=== PATIENT | male | born 1930 | race Caucasian/White ===

== ENCOUNTER → 2016-04-29 | Outpatient (CLI) | payer OTHER ==
[~2016-04-29] MED LIST: ACET1TAB84 PO; ASPI81TA28 PO; CALC500C70 PO; CHOL100010 PO; CLOP1TAB15 PO; CPR500 PO; CRD200 PO; DUTA0.5C PO; FLM4 PO; FRRS300 PO; LDDP5 TD; LISI40TA PO; LPR25 PO; MCLIN; MISC1CAP60 PO; MTR500 PO; OXYC-57 PO; PRAV20TA PO; RXC5 PO; SACC250C3 PO; TRAM-10 PO; VLTG EXT
[2016-04-29 18:05] LABS: URINE APPEARANCE CLEAR (CLEAR); URINE BILIRUBIN NEG (NEG); URINE COLOR YELLOW; URINE NITRITE NEG (NEG); URINE SPECIFIC GRAVITY 1.013 (1.000-1.030); UROBILINOGEN NEG (NEG)
[2016-04-29 18:21] LABS: MANUAL MICROSCOPIC REQUIRED? NO; REVIEW REQ? NO
== END | disposition home or self-care (01) ==
LOC: C.LABMFLN 14:43
PROVIDERS: ATTEND Family Medicine
DX: R35.0 Frequency of micturition (principal)

== ENCOUNTER 2016-05-15 05:57 | Inpatient (IN) | payer OTHER ==
--- NOTE | 2016-05-08 09:41 | PAT Medication Instructions ---
Service Date May 08, 2016. Current Home Medication List Acetaminophen (Tylenol Arthritis Ext Rel), 1-2 TAB PO Q8H PRN for Pain Aspirin (Aspirin Ec), 81 MG PO AFTERNOON Calcium/Vitamin D (Os-Ramez 500 Plus D), 1 TAB PO QD Cholecalciferol (Vitamin D), 1 TAB PO BID Clopidogrel (Plavix), 75 MG PO QPM Dutasteride (Avodart), 0.5 MG PO QD Lisinopril (Zestril), 40 MG PO QD Misc Natural Products (Saw Craig), Unknown Dose PO BID Pravastatin (Pravachol ), 20 MG PO QPM Tamsulosin HCl (Tamsulosin HCl), 0.4 MG PO DAILY Tramadol (Ultram), 50 MG PO Q8H PRN for Pain Medication Instructions For Your Scheduled Surgery - Hold the following medications as of 05/11/16 (per surgeons instructions): Clopidogrel (Plavix), 75 MG PO QPM - Hold the following medications as of 05/09/16: [employer] Natural Products (Saw Craig), Unknown Dose PO BID - Hold the following medications the morning of surgery: Lisinopril (Zestril), 40 MG PO QD Calcium/Vitamin D (Os-Ramez 500 Plus D), 1 TAB PO QD Cholecalciferol (Vitamin D), 1 TAB PO BID - Take the following medications the morning of surgery with a sip of water OTHERWISE NOTHING TO EAT OR DRINK AFTER MIDNIGHT: Acetaminophen (Tylenol Arthritis Ext Rel), 1-2 TAB PO Q8H PRN for Pain (okay to take if needed up to 4 hours prior to surgery) Tramadol (Ultram), 50 MG PO Q8H PRN for Pain (okay to take if needed up to 4 hours prior to surgery) Tamsulosin HCl (Tamsulosin HCl), 0.4 MG PO DAILY Dutasteride (Avodart), 0.5 MG PO QD - Take the following medications as scheduled the evening before surgery: Acetaminophen (Tylenol Arthritis Ext Rel), 1-2 TAB PO Q8H PRN for Pain Pravastatin (Pravachol ), 20 MG PO QPM Cholecalciferol (Vitamin D), 1 TAB PO BID Aspirin (Aspirin Ec), 81 MG PO AFTERNOON If you have any questions please call us at [phone] or [phone] or [phone]
[2016-05-08 10:04] LABS: MEAN CORPUSCULAR HGB CONC 33.1 g/dl (32-36); PLATELET COUNT 118 K/uL (130-400)
[2016-05-08 10:10] LABS: INR 1.1 (0.9-1.1); PARTIAL THROMBOPLASTIN RATIO 0.9; PROTHROMBIN TIME (PATIENT) 11.4 SECONDS (9.0-12.0)
--- NOTE | 2016-05-08 10:18 | DIAGNOSTIC IMAGING REPORT ---
CHEST PREADMISSION(PA/LAT) CLINICAL HISTORY: Preoperative evaluation. COMPARISON STUDY: Chest radiograph November 16, 2015. FINDINGS: Lung volumes are normal. Linear bibasilar opacities favor atelectasis. There is no evidence of pulmonary edema. Mild cardiomegaly is noted. No pneumothorax or pleural effusion is present. The appearance of the chest is unchanged. Lateral view demonstrates compression deformities of two thoracic vertebra which are new since exam of November 16, 2015. IMPRESSION: 1. No acute cardiopulmonary findings. 2. Mild cardiomegaly. 3. Linear bibasilar opacities suggestive of atelectasis. 4. Two thoracic spine compression fractures which are new since exam of November 16, 2015. Electronically signed by: Pavan Balderas M.D. 05/08/2016 10:15 AM Dictated Date/Time: 05/08/2016 10:14 AM
[2016-05-08 10:29] LABS: HEMATOCRIT 37.5 % (42-52); MEAN CELL VOLUME 101.1 fL (80-100); MEAN CORPUSCULAR HEMOGLOBIN 33.4 pg (25-34); RED BLOOD COUNT 3.71 M/uL (4.7-6.1); WHITE BLOOD COUNT 21.82 K/uL (4.8-10.8)
[2016-05-08 10:58] LABS: BUN/CREATININE RATIO 32.7 (10-20); CALCIUM 9.4 mg/dl (8.5-10.1); CREATININE 1.2 mg/dl (0.60-1.40); POTASSIUM 5.2 mmol/L (3.5-5.1)
[2016-05-08 11:11] LABS: COMPLETE YES; EOSINOPHIL % 0.9 %; LYMPH ABS # 18.35 K/uL (1.2-3.4); LYMPHOCYTE % 84.1 %; SMUDGE CELLS PRESENT
[~2016-05-15] VITALS: Ht 165.1 cm; Wt 60.7 kg
[2016-05-15] VITALS (20 sets, daily range): BP systolic 82–179; BP diastolic 41–95; PULSE 51–84; TEMP 36–36.8; O2SAT 95–99; Ht 165.1 cm; Wt 60.7 kg
[~2016-05-15 05:57] MED LIST changes: -CPR500 PO; -CRD200 PO; -FRRS300 PO; -LDDP5 TD; -LPR25 PO; -MCLIN; -MTR500 PO; -OXYC-57 PO; -RXC5 PO; -SACC250C3 PO; -VLTG EXT; +[UNRECOGNIZED DRUG - REMARK] SCH
[2016-05-15] MEDS ORDERED: HYDROCORTISONE IV 100 MG in SYRINGE 0 ML IV ONE (06:00)
[2016-05-15] MEDS ORDERED: SODIUM CHLORIDE 0.9% 1000ML 1,000 ML IV SCH (06:00)
[2016-05-15] MEDS ORDERED: CEFAZOLIN 1000MG/55 ML D5W IV SCH (06:00)
--- NOTE | 2016-05-15 06:25 | History and Physical ---
History & Physical CC: Abdominal aortic aneurysm HPI: Mr. 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 This appeared to be a pseudoaneurysm on the CTA. He does not have any history of significant back pain. He did have back surgery earlier this year. He said that it was for a fractured vertebral body which was compressed. This appears to be the same level of pseudoaneurysm. At this point, he denies any claudication or cerebrovascular insufficiency. He claims he had a stress test done prior to his back surgery which was normal. ALLERGIES: IVP DYE. MEDICATIONS: Aspirin, dutasteride, lisinopril, Plavix, pravastatin, saw palmetto, tamsulosin, tramadol and Tylenol. PAST MEDICAL HISTORY: Positive for hypertension, stroke, and lumbar vertebral fracture. PAST SURGICAL HISTORY: Includes tonsillectomy, hernia repair and back surgery. FAMILY HISTORY: Positive for hypertension, cancer and kidney disease. SOCIAL HISTORY: Does not smoke. He does not drink. REVIEW OF SYSTEMS: Ten systems were reviewed. Positive findings include a cold intolerance, joint swelling, hiatal hernia, constipation and occasional incontinence with prostate dysfunction. The rest of the review of systems is as per the HPI. PHYSICAL EXAMINATION: The patient is awake, oriented x3, has normal body habitus. He is in no apparent distress. His blood pressure is 140/84 on the left, 148/90 on the right. Head and neck within normal limits, no carotid bruits. Lungs are clear. Heart: Regular rate and rhythm. Abdominal exam is benign. I could not appreciate a pulsatile mass. Femoral pulses are +2 bilaterally and I could not appreciate pedal pulses yet, but he has good capillary refill in both feet. 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 PLAN AND RECOMMENDATIONS: Patient is admitted for a PEVAR repair of his abdominal aortic aneurysm. I have discussed the risks options and benefits of the procedure with the patient. The patient understands the risks options and benefits and agrees to the procedure.
[2016-05-15] MEDS ORDERED: MIDAZOLAM HCL 1 MG/ML 2ML VIAL ONE (07:08)
[2016-05-15] MEDS ORDERED: FENTANYL CITRATE INJ 50 MCG/1 ML 2 ML VIAL ONE ×3 (07:08→13:05)
[2016-05-15] MEDS ORDERED: EpHEDrine SULFATE INJ 50 MG/ML AMP IV PRN ×2 (07:15→13:15)
[2016-05-15] MEDS ORDERED: FENTANYL CITRATE INJ 50 MCG/1 ML 2 ML VIAL IV PRN ×2 (07:15→13:15)
[2016-05-15] MEDS ORDERED: ATROPINE SULFATE 0.1 MG/ML 5ML SYR IV PRN ×2 (07:15→13:15)
[2016-05-15 07:16] LABS: BUN/CREATININE RATIO 32.4 (10-20); CALCIUM 9.2 mg/dl (8.5-10.1); CREATININE 1.3 mg/dl (0.60-1.40); POTASSIUM 3.8 mmol/L (3.5-5.1)
[2016-05-15] MEDS ORDERED: HYDROCORTISONE SOD SUCCINATE 100 MG/2 ML VIAL ONE (07:17)
[2016-05-15] MEDS ORDERED: KETAMINE HCL INJ 50 MG/ML 10 ML VIAL ONE (08:28)
[2016-05-15] MEDS ORDERED: PROPOFOL IV EMULSION 10 MG/ML 20 ML VIAL IV ONE ×2 (09:34→12:07)
[2016-05-15] MEDS ORDERED: ESMOLOL HCL 10 MG/ML 10 ML VIAL ONE (09:34)
[2016-05-15] MEDS ORDERED: HEPARIN SOD (PORCINE) 1000 UNIT/ML 10 ML VIAL ONE (09:35)
[2016-05-15] MEDS ORDERED: SODIUM CHLORIDE 0.9% INJ 10 ML VIAL ONE (10:15)
[2016-05-15] MEDS ORDERED: IODIXANOL (VISIPAQUE) 270 MG/ML 150ML FLUSH ONE (11:13)
[2016-05-15] MEDS ORDERED: BUPIVACAINE/EPINEPHRINE 0.5% MPF 1:200,000 30 ML VIAL INFIL ONE (11:13)
[2016-05-15] MEDS ORDERED: EpHEDrine SULFATE 50MG/5ML SYR ONE (11:22)
[2016-05-15] MEDS ORDERED: GLYCOPYRROLATE INJ 0.2 MG/ML VIAL ONE (11:22)
[2016-05-15] MEDS ORDERED: NEOSTIGMINE METHYLSULFATE 5 MG/5 ML SYR ONE (11:22)
[2016-05-15] MEDS ORDERED: GELFOAM SIZE 100 TOP ONE (12:05)
[2016-05-15] MEDS ORDERED: BACITRACIN 50,000 UNITS IR ONE (12:07)
[2016-05-15] MEDS ORDERED: THROMBIN 20,000 UNITS (RECOMBINANT) TOP ONE (12:07)
--- NOTE | 2016-05-15 12:08 | [facility] Post Operative Brief Note ---
Immediate Operative Summary Operative Date May 15, 2016. Pre-Operative Diagnosis Abdominal Aortic Aneurysm Post-Operative Diagnosis Same Procedure(s) Performed Percutaneous Endovascular Anerysm Repair, Placement of Second Mainbody, Insertion of Iliac Plug left iliac Cross femoral bypass. Surgeon Dr. Morales Bruise Trimmer Surgeon(s) Sweetie Billingsley PAC Estimated Blood Loss 250 Findings no endoleaks seen Specimens None Anesthesia MAC and Gen Complication(s) None Disposition Recovery Room / PACU
[2016-05-15] MEDS ORDERED: MoRPHine SULFATE 4 MG/ML 1 ML CARP\\VIAL IV PRN (12:15)
[2016-05-15] MEDS ORDERED: ONDANSETRON INJ 2 MG/ML 2 ML VIAL IV PRN (12:15)
[2016-05-15] MEDS ORDERED: ROCURONIUM BROMIDE 10 MG/ML 5 ML VIAL ONE (12:37)
--- NOTE | 2016-05-15 12:56 | Anesthesiology Progress Note ---
Anesthesia Post Op Note Date & Time May 15, 2016 at 12:56 Vital Signs Pain Intensity: 0 Vital Signs Past 12 Hours Date Time Temp Pulse Resp B/P Pulse Ox O2 Delivery O2 Flow Rate FiO2 05/15/16 12:31 37.1 94 16 140/66 100 Mask 10 05/15/16 06:59 36.6 70 18 172/78 98 Room Air 179/95 Notes Mental Status: alert / awake / arousable, participated in evaluation Pt Amnestic to Procedure: Yes Nausea / Vomiting: adequately controlled Pain: adequately controlled Airway Patency, RR, SpO2: stable & adequate BP & HR: stable & adequate Hydration State: stable & adequate Anesthetic Complications: no major complications apparent
[2016-05-15 13:04] LABS: HEMATOCRIT 29.2 % (42-52)
--- NOTE | 2016-05-15 14:00 | Progress Note ---
Progress Note I assisted Dr Morales with Mode Holcomb's Percutaneous Endovascular Anerysm Repair , Placement of Second Mainbody, Insertion of Iliac Plug left iliac, Cross femoral bypass on 05/15/16, d/t lack of resident availability.
[2016-05-15] MEDS: CEFAZOLIN IV 1,000 MG in DEXTROSE 5% 50ML 50 ML IV SCH ×2 (15:07→23:45)
[2016-05-15] MEDS: D5W AND 1/2NSS 1,000 ML IV SCH (15:07)
[2016-05-15] MEDS ORDERED: INFLUENZA ADMINISTRATION CHARGE ONE ×2 (15:15→16:30)
[2016-05-15] MEDS ORDERED: INFLUENZA VIRUS QUAD VACCINE 0.5 ML SYR IM. ONE ×2 (15:15→20:00)
[2016-05-15] MEDS ORDERED: NURSING VERBAL MED ORDER ONE ×2 (15:30→20:45)
[2016-05-15] MEDS ORDERED: SODIUM CHLORIDE 0.9% 500ML 500 ML IV ONE (15:30)
[2016-05-15] MEDS: MoRPHine SULFATE 2 MG/ML CARP IV PRN ×2 (16:09→23:46)
[2016-05-15] MEDS ORDERED: HydrALAZINE HCL 20 MG/ML VIAL IV. ONE (20:45)
[2016-05-15] MEDS: CLOPIDOGREL BISULFATE 75 MG TAB PO SCH (20:53)
[2016-05-15] MEDS: CHOLECALCIFEROL 1000 INTER.UNIT TAB PO SCH (20:53)
[2016-05-15] MEDS: PRAVASTATIN SOD 20 MG TAB PO SCH (20:53)
[2016-05-15] MEDS: OXYCODONE/ACETAMINOPHEN 5-325 TAB PO PRN (20:55)
--- NOTE | 2016-05-15 21:31 | Critical Care Consultation ---
Critical Care Consultation Date of Consultation: May 15, 2016. Attending Physician: Timmy Morales M.D. 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 doing well, adequate pain control. denies any N/T, chest pain. SOB Past Medical/Surgical History PMH: hypertension, stroke, and lumbar vertebral fracture. PSH: tonsillectomy, hernia repair and back surgery. Family History hypertension, cancer and kidney disease. Social History Smoking Status: Never Smoker Marital Status: Occupation Status: retired Allergies Coded Allergies: Chlorpheniramine (Verified Allergy, Mild, PT UNSURE OF RXN, 05/15/16) Phenylpropanolamine (Verified Allergy, Mild, PT UNSURE OF RXN, 05/15/16) Antihistamines, Diphenhydramine-typ (Verified Allergy, Unknown, PT UNSURE OF RXN, 05/15/16) Iodinated Diagnostic Agents (Verified Allergy, Unknown, PT UNSURE OF RXN, 05/15/16) PATIENT REPORTS HAD BEEN PRE MEDICATED BEFORE THE USE OF THIS FOR A TEST WITHIN THE LAST 6 MON AND NO REACTION OCCURRED Pseudoephedrine (Verified Allergy, Unknown, PT UNSURE OF RXN, 05/08/16) Terfenadine (Verified Allergy, Unknown, PT UNSURE OF RXN, 05/08/16) Ticlopidine (Verified Allergy, Unknown, PT UNSURE OF RXN, ONLY WITH GENERIC FORM, 05/08/16) Home Medications Scheduled Aspirin (Aspirin Ec), 81 MG PO AFTERNOON Calcium/Vitamin D (Os-Ramez 500 Plus D), 1 TAB PO QD Cholecalciferol (Vitamin D), 1 TAB PO BID Clopidogrel (Plavix), 75 MG PO QPM Dutasteride (Avodart), 0.5 MG PO QD Lisinopril (Zestril), 40 MG PO QD Misc Natural Products (Saw [place]), Unknown Dose PO BID Pravastatin (Pravachol ), 20 MG PO QPM Tamsulosin HCl (Tamsulosin HCl), 0.4 MG PO DAILY Scheduled PRN Acetaminophen (Tylenol Arthritis Ext Rel), 1-2 TAB PO Q8H PRN for Pain Tramadol (Ultram), 50 MG PO Q8H PRN for Pain Current Inpatient Medications Current Inpatient Medications Medications (Trade) Dose Ordered Sig/Art Route Start Time Stop Time Status Last Admin Dose Admin Morphine Sulfate (MoRPHine SULFATE INJ) If PO analgesic is orde... Q2H PRN IV 05/15/16 12:15 05/29/16 12:14 Oxycodone/ Acetaminophen (Percocet 5-325mg Tab) `1-2 TABS FOR MODER... Q4H PRN PO 05/15/16 12:15 05/29/16 12:14 05/15/16 20:55 2 TAB Ondansetron HCl 4 mg 4 mg Q6H PRN IV 05/15/16 12:15 06/14/16 12:14 Pantoprazole Sodium 40 mg/ Syringe 10 ml @ 5 mls/min DAILY@11 IV 05/16/16 11:00 06/15/16 10:59 Cefazolin Sodium/ Dextrose (Ancef Iv/D5 50ml) 55 ml @ 100 mls/hr Q8H IV 05/15/16 16:00 05/16/16 00:32 05/15/16 15:07 100 MLS/HR Enoxaparin Sodium 30 mg 30 mg Q12H SQ 05/16/16 08:00 06/15/16 07:59 Dextrose/Sodium Chloride (D5W And 1/2nss) 1,000 ml @ 125 mls/hr Q8H IV 05/15/16 14:15 06/14/16 12:07 05/15/16 15:07 125 MLS/HR Aspirin (Ecotrin Tab) 81 mg DAILY PO 05/16/16 09:00 06/15/16 08:59 Calcium/Vitamin D (Caltrate Plus Tab) 1 tab DAILY@1200 PO 05/16/16 12:00 06/15/16 11:59 Cholecalciferol (Vitamin D Tab) 1,000 inter.unit BID PO 05/15/16 21:00 06/14/16 20:59 05/15/16 20:53 1,000 INTER.UNIT Clopidogrel Bisulfate (plAVix TAB) 75 mg QPM PO 05/15/16 21:00 06/14/16 20:59 05/15/16 20:53 75 MG Lisinopril (Zestril Tab) 40 mg DAILY PO 05/16/16 09:00 06/15/16 08:59 Pravastatin Sodium (Pravachol Tab) 20 mg QPM PO 05/15/16 21:00 06/14/16 20:59 05/15/16 20:53 20 MG Tamsulosin HCl (Flomax Cap) 0.4 mg DAILY PO 05/16/16 09:00 06/15/16 08:59 Miscellaneous Information (Order Awaiting Action) 1 ea QS N/A 05/15/16 16:00 06/14/16 15:59 Morphine Sulfate (MoRPHine SULFATE INJ) If PO analgesic is orde... Q2H PRN IV 05/15/16 13:30 05/29/16 13:29 05/15/16 16:09 2 MG Review of Systems Constitutional: No chills, No fever Eyes: No worsening of vision ENT: No hearing loss Respiratory: No cough, No sputum Cardiovascular: No chest pain Abdomen: + constipation, No nausea, No pain Musculoskeletal: No joint pain Genitourinary - Male: + urinary hesitancy, + urinary incontinence Physical Exam Date Time Temp Pulse Resp B/P Pulse Ox O2 Delivery O2 Flow Rate FiO2 05/15/16 17:58 61 20 139/60 97 Room Air 05/15/16 17:13 59 18 131/51 97 Room Air 05/15/16 16:59 60 19 102/45 98 Room Air 05/15/16 16:43 58 19 120/51 98 Room Air 05/15/16 16:30 36.3 63 18 114/50 98 05/15/16 16:13 59 17 124/56 99 Room Air 05/15/16 16:00 Room Air 05/15/16 15:58 61 18 127/54 97 Room Air 05/15/16 15:45 36.3 60 19 122/54 97 05/15/16 15:30 36.0 56 18 114/45 95 05/15/16 15:09 55 17 82/41 96 Room Air 05/15/16 15:05 51 18 83/43 98 Room Air 05/15/16 15:03 53 16 85/42 97 Room Air 05/15/16 14:58 53 17 87/46 96 Room Air 05/15/16 14:40 57 18 98/51 96 Room Air 05/15/16 14:28 58 13 96/50 95 Room Air 05/15/16 14:00 36.8 61 18 113/58 96 Room Air 05/15/16 13:20 36.8 61 16 121/63 100 Nasal Cannula 3 05/15/16 13:10 69 16 121/60 99 Nasal Cannula 3 05/15/16 13:00 63 16 130/60 99 Mask 10 05/15/16 12:50 72 16 128/69 99 Mask 10 05/15/16 12:40 80 16 127/73 98 Mask 10 05/15/16 12:31 37.1 94 16 140/66 100 Mask 10 05/15/16 06:59 36.6 70 18 172/78 98 Room Air 179/95 General Appearance: WD/WN, no apparent distress Head: normocephalic Eyes: normal inspection ENT: hearing grossly normal Neck: supple Respiratory/Chest: chest non-tender, lungs clear, normal breath sounds Cardiovascular: regular rate, rhythm Abdomen/GI: normal bowel sounds, non tender Extremities/Musculoskelatal: no pedal edema Neurologic/Psych: alert, normal mood/affect, oriented x 3 Laboratory Results Last 24 Hours Test 05/15/16 06:35 05/15/16 12:55 Sodium Level 141 mmol/L Potassium Level 3.8 mmol/L Chloride Level 105 mmol/L Carbon Dioxide Level 25 mmol/L Anion Gap 11.0 mmol/L Blood Urea Nitrogen 42 mg/dl Creatinine 1.30 mg/dl Est Creatinine Clear Calc Drug Dose 31.6 ml/min Estimated GFR () 56.9 Estimated GFR (Non- 49.1 BUN/Creatinine Ratio 32.4 Random Glucose 100 mg/dl Calcium Level 9.2 mg/dl Hemoglobin 9.7 g/dL Hematocrit 29.2 % Assessment & Plan 85 y/o M s/p abdominal aortic aneurysm repair on 05/15 Neuro: AAOX3 h/o stroke - aspirin and Plavix currently held AAA s/p PEVAR repair; - NPO except meds - Continue IVF - pain control with morphine and Percocet - Abx prophylaxis with cefazolin CVS: HTN: - lisinopril on hold - hydralzine PRN Hyperlipidemia: Continue pravastatin BPH; -continue tamsulosin GI/FEN: NPO protonix DVT : scds Lovenox sq tomorrow Resident Physician Supervision Note: Dr. Garcia Forrester was resident physician during care of patient. I separately evaluated patient and did history and exam. I discussed the case with the resident and generally agree with the findings and plan. Patient tolerating by mouth, mildly decreased urine output, will give Lasix 20 mg 1, decreased IV fluids to 100 MLS per hour. Routine postop care Documented By: Wilman Paulino DO
[2016-05-16] VITALS (20 sets, daily range): BP systolic 117–164; BP diastolic 55–95; PULSE 74–119; TEMP 36.4–36.8; O2SAT 94–100
[2016-05-16] MEDS: D5W AND 1/2NSS 1,000 ML IV SCH ×2 (01:30→07:31)
[2016-05-16] MEDS ORDERED: FUROSEMIDE INJ 20 MG in SYRINGE 0 ML IV ONE (02:00)
[2016-05-16] MEDS: MoRPHine SULFATE 2 MG/ML CARP IV PRN (02:59)
[2016-05-16 05:27] LABS: HEMATOCRIT 30.4 % (42-52)
[2016-05-16 05:57] LABS: BUN/CREATININE RATIO 23.9 (10-20); CREATININE 1.4 mg/dl (0.60-1.40); POTASSIUM 4.2 mmol/L (3.5-5.1)
[2016-05-16] MEDS ORDERED: NURSING VERBAL MED ORDER ONE ×2 (07:15→10:00)
[2016-05-16] MEDS ORDERED: METOPROLOL TARTRATE 1 MG/ML VIAL IV ONE (07:30)
[2016-05-16] MEDS ORDERED: MAGNESIUM SULFATE 1GM / D5W 1 GM in PREMIXED IN D5W 100 ML IV STA (07:32)
[2016-05-16] MEDS: TAMSULOSIN HCL 0.4 MG CAP PO SCH (07:33)
[2016-05-16] MEDS: ASPIRIN 81 MG ECTAB PO SCH (07:33)
[2016-05-16] MEDS: LISINOPRIL 40 MG TAB PO SCH (07:33)
[2016-05-16] MEDS: CHOLECALCIFEROL 1000 INTER.UNIT TAB PO SCH ×2 (07:33→20:30)
[2016-05-16] MEDS: OXYCODONE/ACETAMINOPHEN 5-325 TAB PO PRN ×2 (07:34→20:31)
[2016-05-16] MEDS ORDERED: POTASSIUM CHLORIDE 10 MEQ TABCR PO ONE (07:45)
[2016-05-16] MEDS: CALCIUM 600MG + VIT D 400 IU TAB PO SCH (07:50)
[2016-05-16] MEDS ORDERED: AMIODARONE IV BOLUS / DRIP IV STA (07:50)
[2016-05-16 07:52] LABS: MEAN CORPUSCULAR HEMOGLOBIN 32.7 pg (25-34); MEAN PLATELET VOLUME 11.9 fL (7.4-10.4); PLATELET COUNT 127 K/uL (130-400); RED BLOOD COUNT 3.09 M/uL (4.7-6.1); WHITE BLOOD COUNT 20.26 K/uL (4.8-10.8)
[2016-05-16] MEDS ORDERED: ENOXAPARIN 30 MG/0.3 ML SYR SQ SCH (08:00)
[2016-05-16 08:05] LABS: MEAN CELL VOLUME 98.7 fL (80-100); MEAN CORPUSCULAR HGB CONC 33.6 g/dl (32-36)
[2016-05-16 08:13] LABS: MAGNESIUM 1.9 mg/dl (1.8-2.4); PHOSPHORUS 3.5 mg/dl (2.5-4.9); THYROID STIMULATING HORMONE 0.428 uIu/ml (0.300-4.500)
[2016-05-16] MEDS ORDERED: AMIODARONE / D5W 100 ML IV ONE (08:15)
[2016-05-16] MEDS ORDERED: AMIODARONE / D5W 200 ML IV SCH (08:30)
[2016-05-16 08:52] LABS: ESTIMATED AVERAGE GLUCOSE 120 mg/dl; HA1C FLAG Normal (Normal)
[2016-05-16] MEDS ORDERED: PANTOprazole SOD 40 MG TAB PO SCH (09:00)
--- NOTE | 2016-05-16 09:27 | Anesthesiology Progress Note ---
Anesthesia Post Op Note Date & Time May 16, 2016 at 09:26 Vital Signs Pain Intensity: 6.0 Vital Signs Past 12 Hours Date Time Temp Pulse Resp B/P Pulse Ox O2 Delivery O2 Flow Rate FiO2 05/16/16 07:32 119 144/95 05/16/16 06:00 102 23 127/58 100 Room Air 05/16/16 04:00 36.4 112 18 128/83 100 Room Air 05/16/16 04:00 99 Room Air 05/16/16 02:00 98 24 164/74 96 Room Air 05/16/16 00:01 36.6 101 23 153/62 97 Room Air 05/15/16 23:59 96 Room Air 05/15/16 22:00 84 22 146/63 97 Room Air Notes Mental Status: alert / awake / arousable, participated in evaluation Pt Amnestic to Procedure: Yes Nausea / Vomiting: adequately controlled Pain: adequately controlled Airway Patency, RR, SpO2: stable & adequate BP & HR: stable & adequate Hydration State: stable & adequate Anesthetic Complications: no major complications apparent
[2016-05-16] MEDS ORDERED: PANTOprazole INJ 40 MG in SYRINGE 0 ML IV SCH (11:00)
--- NOTE | 2016-05-16 11:03 | Critical Care Progress Note ---
Critical Care Progress Note Date of Service May 16, 2016. Attending Dr. 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 doing well, adequate pain control. had a run of A fib on the monitor yesterday but he was asymptomatic. denies any N/T, chest pain, SOB , palpitations, lightheadedness, dizziness Objective GENERAL: Patient is in no acute distress. HEENT: No acute trauma, normocephalic atraumatic, mucous membranes moist, no nasal congestion, no scleral icterus. NECK: No stridor, no adenopathy, no meningismus, trachea is midline. LUNGS: Clear to auscultation bilaterally, no wheeze, no rhonchi, breath sounds equal. HEART: Without murmurs gallops or rubs, regular rate and rhythm. ABDOMEN: Soft, some tenderness at surgical site EXTREMITIES: No cyanosis or edema, full range of motion of all the joints without pain or difficulty, no signs for acute trauma. NEUROLOGIC: Oriented x 3, no acute motor or sensory deficits, no focal weakness. SKIN: No rash, no jaundice, no diaphoresis. EKG: Sinus tachycardia with Premature supraventricular complexes and with occasional Premature ventricular complexes Right bundle branch block Abnormal ECG When compared with ECG of 16-NOV-2015 14:22, Premature ventricular complexes are now Present Vent. rate has increased BY [address] now depressed in Anterior leads T wave inversion now evident in Anterior leads Assessment & Plan 85 y/o M s/p abdominal aortic aneurysm repair on 05/15, post op day 1. Was hypertensive last night , BP >171/81 and received 10 mg hydralazine. He also was found to be in atrial fibrillation overnight but was asymptomatic . Neuro: AAOX3 h/o stroke - aspirin and Plavix AAA s/p PEVAR repair; - Continue IVF, rate decreased to - pain control with morphine and Percocet CVS: Atrial fibrillation with RVR : EKG :Sinus tachycardia with Premature supraventricular complexes and with occasional Premature ventricular complexes. Right bundle branch block - Started on amiodarone drip - Metoprolol 25 mg BId - Electrolytes WNL - TSH and free T4 WNL - Amiodarone PO 200 mg TID - Troponins trended HTN: - lisinopril 40 mg - hydralzine PRN Hyperlipidemia: Continue pravastatin : BPH; -continue tamsulosin Renal: mildly decreased UO, received 20 mg of Lasix GI/FEN: restart diet Protonix dc DVT : scds Lovenox sq on hold for now Resident Physician Supervision Note: Dr. Garcia Forrester was resident physician during care of patient. I separately evaluated patient and did history and exam. I discussed the case with the resident and generally agree with the findings and plan. Patient went into paroxysmal atrial fibrillation with rapid ventricular response , responded to the addition of metoprolol. Decreased IV fluids. Patient highly complex given peripheral vascular disease, recent postop, cardiovascular disease, arrhythmia. Documented By: Wilman Paulino DO Data Medications: Current Inpatient Medications Medications (Trade) Dose Ordered Sig/Art Route Start Time Stop Time Status Last Admin Dose Admin Morphine Sulfate (MoRPHine SULFATE INJ) If PO analgesic is orde... Q2H PRN IV 05/15/16 12:15 05/29/16 12:14 Oxycodone/ Acetaminophen (Percocet 5-325mg Tab) `1-2 TABS FOR MODER... Q4H PRN PO 05/15/16 12:15 05/29/16 12:14 05/16/16 07:34 2 TAB Ondansetron HCl (Zofran Inj) 4 mg Q6H PRN IV 05/15/16 12:15 06/14/16 12:14 Aspirin (Ecotrin Tab) 81 mg DAILY PO 05/16/16 09:00 06/15/16 08:59 05/16/16 07:33 81 MG Calcium/Vitamin D (Caltrate Plus Tab) 1 tab DAILY@1200 PO 05/16/16 12:00 06/15/16 11:59 05/16/16 07:50 1 TAB Cholecalciferol (Vitamin D Tab) 1,000 inter.unit BID PO 05/15/16 21:00 06/14/16 20:59 05/16/16 07:33 1,000 INTER.UNIT Clopidogrel Bisulfate (plAVix TAB) 75 mg QPM PO 05/15/16 21:00 06/14/16 20:59 05/15/16 20:53 75 MG Lisinopril (Zestril Tab) 40 mg DAILY PO 05/16/16 09:00 06/15/16 08:59 05/16/16 07:33 40 MG Pravastatin Sodium (Pravachol Tab) 20 mg QPM PO 05/15/16 21:00 06/14/16 20:59 05/15/16 20:53 20 MG Tamsulosin HCl (Flomax Cap) 0.4 mg DAILY PO 05/16/16 09:00 06/15/16 08:59 05/16/16 07:33 0.4 MG Miscellaneous Information (Order Awaiting Action) 1 ea QS N/A 05/15/16 16:00 06/14/16 15:59 Morphine Sulfate (MoRPHine SULFATE INJ) If PO analgesic is orde... Q2H PRN IV 05/15/16 13:30 05/29/16 13:29 05/16/16 02:59 2 MG Pantoprazole Sodium 40 mg 40 mg QAM PO 05/16/16 09:00 06/15/16 08:59 05/16/16 07:48 40 MG Amiodarone HCL/ Dextrose 200 ml @ 33.3 mls/hr Q6H1M IV 05/16/16 08:30 05/16/16 14:30 05/16/16 09:12 33.3 MLS/HR Amiodarone HCL/ Dextrose (Nexterone / D5w) 200 ml @ 16.7 mls/hr [id number] IV 05/16/16 14:45 06/15/16 14:44 Enoxaparin Sodium (Lovenox Inj) 30 mg DAILY SQ 05/17/16 09:00 06/16/16 08:59 I & O: 24-Hour Column 05/16/16 07:59 Intake Total 5280 ml Output Total 1200 ml Balance 4080 ml Vital Signs: Date Time Temp Pulse Resp B/P Pulse Ox O2 Delivery O2 Flow Rate FiO2 05/16/16 09:31 87 15 122/69 99 Room Air 05/16/16 08:58 83 20 130/63 97 Room Air 05/16/16 08:00 Room Air 05/16/16 07:58 36.7 83 20 141/67 96 Room Air 05/16/16 07:32 119 23 144/95 98 Room Air 05/16/16 07:32 119 144/95 05/16/16 06:00 102 23 127/58 100 Room Air 05/16/16 04:00 36.4 112 18 128/83 100 Room Air 05/16/16 04:00 99 Room Air 05/16/16 02:00 98 24 164/74 96 Room Air 05/16/16 00:01 36.6 101 23 153/62 97 Room Air 05/15/16 23:59 96 Room Air 05/15/16 22:00 84 22 146/63 97 Room Air 05/15/16 20:00 36.3 73 22 166/74 99 Room Air 05/15/16 20:00 97 Room Air 05/15/16 17:58 61 20 139/60 97 Room Air 05/15/16 17:13 59 18 131/51 97 Room Air 05/15/16 16:59 60 19 102/45 98 Room Air 05/15/16 16:43 58 19 120/51 98 Room Air 05/15/16 16:30 36.3 63 18 114/50 98 05/15/16 16:13 59 17 124/56 99 Room Air 05/15/16 16:00 Room Air 05/15/16 15:58 61 18 127/54 97 Room Air 05/15/16 15:45 36.3 60 19 122/54 97 05/15/16 15:30 36.0 56 18 114/45 95 05/15/16 15:09 55 17 82/41 96 Room Air 05/15/16 15:05 51 18 83/43 98 Room Air 05/15/16 15:03 53 16 85/42 97 Room Air 05/15/16 14:58 53 17 87/46 96 Room Air 05/15/16 14:40 57 18 98/51 96 Room Air 05/15/16 14:28 58 13 96/50 95 Room Air 05/15/16 14:00 36.8 61 18 113/58 96 Room Air 05/15/16 13:20 36.8 61 16 121/63 100 Nasal Cannula 3 05/15/16 13:10 69 16 121/60 99 Nasal Cannula 3 05/15/16 13:00 63 16 130/60 99 Mask 10 05/15/16 12:50 72 16 128/69 99 Mask 10 05/15/16 12:40 80 16 127/73 98 Mask 10 05/15/16 12:31 37.1 94 16 140/66 100 Mask 10 Laboratory Results: Last 24 Hours Test 05/15/16 12:55 05/16/16 05:00 05/16/16 08:30 Hemoglobin 9.7 g/dL 10.2 g/dL Hematocrit 29.2 % 30.4 % White Blood Count 20.26 K/uL Red Blood Count 3.09 M/uL Mean Corpuscular Volume 98.7 fL Mean Corpuscular Hemoglobin 32.7 pg Mean Corpuscular Hemoglobin Concent 33.6 g/dl RDW Standard Deviation 63.1 fL RDW Coefficient of Variation 17.8 % Platelet Count 127 K/uL Mean Platelet Volume 11.9 fL Sodium Level 142 mmol/L Potassium Level 4.2 mmol/L Chloride Level 109 mmol/L Carbon Dioxide Level 20 mmol/L Anion Gap 13.0 mmol/L Blood Urea Nitrogen 34 mg/dl Creatinine 1.40 mg/dl Est Creatinine Clear Calc Drug Dose 29.3 ml/min Estimated GFR () 52.0 Estimated GFR (Non- 44.9 BUN/Creatinine Ratio 23.9 Random Glucose 224 mg/dl Estimated Average Glucose 120 mg/dl Hemoglobin A1c 5.8 % Calcium Level 8.0 mg/dl Phosphorus Level 3.5 mg/dl Magnesium Level 1.9 mg/dl Thyroid Stimulating Hormone (TSH) 0.428 uIu/ml Thyroxine (T4) 5.6 mcg/dl
[2016-05-16] MEDS: AMIODARONE 200 MG TAB PO SCH ×2 (13:43→17:05)
--- NOTE | 2016-05-16 13:52 | Progress Note ---
Progress Note Date of Service: May 16, 2016. Subjective Patient complains of lower abdominal discomfort and groin discomfort Objective Vital Signs Vital Signs Past 12 Hours Date Time Temp Pulse Resp B/P Pulse Ox O2 Delivery O2 Flow Rate FiO2 05/16/16 12:00 Room Air 05/16/16 12:00 87 05/16/16 10:58 36.7 82 23 137/58 97 Room Air 05/16/16 09:58 79 23 128/60 95 Room Air 05/16/16 09:31 87 15 122/69 99 Room Air 05/16/16 08:58 83 20 130/63 97 Room Air 05/16/16 08:00 Room Air 05/16/16 08:00 Room Air 05/16/16 07:58 36.7 83 20 141/67 96 Room Air 05/16/16 07:32 119 23 144/95 98 Room Air 05/16/16 07:32 119 144/95 05/16/16 06:00 102 23 127/58 100 Room Air 05/16/16 04:00 36.4 112 18 128/83 100 Room Air 05/16/16 04:00 99 Room Air Exam Awake and alert VSS Abebrile Sinus rhythm at present. Dressing intact. Good doppler flow. Urine output improved Still with bowen Intake & Output 8-Hour Column 05/15/16 05/15/16 05/16/16 15:59 23:59 07:59 Intake Total 2500 ml 1794 ml 986 ml Output Total 325 ml 275 ml 600 ml Balance 2175 ml 1519 ml 386 ml 24-Hour Column 05/16/16 07:59 Intake Total 5280 ml Output Total 1200 ml Balance 4080 ml Laboratory and Microbiology Results Past 24 Hours Test 05/16/16 05:00 05/16/16 08:30 05/16/16 11:03 05/16/16 12:32 Range/Units White Blood Count 20.26 4.8-10.8 K/uL Red Blood Count 3.09 4.7-6.1 M/uL Hemoglobin 10.2 14.0-18.0 g/dL Hematocrit 30.4 42-52 % Mean Corpuscular Volume 98.7 80-100 fL Mean Corpuscular Hemoglobin 32.7 25-34 pg Mean Corpuscular Hemoglobin Concent 33.6 32-36 g/dl RDW Standard Deviation 63.1 36.4-46.3 fL RDW Coefficient of Variation 17.8 11.5-14.5 % Platelet Count 127 130-400 K/uL Mean Platelet Volume 11.9 7.4-10.4 fL Sodium Level 142 136-145 mmol/L Potassium Level 4.2 3.5-5.1 mmol/L Chloride Level 109 98-107 mmol/L Carbon Dioxide Level 20 21-32 mmol/L Anion Gap 13.0 3-11 mmol/L Blood Urea Nitrogen 34 7-18 mg/dl Creatinine 1.40 0.60-1.40 mg/dl Est Creatinine Clear Calc Drug Dose 29.3 ml/min Estimated GFR () 52.0 Estimated GFR (Non- 44.9 BUN/Creatinine Ratio 23.9 10-20 Random Glucose 224 70-99 mg/dl Estimated Average Glucose 120 mg/dl Hemoglobin A1c 5.8 4.5-5.6 % Calcium Level 8.0 8.5-10.1 mg/dl Phosphorus Level 3.5 2.5-4.9 mg/dl Magnesium Level 1.9 1.8-2.4 mg/dl Thyroid Stimulating Hormone (TSH) 0.428 0.300-4.500 uIu/ml Thyroxine (T4) 5.6 4.5-10.9 mcg/dl Bedside Glucose 177 70-99 mg/dl Troponin I < 0.015 0-0.045 ng/ml Microbiology Results 05/15/16 MRSA DNA Surveillance Screen - Final, Complete Specimen Negative for MRSA by DNA Probe Imp: Post EndoAAA repair with unibody graft and cross fem bypass Plan: Continue as per retail sales merchandiser development. Doing well from endo repair Will leave bowen in for now due to difficulty to place
[2016-05-16] MEDS: AMIODARONE / D5W 200 ML IV SCH (15:00)
[2016-05-16] MEDS: CLOPIDOGREL BISULFATE 75 MG TAB PO SCH (20:29)
[2016-05-16] MEDS: PRAVASTATIN SOD 20 MG TAB PO SCH (20:29)
[2016-05-16] MEDS: METOPROLOL TARTRATE 25 MG TAB PO SCH (20:29)
[2016-05-17] VITALS (17 sets, daily range): BP systolic 102–140; BP diastolic 44–72; PULSE 57–85; TEMP 35.6–37; O2SAT 94–100
[2016-05-17] MEDS: AMIODARONE / D5W 200 ML IV SCH (02:24)
[2016-05-17 07:55] LABS: HEMATOCRIT 21.2 % (42-52)
[2016-05-17 08:27] LABS: CREATININE 1.2 mg/dl (0.60-1.40); PHOSPHORUS 3.3 mg/dl (2.5-4.9); POTASSIUM 4.2 mmol/L (3.5-5.1)
[2016-05-17] MEDS ORDERED: ENOXAPARIN 30 MG/0.3 ML SYR SQ SCH (09:00)
--- NOTE | 2016-05-17 09:37 | DIAGNOSTIC IMAGING REPORT ---
CT SCAN OF THE ABDOMEN AND PELVIS WITHOUT CONTRAST CLINICAL HISTORY: Lower abdominal pain. History of bypass. COMPARISON STUDY: Outside CT angiography was done Hospital dated 02/13/2016 TECHNIQUE: CT scan of the abdomen and pelvis was performed from the lung bases to the proximal femurs. Images are reviewed in the axial, sagittal, and coronal planes. IV contrast was not administered for this examination. CT DOSE: 649.30 mGycm FINDINGS: Lower chest: There are small bilateral pleural effusions with bibasal atelectatic changes. The heart is enlarged with coronary artery calcifications. Liver: The unenhanced liver is normal in size, contour, and attenuation. There is no intrahepatic biliary ductal dilatation. Gallbladder: Suspected vicarious excretion of contrast Spleen: Normal in size and attenuation. Pancreas: Unremarkable. Adrenal glands: Unremarkable. Kidneys: No renal, ureteral, or bladder calculi are visualized. There is a 13 mm left renal cyst Bowel: There are no transition zones to indicate bowel obstruction. There is fecal retention. There is colonic diverticulosis. There is infiltration of the perisigmoid fat and mild sigmoid wall thickening. The findings are consistent with sigmoid diverticulitis. Peritoneum: There is no intraperitoneal free air or abdominal ascites. 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 The [place] aneurysm measures 42 mm in diameter. The patient is also status post a femorofemoral bypass graft. There are small hematomas at the level of the femoral anastomotic sites. There is air within the soft tissues, consistent with recent surgery. Adenopathy: There are persistent enlarged aortocaval and iliac lymph nodes. The findings are concerning for metastatic disease/lymphoma. Multiple enlarged mesenteric lymph nodes are also visualized. Pelvic viscera: There is residual a Davis catheter. There is air within the bladder presumably iatrogenic. Prostate is enlarged. Skeletal structures: There is evidence for prior L4 vertebral plasty. There is a superior endplate L3 compression deformity. There is a T10 compression fracture which appears acute/subacute. IMPRESSION: 1. Small bilateral pleural effusions and bibasal atelectasis 2. Acute sigmoid diverticulitis 3. Pathologic retroperitoneal iliac and mesenteric lymphadenopathy. The findings are viewed as suspicious for metastatic disease/lymphoma. Clinical correlation this regard is advocated 4. T10 compression fracture was which appears acute/subacute 5. Evidence of aortobiiliac stent graft repair of abdominal aortic aneurysm. Evidence of a femorofemoral bypass graft. Suspected small bilateral femoral anastomotic hematomas Electronically signed by: Madi Ramirez M.D. 05/17/2016 9:36 AM Dictated Date/Time: 05/17/2016 9:24 AM
[2016-05-17] MEDS: AMIODARONE 200 MG TAB PO SCH ×3 (09:48→16:32)
[2016-05-17] MEDS: ASPIRIN 81 MG ECTAB PO SCH (09:48)
[2016-05-17] MEDS: CHOLECALCIFEROL 1000 INTER.UNIT TAB PO SCH ×2 (09:48→20:09)
[2016-05-17] MEDS: METOPROLOL TARTRATE 25 MG TAB PO SCH ×2 (09:48→20:08)
[2016-05-17] MEDS: TAMSULOSIN HCL 0.4 MG CAP PO SCH (09:49)
[2016-05-17] MEDS: LISINOPRIL 40 MG TAB PO SCH (09:49)
--- NOTE | 2016-05-17 10:37 | Clinical Documentation Query ---
CLINICAL DOCUMENTATION QUERY Patient is an 85 year old male, POD #1 from PEVAR, unibody graft, and cross femoral bypass. Preoperative hemoglobin and hematocrit were 12.4 g/dl and 37.5%. POD #1, repeat values are 7.4 g/dl and 21.2%. Patient is being transfused 2 units of PRBC's. Net I/O is positive >5,500 ml's at this time. In your clinical opinion is this patient being managed for: ( ) Acute blood loss and hemodilutional anemia ( ) Other explanation of clinical findings (Please Explain) ( ) Unable to determine (Please Define) ( ) Need to Discuss ( ) Not Agree The medical record reflects the following clinical findings, treatment, and risk factors. Clinical Indicators: As above Treatment: Transfusion of PRBC's, serial hematology, I/O, CT abdomen Risk Factors: Acute perioperative blood losses and IVF administration Please clarify and document your clinical opinion in the progress notes and discharge summary. Terms such as "probable", "suspected", "likely", "questionable", "possible", or "still to be ruled out" are acceptable. IF IN AGREEMENT, YOU MUST DOCUMENT ABOVE DIAGNOSTIC STATEMENT IN DAILY PROGRESS NOTES AND DISCHARGE SUMMARY. This document is not part of the patient's record.
[2016-05-17] MEDS: CALCIUM 600MG + VIT D 400 IU TAB PO SCH (11:45)
--- NOTE | 2016-05-17 12:29 | Medical Consult ---
Consultation Date of Consultation: May 17, 2016. Attending Physician: Timmy Morales M.D. Reason for Consultation: Medical Management History of Present Illness Patient is a 85 y.o.M PMHx of HTN and lumbar surgery presented to the hospital for elective repair of a abdominal aortic aneurysm. On 05.15.16 patient had a Percutaneous Endovascular Anerysm Repair done by Dr. Morales. Post-op patient had a drop in HGB from 10 to 7.4. Patient currently receiving 2 units of blood however denies any chest pain, dizziness or fevers. Social History Smoking Status: Never Smoker Marital Status: Occupation Status: retired Allergies Coded Allergies: Chlorpheniramine (Verified Allergy, Mild, PT UNSURE OF RXN, 05/15/16) Phenylpropanolamine (Verified Allergy, Mild, PT UNSURE OF RXN, 05/15/16) Antihistamines, Diphenhydramine-typ (Verified Allergy, Unknown, PT UNSURE OF RXN, 05/15/16) Iodinated Diagnostic Agents (Verified Allergy, Unknown, PT UNSURE OF RXN, 05/15/16) PATIENT REPORTS HAD BEEN PRE MEDICATED BEFORE THE USE OF THIS FOR A TEST WITHIN THE LAST 6 MON AND NO REACTION OCCURRED Pseudoephedrine (Verified Allergy, Unknown, PT UNSURE OF RXN, 05/08/16) Terfenadine (Verified Allergy, Unknown, PT UNSURE OF RXN, 05/08/16) Ticlopidine (Verified Allergy, Unknown, PT UNSURE OF RXN, ONLY WITH GENERIC FORM, 05/08/16) Current Inpatient Medications Current Inpatient Medications Medications (Trade) Dose Ordered Sig/Art Route Start Time Stop Time Status Last Admin Dose Admin Morphine Sulfate (MoRPHine SULFATE INJ) If PO analgesic is orde... Q2H PRN IV 05/15/16 12:15 05/29/16 12:14 Oxycodone/ Acetaminophen (Percocet 5-325mg Tab) `1-2 TABS FOR MODER... Q4H PRN PO 05/15/16 12:15 05/29/16 12:14 05/16/16 20:31 2 TAB Ondansetron HCl (Zofran Inj) 4 mg Q6H PRN IV 05/15/16 12:15 06/14/16 12:14 Aspirin (Ecotrin Tab) 81 mg DAILY PO 05/16/16 09:00 06/15/16 08:59 05/17/16 09:48 81 MG Calcium/Vitamin D (Caltrate Plus Tab) 1 tab DAILY@1200 PO 05/16/16 12:00 06/15/16 11:59 05/16/16 07:50 1 TAB Cholecalciferol (Vitamin D Tab) 1,000 inter.unit BID PO 05/15/16 21:00 06/14/16 20:59 05/17/16 09:48 1,000 INTER.UNIT Clopidogrel Bisulfate (plAVix TAB) 75 mg QPM PO 05/15/16 21:00 06/14/16 20:59 05/16/16 20:29 75 MG Lisinopril (Zestril Tab) 40 mg DAILY PO 05/16/16 09:00 06/15/16 08:59 05/17/16 09:49 40 MG Pravastatin Sodium (Pravachol Tab) 20 mg QPM PO 05/15/16 21:00 06/14/16 20:59 05/16/16 20:29 20 MG Tamsulosin HCl (Flomax Cap) 0.4 mg DAILY PO 05/16/16 09:00 06/15/16 08:59 05/17/16 09:49 0.4 MG Miscellaneous Information (Order Awaiting Action) 1 ea QS N/A 05/15/16 16:00 06/14/16 15:59 Morphine Sulfate If PO analgesic is orde... Q2H PRN IV 05/15/16 13:30 05/29/16 13:29 05/16/16 02:59 2 MG Amiodarone HCL/ Dextrose (Nexterone / D5w) 200 ml @ 16.7 mls/hr [id number] IV 05/16/16 14:45 05/17/16 12:30 05/17/16 02:24 16.7 MLS/HR Amiodarone HCl (Cordarone Tab) 200 mg TIDM PO 05/16/16 12:30 06/15/16 12:29 05/17/16 09:48 200 MG Metoprolol Tartrate (Lopressor Tab) 25 mg BID PO 05/16/16 21:00 06/15/16 20:59 05/17/16 09:48 25 MG Enoxaparin Sodium (Lovenox Inj) 40 mg DAILY SQ 05/18/16 09:00 06/17/16 08:59 Review of Systems Constitutional: No chills, No fever Eyes: No worsening of vision ENT: No hearing loss Respiratory: No cough Cardiovascular: No chest pain Abdomen: No nausea, No pain Musculoskeletal: No joint pain Genitourinary - Male: No hematuria Neurologic: No memory loss Psychiatric: No depression symptoms Endocrine: No fatigue Hematologic / Lymphatic: No abnormal bleeding/bruising Integumentary: No itch, No rash Physical Exam Date Time Temp Pulse Resp B/P Pulse Ox O2 Delivery O2 Flow Rate FiO2 05/17/16 11:36 36.6 59 18 105/58 100 05/17/16 11:02 36.4 58 20 114/52 100 05/17/16 10:00 36.3 67 20 125/60 100 Room Air 05/17/16 08:48 36.3 69 23 124/51 100 05/17/16 08:00 36.4 68 20 120/49 100 Room Air 05/17/16 08:00 100 Room Air 05/17/16 08:00 Room Air 05/17/16 06:00 35.6 65 16 118/48 98 Room Air 05/17/16 04:10 94 Room Air 05/17/16 04:00 67 14 102/44 94 Room Air 05/17/16 01:00 81 20 121/49 98 Room Air 05/17/16 00:30 97 Room Air 05/17/16 00:00 37.0 85 14 130/54 97 Room Air 05/16/16 22:00 86 16 142/58 99 05/16/16 21:00 86 14 155/80 100 Room Air 05/16/16 20:00 36.8 84 14 137/63 94 Room Air 05/16/16 19:45 98 Room Air 05/16/16 17:58 80 24 153/66 96 Room Air 05/16/16 16:58 84 17 158/67 05/16/16 16:00 Room Air 05/16/16 15:58 36.4 84 21 136/65 05/16/16 14:58 74 21 133/55 05/16/16 13:45 81 16 117/63 95 Room Air General Appearance: WD/WN, no apparent distress Head: normocephalic Eyes: normal inspection ENT: normal ENT inspection Neck: supple Respiratory/Chest: chest non-tender, lungs clear Cardiovascular: regular rate, rhythm, no edema Abdomen/GI: normal bowel sounds, non tender, soft Back: normal inspection Extremities/Musculoskelatal: normal inspection, no calf tenderness Neurologic/Psych: barrel straightener II-XII nml as tested, no motor/sensory deficits, alert, oriented x 3 Skin: normal color, warm/dry Lymphatic: no adenopathy Laboratory Results Last 24 Hours Test 05/16/16 12:32 05/17/16 00:40 05/17/16 07:45 05/17/16 11:25 Troponin I < 0.015 ng/ml Bedside Glucose 142 mg/dl 152 mg/dl Hemoglobin 7.4 g/dL Hematocrit 21.2 % Sodium Level 141 mmol/L Potassium Level 4.2 mmol/L Chloride Level 109 mmol/L Carbon Dioxide Level 20 mmol/L Anion Gap 12.0 mmol/L Blood Urea Nitrogen 42 mg/dl Creatinine 1.20 mg/dl Est Creatinine Clear Calc Drug Dose 35.9 ml/min Estimated GFR () 62.6 Estimated GFR (Non- 54.0 BUN/Creatinine Ratio 35.0 Random Glucose 123 mg/dl Calcium Level 8.0 mg/dl Phosphorus Level 3.3 mg/dl Albumin 2.3 gm/dl Assessment & Plan POD#2 s/p Abdominal Aortic Endovascular Repair - currently in ICU '- management per vascular surgery team - cont morphine and Percocet for pain control Anemia - unclear etiology - getting transfuse 1u pRBC today - check FOBT - check CBC in the am - CT abdomen showed no intra abdominal bleed H/o CVA - cont ASA and plavix HTN - cont to hold lisinopril anticipate re-starting in am - cont hydralazine IV prn BPH - cont flomax PPx - lovenox FULL CODE
[2016-05-17] MEDS ORDERED: NURSING VERBAL MED ORDER ONE (12:30)
--- NOTE | 2016-05-17 12:42 | Clinical Documentation Query ---
JAXON Adam : CLINICAL DOCUMENTATION QUERY Patient is an 85 year old male, POD #1 from PEVAR, unibody graft, and cross femoral bypass. Preoperative hemoglobin and hematocrit were 12.4 g/dl and 37.5%. POD #1, repeat values are 7.4 g/dl and 21.2%. Patient is being transfused 2 units of PRBC's. Net I/O is positive >5,500 ml's at this time. CT scan of the abdomen negative for intraabdominal bleed. In your clinical opinion is this patient being managed for: ( ) Acute blood loss and hemodilutional anemia ( ) Other explanation of clinical findings (Please Explain) ( ) Unable to determine (Please Define) ( ) Need to Discuss ( x ) Not Agree The medical record reflects the following clinical findings, treatment, and risk factors. Clinical Indicators: As above Treatment: Transfusion of PRBC's, serial hematology, I/O, CT abdomen Risk Factors: Acute perioperative blood losses and IVF administration Please clarify and document your clinical opinion in the progress notes and discharge summary. Terms such as "probable", "suspected", "likely", "questionable", "possible", or "still to be ruled out" are acceptable. IF IN AGREEMENT, YOU MUST DOCUMENT ABOVE DIAGNOSTIC STATEMENT IN DAILY PROGRESS NOTES AND DISCHARGE SUMMARY. This document is not part of the patient's record. Thank You, Wilman Najera, VELIA [phone]
--- NOTE | 2016-05-17 14:14 | Progress Note ---
Progress Note Date of Service: May 17, 2016. Subjective 85 yo m POD #2 after PEVAR with R-L fem fem bypass, seen in f/u today. Pt hgb 7.4 this am, decreased from 10 yesterday. Pt admits pain in BL groins and across fem-fem tunnel, as well as fatigue. Denies any other new complaints. Objective Vital Signs Vital Signs Past 12 Hours Date Time Temp Pulse Resp B/P Pulse Ox O2 Delivery O2 Flow Rate FiO2 05/17/16 12:00 100 Room Air 05/17/16 12:00 36.6 57 20 115/57 100 Room Air 05/17/16 11:36 36.6 59 18 105/58 100 05/17/16 11:02 36.4 58 20 114/52 100 05/17/16 10:00 36.3 67 20 125/60 100 Room Air 05/17/16 08:48 36.3 69 23 124/51 100 05/17/16 08:00 36.4 68 20 120/49 100 Room Air 05/17/16 08:00 100 Room Air 05/17/16 08:00 Room Air 05/17/16 06:00 35.6 65 16 118/48 98 Room Air 05/17/16 04:10 94 Room Air 05/17/16 04:00 67 14 102/44 94 Room Air Exam CONST: A&O x4, NAD, mildly chronically ill appearing male CHEST: RRR, lungs decreased, but ctab ABD: soft, + tenderness over pelvic area, no hematoma or pulsatile mass noted. EXT: BL groin incisions intact with pushpa, mild shadowing on dressing. + local tenderness. + dopplerable distal pulses. Intake & Output 8-Hour Column 05/16/16 05/16/16 05/17/16 15:59 23:59 07:59 Intake Total 1279 ml 725 ml 183 ml Output Total 275 ml 275 ml 200 ml Balance 1004 ml 450 ml -17 ml 24-Hour Column 05/17/16 07:59 Intake Total 2187 ml Output Total 750 ml Balance 1437 ml Laboratory and Microbiology Results Past 24 Hours Test 05/17/16 00:40 05/17/16 07:45 05/17/16 11:25 Range/Units Bedside Glucose 142 152 70-99 mg/dl Hemoglobin 7.4 14.0-18.0 g/dL Hematocrit 21.2 42-52 % Sodium Level 141 136-145 mmol/L Potassium Level 4.2 3.5-5.1 mmol/L Chloride Level 109 98-107 mmol/L Carbon Dioxide Level 20 21-32 mmol/L Anion Gap 12.0 3-11 mmol/L Blood Urea Nitrogen 42 7-18 mg/dl Creatinine 1.20 0.60-1.40 mg/dl Est Creatinine Clear Calc Drug Dose 35.9 ml/min Estimated GFR () 62.6 Estimated GFR (Non- 54.0 BUN/Creatinine Ratio 35.0 10-20 Random Glucose 123 70-99 mg/dl Calcium Level 8.0 8.5-10.1 mg/dl Phosphorus Level 3.3 2.5-4.9 mg/dl Albumin 2.3 3.4-5.0 gm/dl ASSESSMENT and PLAN: s/p PEVAR and R-L fem-fem BPG Post op anemia Post op anemia expected, however, CT ordered to eval for possible bleeding , which was negative. 2U PRBC. Continue I&O. Transfer to tele.
--- NOTE | 2016-05-17 14:26 | Critical Care Progress Note ---
Critical Care Progress Note Date of Service May 17, 2016. Attending Dr. 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 denies any N/T, chest pain, SOB, palpitations, lightheadedness, dizziness. complains of some pain at the surgical site Objective GENERAL: Patient is in no acute distress. HEENT: No acute trauma, normocephalic atraumatic, mucous membranes moist, no nasal congestion, no scleral icterus. NECK: No stridor, no adenopathy, no meningismus, trachea is midline. LUNGS: Clear to auscultation bilaterally, no wheeze, no rhonchi, breath sounds equal. HEART: Without murmurs gallops or rubs, regular rate and rhythm. ABDOMEN: Soft, some tenderness at surgical site EXTREMITIES: No cyanosis or edema, full range of motion of all the joints without pain or difficulty, no signs for acute trauma. NEUROLOGIC: Oriented x 3, no acute motor or sensory deficits, no focal weakness. SKIN: No rash, no jaundice, no diaphoresis. EK/2 Sinus tachycardia with Premature supraventricular complexes and with occasional Premature ventricular complexes Right bundle branch block Abnormal ECG When compared with ECG of 16-NOV-2015 14:22, Premature ventricular complexes are now Present Vent. rate has increased BY [address] now depressed in Anterior leads T wave inversion now evident in Anterior leads Assessment & Plan 85 y/o M s/p abdominal aortic aneurysm repair on 05/15, post op day 1. Was hypertensive last night , BP >171/81 and received 10 mg hydralazine. He was briefly in atrial fibrillation two nights ago and was started on amiodarone drip , last night was uneventful. Neuro: AAOX3 h/o stroke - aspirin and Plavix AAA s/p PEVAR repair; - Continue IVF - pain control with morphine and Percocet Heme: s/p PRBC transfusion 2 units - Hgb dropped to 7.4 from 10.2 - CT Abd: Evidence of aortobiiliac stent graft repair of abdominal aortic aneurysm. Evidence of a femorofemoral bypass graft. Suspected small bilateral femoral anastomotic hematomas - Received 2 units of PRBCS CVS: Atrial fibrillation with RVR : EKG :Sinus tachycardia with Premature supraventricular complexes and with occasional Premature ventricular complexes. Right bundle branch block - Dc amiodarone drip - Metoprolol 25 mg BID - Electrolytes WNL - TSH and free T4 WNL - Amiodarone PO 200 mg TID - Troponin negative - Very likely his A fib might be sec to stress of surgery but would benefit for evaluation for a PFO considering a h/o TIA HTN: - lisinopril 40 mg - hydralzine PRN Hyperlipidemia: Continue pravastatin : BPH; -continue tamsulosin GI/FEN: restart diet Protonix dc DVT : scds Lovenox sq Resident Physician Supervision Note: Dr. Garcia Forrester was resident physician during care of patient. I separately evaluated patient and did history and exam. I discussed the case with the resident and generally agree with the findings and plan. Patient received 2 units packed red blood cells from primary surgeon. Patient stable for downgraded from ICU status to telemetry status. Continue to monitor H&H every 6 hours times Documented By: Wilman Paulino DO Data Medications: Current Inpatient Medications Medications (Trade) Dose Ordered Sig/Art Route Start Time Stop Time Status Last Admin Dose Admin Morphine Sulfate (MoRPHine SULFATE INJ) If PO analgesic is orde... Q2H PRN IV 05/15/16 12:15 05/29/16 12:14 Oxycodone/ Acetaminophen (Percocet 5-325mg Tab) `1-2 TABS FOR MODER... Q4H PRN PO 05/15/16 12:15 05/29/16 12:14 05/16/16 20:31 2 TAB Ondansetron HCl (Zofran Inj) 4 mg Q6H PRN IV 05/15/16 12:15 06/14/16 12:14 Aspirin (Ecotrin Tab) 81 mg DAILY PO 05/16/16 09:00 06/15/16 08:59 05/17/16 09:48 81 MG Calcium/Vitamin D (Caltrate Plus Tab) 1 tab DAILY@1200 PO 05/16/16 12:00 06/15/16 11:59 05/17/16 11:45 1 TAB Cholecalciferol (Vitamin D Tab) 1,000 inter.unit BID PO 05/15/16 21:00 06/14/16 20:59 05/17/16 09:48 1,000 INTER.UNIT Clopidogrel Bisulfate (plAVix TAB) 75 mg QPM PO 05/15/16 21:00 06/14/16 20:59 05/16/16 20:29 75 MG Lisinopril (Zestril Tab) 40 mg DAILY PO 05/16/16 09:00 06/15/16 08:59 05/17/16 09:49 40 MG Pravastatin Sodium (Pravachol Tab) 20 mg QPM PO 05/15/16 21:00 06/14/16 20:59 05/16/16 20:29 20 MG Tamsulosin HCl (Flomax Cap) 0.4 mg DAILY PO 05/16/16 09:00 06/15/16 08:59 05/17/16 09:49 0.4 MG Miscellaneous Information (Order Awaiting Action) 1 ea QS N/A 05/15/16 16:00 06/14/16 15:59 Morphine Sulfate (MoRPHine SULFATE INJ) If PO analgesic is orde... Q2H PRN IV 05/15/16 13:30 05/29/16 13:29 05/16/16 02:59 2 MG Amiodarone HCl (Cordarone Tab) 200 mg TIDM PO 05/16/16 12:30 06/15/16 12:29 05/17/16 11:39 200 MG Metoprolol Tartrate (Lopressor Tab) 25 mg BID PO 05/16/16 21:00 06/15/16 20:59 05/17/16 09:48 25 MG Enoxaparin Sodium (Lovenox Inj) 40 mg DAILY SQ 05/18/16 09:00 06/17/16 08:59 I & O: 24-Hour Column 05/17/16 08:00 Intake Total 2187 ml Output Total 750 ml Balance 1437 ml Vital Signs: Date Time Temp Pulse Resp B/P Pulse Ox O2 Delivery O2 Flow Rate FiO2 05/17/16 12:00 100 Room Air 05/17/16 12:00 36.6 57 20 115/57 100 Room Air 05/17/16 11:36 36.6 59 18 105/58 100 05/17/16 11:02 36.4 58 20 114/52 100 05/17/16 10:00 36.3 67 20 125/60 100 Room Air 05/17/16 08:48 36.3 69 23 124/51 100 05/17/16 08:00 36.4 68 20 120/49 100 Room Air 05/17/16 08:00 100 Room Air 05/17/16 08:00 Room Air 05/17/16 06:00 35.6 65 16 118/48 98 Room Air 05/17/16 04:10 94 Room Air 05/17/16 04:00 67 14 102/44 94 Room Air 05/17/16 01:00 81 20 121/49 98 Room Air 05/17/16 00:30 97 Room Air 05/17/16 00:00 37.0 85 14 130/54 97 Room Air 05/16/16 22:00 86 16 142/58 99 05/16/16 21:00 86 14 155/80 100 Room Air 05/16/16 20:00 36.8 84 14 137/63 94 Room Air 05/16/16 19:45 98 Room Air 05/16/16 17:58 80 24 153/66 96 Room Air 05/16/16 16:58 84 17 158/67 05/16/16 16:00 Room Air 05/16/16 15:58 36.4 84 21 136/65 05/16/16 14:58 74 21 133/55 Laboratory Results: Last 24 Hours Test 05/17/16 00:40 05/17/16 07:45 05/17/16 11:25 Bedside Glucose 142 mg/dl 152 mg/dl Hemoglobin 7.4 g/dL Hematocrit 21.2 % Sodium Level 141 mmol/L Potassium Level 4.2 mmol/L Chloride Level 109 mmol/L Carbon Dioxide Level 20 mmol/L Anion Gap 12.0 mmol/L Blood Urea Nitrogen 42 mg/dl Creatinine 1.20 mg/dl Est Creatinine Clear Calc Drug Dose 35.9 ml/min Estimated GFR () 62.6 Estimated GFR (Non- 54.0 BUN/Creatinine Ratio 35.0 Random Glucose 123 mg/dl Calcium Level 8.0 mg/dl Phosphorus Level 3.3 mg/dl Albumin 2.3 gm/dl
[2016-05-17 19:04] LABS: HEMATOCRIT 29.2 % (42-52)
[2016-05-17] MEDS: PRAVASTATIN SOD 20 MG TAB PO SCH (20:08)
[2016-05-17] MEDS: CLOPIDOGREL BISULFATE 75 MG TAB PO SCH (20:09)
[2016-05-18] VITALS (10 sets, daily range): BP systolic 114–135; BP diastolic 56–66; PULSE 61–78; TEMP 36.4–37.3; O2SAT 94–100
[2016-05-18] MEDS: OXYCODONE/ACETAMINOPHEN 5-325 TAB PO PRN (04:56)
[2016-05-18] MEDS ORDERED: CIPROFLOXACIN 250 MG TAB PO SCH (07:45)
[2016-05-18] MEDS ORDERED: CIPROFLOXACIN CONSULT ACTIVE PRN ×2 (08:00)
[2016-05-18] MEDS ORDERED: METRONIDAZOLE 500 MG TAB PO SCH ×2 (09:00)
[2016-05-18] MEDS: METRONIDAZOLE / NSS 500 MG in PREMIXED NSS 100 ML IV SCH ×2 (09:03→16:58)
[2016-05-18 09:06] LABS: HEMATOCRIT 27.7 % (42-52); MEAN CELL VOLUME 90.2 fL (80-100); MEAN CORPUSCULAR HEMOGLOBIN 31.3 pg (25-34); MEAN CORPUSCULAR HGB CONC 34.7 g/dl (32-36); MEAN PLATELET VOLUME 11.3 fL (7.4-10.4); PLATELET COUNT 58 K/uL (130-400); RED BLOOD COUNT 3.07 M/uL (4.7-6.1); WHITE BLOOD COUNT 12.31 K/uL (4.8-10.8)
[2016-05-18 09:10] LABS: BASO % 0.1 %; BASO ABS # 0.01 K/uL (0-0.2); COMPLETE YES; DOHLE BODIES 1+; EOS % 0.1 %; IG% 0.1 %; LARGE PLATELETS 1+; LYMPH % 72.9 %; LYMPH ABS # 8.97 K/uL (1.2-3.4); MONO % 2.4 %; NEUT % 24.4 %; PLT ESTIMATE DECREASED
[2016-05-18] MEDS: ASPIRIN 81 MG ECTAB PO SCH (09:22)
[2016-05-18] MEDS: TAMSULOSIN HCL 0.4 MG CAP PO SCH (09:22)
[2016-05-18] MEDS: AMIODARONE 200 MG TAB PO SCH ×3 (09:22→16:57)
[2016-05-18] MEDS: LISINOPRIL 40 MG TAB PO SCH (09:22)
[2016-05-18] MEDS: METOPROLOL TARTRATE 25 MG TAB PO SCH ×2 (09:22→22:10)
[2016-05-18] MEDS: ENOXAPARIN 40 MG/0.4 ML SYR SQ SCH (09:23)
[2016-05-18] MEDS: CHOLECALCIFEROL 1000 INTER.UNIT TAB PO SCH ×2 (09:23→22:10)
[2016-05-18] MEDS: CIPROFLOXACIN / D5W 400 MG in PREMIXED IN D5W 200 ML IV SCH ×2 (10:00→22:10)
--- NOTE | 2016-05-18 10:06 | Progress Note ---
Progress Note Date of Service: May 18, 2016. Subjective Had small amount of diarrhea today. No other complaints Objective Vital Signs Vital Signs Past 12 Hours Date Time Temp Pulse Resp B/P Pulse Ox O2 Delivery O2 Flow Rate FiO2 05/18/16 07:31 36.7 69 22 129/56 97 Room Air 05/18/16 04:11 36.6 73 21 130/66 94 Room Air 05/18/16 04:00 94 Room Air 05/18/16 00:00 95 Room Air 05/17/16 23:31 36.6 65 22 123/58 95 Room Air Exam VSS Afebrile Incisions dry and clean Good urine output Good distal flow Intake & Output 8-Hour Column 05/17/16 05/17/16 05/18/16 15:59 23:59 07:59 Intake Total 1040 ml 120 ml Output Total 300 ml 250 ml 250 ml Balance 740 ml -250 ml -130 ml 24-Hour Column 05/18/16 07:59 Intake Total 1160 ml Output Total 800 ml Balance 360 ml Laboratory and Microbiology Results Past 24 Hours Test 05/17/16 11:25 05/17/16 16:28 05/17/16 18:40 05/18/16 06:26 Range/Units Bedside Glucose 152 114 123 70-99 mg/dl Hemoglobin 10.3 14.0-18.0 g/dL Hematocrit 29.2 42-52 % Test 05/18/16 07:06 Range/Units White Blood Count 12.31 4.8-10.8 K/uL Red Blood Count 3.07 4.7-6.1 M/uL Hemoglobin 9.6 14.0-18.0 g/dL Hematocrit 27.7 42-52 % Mean Corpuscular Volume 90.2 80-100 fL Mean Corpuscular Hemoglobin 31.3 25-34 pg Mean Corpuscular Hemoglobin Concent 34.7 32-36 g/dl Platelet Count 58 130-400 K/uL Mean Platelet Volume 11.3 7.4-10.4 fL Neutrophils (%) (Auto) 24.4 % Lymphocytes (%) (Auto) 72.9 % Monocytes (%) (Auto) 2.4 % Eosinophils (%) (Auto) 0.1 % Basophils (%) (Auto) 0.1 % Neutrophils # (Auto) 3.02 1.4-6.5 K/uL Lymphocytes # (Auto) 8.97 1.2-3.4 K/uL Monocytes # (Auto) 0.29 0.11-0.59 K/uL Eosinophils # (Auto) 0.01 0-0.5 K/uL Basophils # (Auto) 0.01 0-0.2 K/uL RDW Standard Deviation 59.2 36.4-46.3 fL RDW Coefficient of Variation 18.1 11.5-14.5 % Immature Granulocyte % (Auto) 0.1 % Immature Granulocyte # (Auto) 0.01 0.00-0.02 K/uL Dohle Bodies 1+ Platelet Estimate DECREASED Large Platelets 1+ Imp: Post PEVAR with cross femoral bypass Plan: Hgb stable. Had blood loss anemia from surgery Will leave bowen in for now due to history of prostate problem and difficulty placing catheter Continue PT/OT Rest of management as per medicine.
[2016-05-18] MEDS: CALCIUM 600MG + VIT D 400 IU TAB PO SCH (11:39)
--- NOTE | 2016-05-18 13:07 | Hospitalist Progress Note ---
Hospitalist Progress Note Date of Service May 18, 2016. Subjective Pt evaluation today including: conversation w/ patient, physical exam, chart review, lab review, review of studies, review of inpatient medication list Patient had diarrhea overnight Denies any SOB, dizziness, BRBPR Constitutional: No fever Eyes: No worsening of vision ENT: No hearing loss Respiratory: No cough, No shortness of breath Cardiovascular: No chest pain, No edema Abdomen: No constipation, No diarrhea, No pain, No vomiting Musculoskeletal: No joint pain Male : No dysuria Neurologic: No memory loss Psychiatric: No depression symptoms Heme: No abnormal bleeding/bruising Skin: No rash Medications Current Inpatient Medications Medications (Trade) Dose Ordered Sig/Art Route Start Time Stop Time Status Last Admin Dose Admin Morphine Sulfate (MoRPHine SULFATE INJ) If PO analgesic is orde... Q2H PRN IV 05/15/16 12:15 05/29/16 12:14 Oxycodone/ Acetaminophen (Percocet 5-325mg Tab) `1-2 TABS FOR MODER... Q4H PRN PO 05/15/16 12:15 05/29/16 12:14 05/18/16 04:56 2 TAB Ondansetron HCl (Zofran Inj) 4 mg Q6H PRN IV 05/15/16 12:15 06/14/16 12:14 Aspirin (Ecotrin Tab) 81 mg DAILY PO 05/16/16 09:00 06/15/16 08:59 05/18/16 09:22 81 MG Calcium/Vitamin D (Caltrate Plus Tab) 1 tab DAILY@1200 PO 05/16/16 12:00 06/15/16 11:59 05/18/16 11:39 1 TAB Cholecalciferol (Vitamin D Tab) 1,000 inter.unit BID PO 05/15/16 21:00 06/14/16 20:59 05/18/16 09:23 1,000 INTER.UNIT Clopidogrel Bisulfate (plAVix TAB) 75 mg QPM PO 05/15/16 21:00 06/14/16 20:59 05/17/16 20:09 75 MG Lisinopril (Zestril Tab) 40 mg DAILY PO 05/16/16 09:00 06/15/16 08:59 05/18/16 09:22 40 MG Pravastatin Sodium (Pravachol Tab) 20 mg QPM PO 05/15/16 21:00 06/14/16 20:59 05/17/16 20:08 20 MG Tamsulosin HCl (Flomax Cap) 0.4 mg DAILY PO 05/16/16 09:00 06/15/16 08:59 05/18/16 09:22 0.4 MG Miscellaneous Information (Order Awaiting Action) 1 ea QS N/A 05/15/16 16:00 06/14/16 15:59 Morphine Sulfate (MoRPHine SULFATE INJ) If PO analgesic is orde... Q2H PRN IV 05/15/16 13:30 05/29/16 13:29 05/16/16 02:59 2 MG Amiodarone HCl (Cordarone Tab) 200 mg TIDM PO 05/16/16 12:30 06/15/16 12:29 05/18/16 11:39 200 MG Metoprolol Tartrate (Lopressor Tab) 25 mg BID PO 05/16/16 21:00 06/15/16 20:59 05/18/16 09:22 25 MG Enoxaparin Sodium (Lovenox Inj) 40 mg DAILY SQ 05/18/16 09:00 06/17/16 08:59 05/18/16 09:23 40 MG Ciprofloxacin 1 ea 1 ea UD PRN N/A 05/18/16 08:00 06/17/16 07:59 Ciprofloxacin/ Dextrose 400 mg/ Prmx 200 ml @ 100 mls/hr Q12H IV 05/18/16 09:00 05/28/16 08:59 05/18/16 10:00 100 MLS/HR Metronidazole/Prmx (Flagyl / Nss/ Premixed Nss) 100 ml @ 100 mls/hr Q8H IV 05/18/16 08:00 05/28/16 07:59 05/18/16 09:03 100 MLS/HR Objective Vital Signs Date Time Temp Pulse Resp B/P Pulse Ox O2 Delivery O2 Flow Rate FiO2 05/18/16 07:31 36.7 69 22 129/56 97 Room Air 05/18/16 04:11 36.6 73 21 130/66 94 Room Air 05/18/16 04:00 94 Room Air 05/18/16 00:00 95 Room Air 05/17/16 23:31 36.6 65 22 123/58 95 Room Air 05/17/16 21:00 95 Room Air 05/17/16 21:00 36.8 64 26 130/63 95 Room Air 05/17/16 20:00 36.6 66 16 140/72 100 Room Air 05/17/16 20:00 Room Air 05/17/16 16:00 99 Room Air 05/17/16 16:00 36.5 63 135/56 100 Room Air 05/17/16 14:00 36.6 64 18 134/70 100 Physical Exam General Appearance: WD/WN, no apparent distress Eyes: normal inspection ENT: normal ENT inspection, hearing grossly normal Neck: supple, no adenopathy Respiratory/Chest: chest non-tender Cardiovascular: regular rate, rhythm, no edema Abdomen: normal bowel sounds, non tender, soft Extremities: normal range of motion 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1 % Basophils (%) (Auto) 0.1 % Neutrophils # (Auto) 3.02 K/uL Lymphocytes # (Auto) 8.97 K/uL Monocytes # (Auto) 0.29 K/uL Eosinophils # (Auto) 0.01 K/uL Basophils # (Auto) 0.01 K/uL RDW Standard Deviation 59.2 fL RDW Coefficient of Variation 18.1 % Immature Granulocyte % (Auto) 0.1 % Immature Granulocyte # (Auto) 0.01 K/uL Dohle Bodies 1+ Platelet Estimate DECREASED Large Platelets 1+ Assessment and Plan POD#3 s/p Abdominal Aortic Endovascular Repair '- management per vascular surgery team - cont morphine and Percocet for pain control Sigmoid Diverticulitis - start Flagyl and ciprofloxacin Day #2 Anemia - unclear etiology - transfused on 1u pRBC 2.3.17 - CBC in the am - CT abdomen showed no intra abdominal bleed Meseteric Lymphadenopathy - consult oncology regarding findings H/o CVA - cont ASA and plavix HTN - cont to hold lisinopril - cont hydralazine IV prn BPH - cont flomax PPx - lovenox FULL CODE
[2016-05-18] MEDS: PRAVASTATIN SOD 20 MG TAB PO SCH (22:10)
[2016-05-18] MEDS: CLOPIDOGREL BISULFATE 75 MG TAB PO SCH (22:10)
[2016-05-19] VITALS (9 sets, daily range): BP systolic 121–154; BP diastolic 56–75; PULSE 65–93; TEMP 36.4–37.1; O2SAT 94–97
[2016-05-19 05:39] LABS: HEMATOCRIT 27.3 % (42-52); MEAN CELL VOLUME 93.5 fL (80-100); MEAN CORPUSCULAR HEMOGLOBIN 32.5 pg (25-34); MEAN CORPUSCULAR HGB CONC 34.8 g/dl (32-36); RED BLOOD COUNT 2.92 M/uL (4.7-6.1); WHITE BLOOD COUNT 10.66 K/uL (4.8-10.8)
[2016-05-19 05:50] LABS: MEAN PLATELET VOLUME 11.7 fL (7.4-10.4); PLATELET COUNT 75 K/uL (130-400)
[2016-05-19 06:32] LABS: BASO % 0.1 %; BASO ABS # 0.01 K/uL (0-0.2); COMPLETE YES; DOHLE BODIES 1+; EOS % 0.6 %; IG% 0.3 %; LYMPH % 68.6 %; LYMPH ABS # 7.31 K/uL (1.2-3.4); MONO % 4.6 %; NEUT % 25.8 %; SMUDGE CELLS PRESENT; TOXIC GRANULATION 1+
[2016-05-19] MEDS: METRONIDAZOLE / NSS 500 MG in PREMIXED NSS 100 ML IV SCH ×3 (08:22→15:48)
[2016-05-19] MEDS: AMIODARONE 200 MG TAB PO SCH ×3 (08:24→17:43)
[2016-05-19] MEDS: ASPIRIN 81 MG ECTAB PO SCH (08:25)
[2016-05-19] MEDS: METOPROLOL TARTRATE 25 MG TAB PO SCH ×2 (08:25→21:59)
[2016-05-19] MEDS: TAMSULOSIN HCL 0.4 MG CAP PO SCH (08:25)
[2016-05-19] MEDS: ENOXAPARIN 40 MG/0.4 ML SYR SQ SCH (08:26)
[2016-05-19] MEDS: CHOLECALCIFEROL 1000 INTER.UNIT TAB PO SCH ×2 (08:26→21:59)
[2016-05-19] MEDS: LISINOPRIL 40 MG TAB PO SCH (08:26)
[2016-05-19] MEDS: CIPROFLOXACIN / D5W 400 MG in PREMIXED IN D5W 200 ML IV SCH ×2 (09:46→21:59)
--- NOTE | 2016-05-19 10:00 | Progress Note ---
Progress Note Date of Service: May 19, 2016. Subjective Still has complaints of diarrhea. Does have incisional and tunnel discomfort Objective Vital Signs Vital Signs Past 12 Hours Date Time Temp Pulse Resp B/P Pulse Ox O2 Delivery O2 Flow Rate FiO2 05/19/16 08:00 95 Room Air 05/19/16 07:16 36.6 80 16 148/62 95 05/19/16 04:10 36.6 77 16 154/66 94 Room Air 05/19/16 04:10 Room Air 05/19/16 00:02 Room Air 05/18/16 23:55 37.3 70 20 135/66 94 Room Air Exam VSS Afebrile Incisions dry and clean. Good distal flow Good urine output. Intake & Output 8-Hour Column 05/18/16 05/18/16 05/19/16 15:59 23:59 07:59 Intake Total 711 ml 575 ml Output Total 200 ml 200 ml 400 ml Balance 511 ml -200 ml 175 ml 24-Hour Column 05/19/16 07:59 Intake Total 1286 ml Output Total 800 ml Balance 486 ml Laboratory and Microbiology Results Past 24 Hours Test 05/19/16 05:15 Range/Units White Blood Count 10.66 4.8-10.8 K/uL Red Blood Count 2.92 4.7-6.1 M/uL Hemoglobin 9.5 14.0-18.0 g/dL Hematocrit 27.3 42-52 % Mean Corpuscular Volume 93.5 80-100 fL Mean Corpuscular Hemoglobin 32.5 25-34 pg Mean Corpuscular Hemoglobin Concent 34.8 32-36 g/dl Platelet Count 75 130-400 K/uL Mean Platelet Volume 11.7 7.4-10.4 fL Neutrophils (%) (Auto) 25.8 % Lymphocytes (%) (Auto) 68.6 % Monocytes (%) (Auto) 4.6 % Eosinophils (%) (Auto) 0.6 % Basophils (%) (Auto) 0.1 % Neutrophils # (Auto) 2.76 1.4-6.5 K/uL Lymphocytes # (Auto) 7.31 1.2-3.4 K/uL Monocytes # (Auto) 0.49 0.11-0.59 K/uL Eosinophils # (Auto) 0.06 0-0.5 K/uL Basophils # (Auto) 0.01 0-0.2 K/uL RDW Standard Deviation 59.8 36.4-46.3 fL RDW Coefficient of Variation 17.9 11.5-14.5 % Immature Granulocyte % (Auto) 0.3 % Immature Granulocyte # (Auto) 0.03 0.00-0.02 K/uL Smudge Cells PRESENT Toxic Granulation 1+ Dohle Bodies 1+ Creatinine 1.00 0.60-1.40 mg/dl Est Creatinine Clear Calc Drug Dose 43.7 ml/min Estimated GFR () 78.1 Estimated GFR (Non- 67.4 Imp: Post PEVAR Diverticulitis on CT scan Plan: Continue present treatment Discussed rehab upon d/c Await heme input
[2016-05-19] MEDS: CALCIUM 600MG + VIT D 400 IU TAB PO SCH (12:38)
--- NOTE | 2016-05-19 14:48 | Hospitalist Progress Note ---
Hospitalist Progress Note Date of Service May 19, 2016. Subjective Pt evaluation today including: conversation w/ patient, physical exam, chart review, lab review, review of studies, review of inpatient medication list Patient had no acute issues overnight Continued diarrhea however states it has improved Denies any fever, chest pain, or SOB Constitutional: No fever Eyes: No worsening of vision ENT: No hearing loss Respiratory: No cough, No shortness of breath Cardiovascular: No chest pain, No edema Abdomen: + diarrhea, No constipation, No nausea, No pain, No vomiting Musculoskeletal: No joint pain Male : No dysuria Neurologic: No memory loss Psychiatric: No depression symptoms Heme: No abnormal bleeding/bruising Objective Vital Signs Date Time Temp Pulse Resp B/P Pulse Ox O2 Delivery O2 Flow Rate FiO2 05/19/16 12:00 97 Room Air 05/19/16 11:27 36.6 65 18 145/56 97 Room Air 05/19/16 08:00 95 Room Air 05/19/16 07:16 36.6 80 16 148/62 95 05/19/16 04:10 36.6 77 16 154/66 94 Room Air 05/19/16 04:10 Room Air 05/19/16 00:02 Room Air 05/18/16 23:55 37.3 70 20 135/66 94 Room Air 05/18/16 20:00 Room Air 05/18/16 19:34 36.6 78 16 131/63 96 Room Air 05/18/16 16:00 96 Room Air 05/18/16 15:16 36.4 67 16 114/60 98 Room Air Physical Exam General Appearance: WD/WN Eyes: normal inspection ENT: normal ENT inspection Neck: supple, no adenopathy Respiratory/Chest: chest non-tender, lungs clear Cardiovascular: regular rate, rhythm, no edema Abdomen: normal bowel sounds, non tender, soft Extremities: normal range of motion, non-tender 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, no motor/sensory deficits, alert, oriented x 3 Skin: normal color, warm/dry Lymphatic: no adenopathy Laboratory Results Last 24 Hours Test 05/19/16 05:15 White Blood Count 10.66 K/uL Red Blood Count 2.92 M/uL Hemoglobin 9.5 g/dL Hematocrit 27.3 % Mean Corpuscular Volume 93.5 fL Mean Corpuscular Hemoglobin 32.5 pg Mean Corpuscular Hemoglobin Concent 34.8 g/dl Platelet Count 75 K/uL Mean Platelet Volume 11.7 fL Neutrophils (%) (Auto) 25.8 % Lymphocytes (%) (Auto) 68.6 % Monocytes (%) (Auto) 4.6 % Eosinophils (%) (Auto) 0.6 % Basophils (%) (Auto) 0.1 % Neutrophils # (Auto) 2.76 K/uL Lymphocytes # (Auto) 7.31 K/uL Monocytes # (Auto) 0.49 K/uL Eosinophils # (Auto) 0.06 K/uL Basophils # (Auto) 0.01 K/uL RDW Standard Deviation 59.8 fL RDW Coefficient of Variation 17.9 % Immature Granulocyte % (Auto) 0.3 % Immature Granulocyte # (Auto) 0.03 K/uL Smudge Cells PRESENT Toxic Granulation 1+ Dohle Bodies 1+ Creatinine 1.00 mg/dl Est Creatinine Clear Calc Drug Dose 43.7 ml/min Estimated GFR () 78.1 Estimated GFR (Non- 67.4 Assessment and Plan POD#4 s/p Abdominal Aortic Endovascular Repair '- management per vascular surgery team - cont morphine and Percocet for pain control Sigmoid Diverticulitis - cont Flagyl and ciprofloxacin Day #2 Anemia - unclear etiology - transfused on 1u pRBC 2.3.17 - CBC in the am - CT abdomen showed no intra abdominal bleed Meseteric Lymphadenopathy - consult oncology regarding findings H/o CVA - cont ASA and plavix HTN - cont to hold lisinopril - cont hydralazine IV prn BPH - cont flomax PPx - lovenox FULL CODE Disposition- PT states patient may need a SNF. Patient has agreed if needed. CM is not aware
--- NOTE | 2016-05-19 14:54 | ONCOLOGY CONSULTATION ---
DATE OF CONSULTATION: 05/19/2016 REASON FOR CONSULTATION: Lymphadenopathy. HISTORY OF PRESENT ILLNESS: Mode Holcomb is a very pleasant 85-year-old gentleman who was admitted to [facility] on 05/15/2016 for subacute onset of abdominal pain. The patient, who is not the best informants, tells me that he began to experience abdominal pain several weeks ago, specifically after undergoing back surgery by Dr. Saldana a couple of months prior. He was admitted by Dr. 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 He underwent percutaneous endovascular aneurysm repair on 05/15/2016. Postoperatively, he underwent CT scan of the abdomen and pelvis with contrast, which revealed the operative repair in addition retroperitoneal and mesenteric lymphadenopathy. He is also currently suffering from diverticulitis and started appropriate antimicrobials. I inquired about his pre-admitting symptoms. He denies any fevers, chills or night sweats. Appetite and weight have remained stable. He also imparts interaction with Dr. Moreland, veneer patcher/oncologist in [place] because of "looking for cancer." Mr. Holcomb denies established diagnosis, however, after review of his current clinical documentation, specifically lab results and radiographic reports. Mr. Holcomb suffers from anemia and mild thrombocytopenia. Primary service is requesting evaluation and management of the described lymphadenopathy. PAST MEDICAL HISTORY: Significant for benign prostatic hypertrophy, chronic anemia, history of CVA, hypertension and status post abdominal aortic endovascular repair. CURRENT MEDICATIONS: Lovenox 40 mg subQ q. daily, ciprofloxacin 400 mg p.o. b.i.d., and metronidazole 500 mg IV q. 8 hours. I think the ciprofloxacin is IV as well. Metoprolol 25 mg p.o. b.i.d., amiodarone 200 mg p.o. q. daily, aspirin 81 mg p.o. q. daily, lisinopril 40 mg p.o. q. daily, tamsulosin 0.4 mg p.o. q. daily, cholecalciferol 1000 units p.o. q. daily, clopidogrel 75 mg p.o. q. daily, and pravastatin 20 mg p.o. q. daily. P.r.n. include morphine sulfate, oxycodone and Zofran. ALLERGIES: CHLORPHENTERMINE, PHENYLPROPANOLAMINE, PSEUDOEPHEDRINE, TERFENADINE AND TICLOPIDINE. SOCIAL HISTORY: Retired and lives with his . Nonsmoker and nondrinker. FAMILY HISTORY: Noncontributory. REVIEW OF SYSTEMS: GENERAL: Negative for fevers, chills, night sweats, loss of appetite or weight loss. SKIN: Chronic seborrheic keratoses. Otherwise, no current rash or lesions. HEENT: Negative for headaches, lightheadedness or dizziness. No visual or hearing deficits. No sinus symptoms, sore throat or dysphagia. LYMPHATICS: No history of lymphoproliferative disorder. Incidentally discovered retroperitoneal or mesenteric lymph nodes. CARDIAC: No history of coronary artery disease. No angina or palpitations. PULMONARY: Negative for COPD. No shortness of breath, dyspnea or orthopnea. No cough or hemoptysis. GASTROINTESTINAL: Positive for abdominal pain leading up to aneurysm diagnosis. No history of diarrhea or constipation, hematochezia or melena. GENITOURINARY: Suffers from BPH. No current hematuria or dysuria. PSYCHIATRIC: No history of anxiety, depression or psychoses. ENDOCRINE: Negative for diabetes or thyroid disease. NEUROLOGIC: Positive history of stroke. Otherwise, no history of migraine headaches or seizure disorder. HEMATOLOGIC: Positive for anemia and thrombocytopenia. PHYSICAL EXAMINATION: GENERAL: A very pleasant 85-year-old gentleman awake, alert, conversant and appropriate, in no acute distress. VITAL SIGNS: Temperature 36.6, pulse 65, respirations 18, and blood pressure 145/56. SKIN: Again multiple seborrheic keratoses encompassing his back and trunk. HEENT: Head atraumatic and normocephalic. EYES: PERRLA, EOMI. Sclerae nonicteric. Nares patent. Throat clear. Tongue midline. NECK: Supple without JVD or thyromegaly. LYMPHATICS: No cervical, supraclavicular, or axillary palpable nodes. HEART: Regular rate and rhythm. No clicks, rubs, murmurs, or gallops. LUNGS: Diminished breath sounds in the posterior bases. ABDOMEN: Postoperative tenderness, but otherwise no rigidity or guarding. Bowel sounds are hypoactive. EXTREMITIES: Pulses and musculoskeletal strength equal. No clubbing, cyanosis or edema. NEUROLOGICALLY: He is awake, alert and oriented x3. Cranial nerves II-XII are intact. No gross motor or sensory deficits noted. LABORATORY DATA: WBC count 10,660, hemoglobin 9.5, and platelet count 75,000. Creatinine 1. RADIOGRAPHIC DATA: As per HPI. Numerous mesenteric and retroperitoneal lymph nodes without specific measurement. Positive for diverticular disease. Aneurysm repair noted as well. IMPRESSION: 1. Status post abdominal aortic aneurysm repair. 2. Mesenteric and retroperitoneal lymphadenopathy, etiology unclear. 3. Benign prostatic hypertrophy. 4. Normocytic normochromic anemia. 5. Thrombocytopenia. PLAN: I engaged in a lengthy discussion with Mr. Holcomb leading up to his admission to [facility]. Apparently, he had been suffering from nonspecific abdominal pain for several days leading up to diagnosis. He underwent aneurysm repair by Dr. Morales back on May 15. He continues to have some point tenderness over the operative site, but otherwise feels well. He denies B symptoms at this time. The description of adenopathy on CT scan is somewhat vague. It is conceivable that these may represent a reactive process. Mode reports no preceding B symptoms; however, that does not rule out a lymphoproliferative process. It might be helpful to obtain medical records from the Oncologist in [place]. Nonetheless, at this point I am in favor of observation and further serial imaging. Alternatively, consult general surgery for laparoscopy and harvesting of lymph node for diagnosis. Mr. Holcomb has agreed to continued observation. As for his hematologic issues, I believe these are probably residual from his surgery and can be followed. I would be more than happy to see Mr. Holcomb as outpatient within the next couple of weeks. I agree with current medical management. I have nothing further to add at this juncture. Thank you very much for allowing me to participate in the care of this very pleasant gentleman. If you have any questions or concerns, feel free to call me at any time. BRANDON
[2016-05-19] MEDS: PRAVASTATIN SOD 20 MG TAB PO SCH (21:59)
[2016-05-19] MEDS: CLOPIDOGREL BISULFATE 75 MG TAB PO SCH (21:59)
[2016-05-20] VITALS (9 sets, daily range): BP systolic 132–153; BP diastolic 62–73; PULSE 64–72; TEMP 36.4–36.7; O2SAT 94–97
[2016-05-20] MEDS: METRONIDAZOLE / NSS 500 MG in PREMIXED NSS 100 ML IV SCH ×2 (00:11→08:58)
[2016-05-20 05:43] LABS: HEMATOCRIT 26.9 % (42-52); MEAN CELL VOLUME 94.4 fL (80-100); MEAN CORPUSCULAR HEMOGLOBIN 32.3 pg (25-34); MEAN CORPUSCULAR HGB CONC 34.2 g/dl (32-36); RED BLOOD COUNT 2.85 M/uL (4.7-6.1); WHITE BLOOD COUNT 10.49 K/uL (4.8-10.8)
[2016-05-20 06:11] LABS: CALCIUM 7.8 mg/dl (8.5-10.1); POTASSIUM 3.6 mmol/L (3.5-5.1)
[2016-05-20 06:17] LABS: MEAN PLATELET VOLUME 11.2 fL (7.4-10.4); PLATELET COUNT 95 K/uL (130-400)
[2016-05-20] MEDS: CHOLECALCIFEROL 1000 INTER.UNIT TAB PO SCH ×2 (08:58→21:54)
[2016-05-20] MEDS: LISINOPRIL 40 MG TAB PO SCH (08:58)
[2016-05-20] MEDS: AMIODARONE 200 MG TAB PO SCH ×3 (08:58→18:09)
[2016-05-20] MEDS: METOPROLOL TARTRATE 25 MG TAB PO SCH ×2 (08:58→21:52)
[2016-05-20] MEDS: ENOXAPARIN 40 MG/0.4 ML SYR SQ SCH (08:59)
[2016-05-20] MEDS: ASPIRIN 81 MG ECTAB PO SCH (08:59)
[2016-05-20] MEDS: TAMSULOSIN HCL 0.4 MG CAP PO SCH (08:59)
--- NOTE | 2016-05-20 09:23 | Hematology/Oncology Prog Note ---
Hematology/Onc Progress Note Date of Service May 20, 2016. Diagnoses Retroperitoneal adenopathy Mild thrombocytopenia Anemia Medications Medications Administered Medications (Trade) Dose Ordered Sig/Art Route Start Time Stop Time Status Last Admin Dose Admin Sodium Chloride (Nss 1000ml) 1,000 ml @ 100 mls/hr Q10H IV 05/15/16 06:00 05/15/16 15:59 DC 05/15/16 07:29 100 MLS/HR Hydrocortisone Sodium Succinate (Solu-Cortef IV) 100 mg STK-MED ONCE .ROUTE 05/15/16 07:17 05/15/16 07:18 DC 05/15/16 07:45 100 MG Iodixanol (Visipaque 150ml) 20,400 mg ONE ONCE FLUSH 05/15/16 11:13 05/15/16 11:15 DC 05/15/16 11:13 20,400 MG Heparin Sodium/ Sodium Chloride (Heparin Sod/Ns 2 Units/Ml) 100 unit ONE ONCE IV 05/15/16 11:13 05/15/16 11:15 DC 05/15/16 11:13 100 UNIT Bupivacaine HCl/ Epinephrine Bitart (Sensorcaine/ Epinephrine 0.5% Mpf 1:200,000) 11 ml ONE ONCE INFIL 05/15/16 11:13 05/15/16 11:15 DC 05/15/16 11:13 11 ML Gelatin (Gelfoam Size 100) 1 ea ONE ONCE TOP 05/15/16 12:05 05/15/16 12:06 DC 05/15/16 12:05 1 EA Thrombin (Thrombin 20,000 Units (Recombinant)) 20,000 units ONE ONCE TOP 05/15/16 12:07 05/15/16 12:08 DC 05/15/16 12:07 20,000 UNITS Bacitracin (Bacitracin 50,000 Units) 50,000 units ONE ONCE IR 05/15/16 12:07 05/15/16 12:08 DC 05/15/16 12:07 50,000 UNITS Oxycodone/ Acetaminophen `1-2 TABS FOR MODER... Q4H PRN PO 05/15/16 12:15 05/29/16 12:14 05/18/16 04:56 2 TAB Cefazolin Sodium/ Dextrose (Ancef Iv/D5 50ml) 55 ml @ 100 mls/hr Q8H IV 05/15/16 16:00 05/16/16 00:32 DC 05/15/16 23:45 100 MLS/HR Enoxaparin Sodium 30 mg 30 mg Q12H SQ 05/16/16 08:00 05/16/16 08:59 DC 05/16/16 07:33 30 MG Dextrose/Sodium Chloride (D5W And 1/2nss) 1,000 ml @ 100 mls/hr Q10H IV 05/15/16 14:15 05/16/16 10:02 DC 05/16/16 07:31 100 MLS/HR Aspirin (Ecotrin Tab) 81 mg DAILY PO 05/16/16 09:00 06/15/16 08:59 05/20/16 08:59 81 MG Calcium/Vitamin D (Caltrate Plus Tab) 1 tab DAILY@1200 PO 05/16/16 12:00 06/15/16 11:59 05/19/16 12:38 1 TAB Cholecalciferol (Vitamin D Tab) 1,000 inter.unit BID PO 05/15/16 21:00 06/14/16 20:59 05/20/16 08:58 1,000 INTER.UNIT Clopidogrel Bisulfate (plAVix TAB) 75 mg QPM PO 05/15/16 21:00 06/14/16 20:59 05/19/16 21:59 75 MG Lisinopril (Zestril Tab) 40 mg DAILY PO 05/16/16 09:00 06/15/16 08:59 05/20/16 08:58 40 MG Pravastatin Sodium (Pravachol Tab) 20 mg QPM PO 05/15/16 21:00 06/14/16 20:59 05/19/16 21:59 20 MG Tamsulosin HCl (Flomax Cap) 0.4 mg DAILY PO 05/16/16 09:00 06/15/16 08:59 05/20/16 08:59 0.4 MG Fentanyl Citrate (Fentanyl Inj) 25 mcg Q5M PRN IV 05/15/16 13:15 05/15/16 15:00 DC 05/15/16 13:10 25 MCG Morphine Sulfate If PO analgesic is orde... Q2H PRN IV 05/15/16 13:30 05/29/16 13:29 05/16/16 02:59 2 MG Sodium Chloride (Nss 500ml) 500 ml @ 999 mls/hr Q31M ONCE IV 05/15/16 15:30 05/15/16 16:00 DC 05/15/16 15:41 999 MLS/HR Hydralazine HCl 10 mg 10 mg TODAY@2045 ONCE IV. 05/15/16 20:45 05/15/16 20:46 DC 05/15/16 20:53 10 MG Furosemide/Syringe (Lasix Inj/ Syringe) 2 ml @ 4 mls/min ONE ONCE IV 05/16/16 02:00 05/16/16 02:01 DC 05/16/16 02:09 4 MLS/MIN Pantoprazole Sodium (Protonix Tab) 40 mg QAM PO 05/16/16 09:00 05/16/16 12:14 DC 05/16/16 07:48 40 MG Potassium Chloride (Klor-Con M10) 40 meq NOW ONCE PO 05/16/16 07:45 05/16/16 07:46 DC 05/16/16 07:48 40 MEQ Metoprolol Tartrate 5 mg 5 mg NOW ONCE IV 05/16/16 07:30 05/16/16 07:31 DC 05/16/16 07:32 5 MG Magnesium Sulfate 1 gm/Prmx 100 ml @ 100 mls/hr NOW STAT IV 05/16/16 07:32 05/16/16 08:31 DC 05/16/16 07:49 100 MLS/HR Amiodarone HCL/ Dextrose 100 ml @ 600 mls/hr NOW ONCE IV 05/16/16 08:15 05/16/16 08:24 DC 05/16/16 09:11 600 MLS/HR Amiodarone HCL/ Dextrose 200 ml @ 33.3 mls/hr Q6H1M IV 05/16/16 08:30 05/16/16 14:30 DC 05/16/16 09:12 33.3 MLS/HR Amiodarone HCL/ Dextrose (Nexterone / D5w) 200 ml @ 16.7 mls/hr [id number] IV 05/16/16 14:45 05/17/16 12:30 DC 05/17/16 02:24 16.7 MLS/HR Amiodarone HCl (Cordarone Tab) 200 mg TIDM PO 05/16/16 12:30 06/15/16 12:29 05/20/16 08:58 200 MG Metoprolol Tartrate (Lopressor Tab) 25 mg BID PO 05/16/16 21:00 06/15/16 20:59 05/20/16 08:58 25 MG Enoxaparin Sodium 40 mg 40 mg DAILY SQ 05/18/16 09:00 06/17/16 08:59 05/20/16 08:59 40 MG Ciprofloxacin/ Dextrose 400 mg/ Prmx 200 ml @ 100 mls/hr Q12H IV 05/18/16 09:00 05/28/16 08:59 05/19/16 21:59 100 MLS/HR Metronidazole/Prmx (Flagyl / Nss/ Premixed Nss) 100 ml @ 100 mls/hr Q8H IV 05/18/16 08:00 05/28/16 07:59 05/20/16 08:58 100 MLS/HR Subjective He states he's lost a lot of weight but he is a difficult historian and its very difficult to place a time frame on the amount of weight that he's lost. He seems to be fairly pain-free. The history in regards to adenopathy is somewhat vague although he apparently has seen Dr. Moreland (oncologist) in [place] Review of Systems: Constitutional: Negative for night sweats however he has had a fair amount of weight loss Eyes: Negative for event change of vision ENT: Negative for epistaxis, nasal discharge, sore throat, or deafness Cardiovascular: Negative for chest pain, palpitations, dizziness, diaphoresis Respiratory: Negative for new shortness of breath,hemoptysis, or purulent cough Gastrointestinal: Negative for diarrhea, hematemesis, melena, nausea, vomiting , or dyspepsia Integumentary (skin): Negative for rash or jaundice discoloration Genitourinary: Negative for urinary frequency, hematuria, or dysuria Neurological: Negative for weakness, seizure activity, headache, or dizziness Lymphatic/Hematologic: Negative for petechiae, bleeding or new adenopathy Musculoskeletal: Negative for new joint or back pain Allergic/Immunologic: Negative for unusual rash or pruritis. Vital Signs Vital Signs Past 12 Hours Date Time Temp Pulse Resp B/P Pulse Ox O2 Delivery O2 Flow Rate FiO2 05/20/16 07:19 36.7 72 20 146/73 94 Room Air 05/20/16 04:00 Room Air 05/20/16 03:10 36.4 68 18 132/62 95 Room Air 05/20/16 00:16 Room Air 05/19/16 23:06 37.1 66 18 139/68 97 Room Air Physical Exam Constitutional: vitals are stable. Eyes: Eyes are RIC EOMI without conjuctival erythema or icterus. ENT: External examination was negative for masses. Neck: Negative for masses or palpable thyromegaly Respiratory: Lung sounds were generally clear bilaterally Cardiovascular: Heart was RRR without significant murmur, gallops aoe rubs Gastrointestinal: No palpable hepatic or splenomegaly. The abdomen was soft with normal bowel sounds. Lymphatic system: there was no palpable peripheral lymphadenopathy Musculoskeletal System: The musculoskeletal system seemed concordant with age. Skin: The skin was negative for jaundice. Neurologic exam: The exam was negative for any focal findings. Deep tendon reflexes were equal and symmetrical. Psychiatric exam: Was essentially negative with normal mood and effect. Extremities: Negative for edema or erythema Laboratory Last 24 Hours Test 05/20/16 05:17 White Blood Count 10.49 K/uL Red Blood Count 2.85 M/uL Hemoglobin 9.2 g/dL Hematocrit 26.9 % Mean Corpuscular Volume 94.4 fL Mean Corpuscular Hemoglobin 32.3 pg Mean Corpuscular Hemoglobin Concent 34.2 g/dl RDW Standard Deviation 60.2 fL RDW Coefficient of Variation 17.6 % Platelet Count 95 K/uL Mean Platelet Volume 11.2 fL Sodium Level 144 mmol/L Potassium Level 3.6 mmol/L Chloride Level 111 mmol/L Carbon Dioxide Level 23 mmol/L Anion Gap 10.0 mmol/L Blood Urea Nitrogen 34 mg/dl Creatinine 1.00 mg/dl Est Creatinine Clear Calc Drug Dose 44.7 ml/min Estimated GFR () 78.1 Estimated GFR (Non- 67.4 BUN/Creatinine Ratio 34.0 Random Glucose 120 mg/dl Calcium Level 7.8 mg/dl Assessment & Plan I Did review his CT scans and the retroperitoneal adenopathy is fairly impressive. There were old scans available from February of last year that showed the same adenopathy. 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
--- NOTE | 2016-05-20 10:23 | Progress Note ---
Progress Note Date of Service: May 20, 2016. Subjective 85 yo m POD # 5 after PEVAR and R-L fem fem BPG, seen in f/u today. Pt admits mild pain in incisions. States has been ambulating to BR. No new complaints. Anxious for d/c, but understands and agrees that rehab is recommended. Objective Vital Signs Vital Signs Past 12 Hours Date Time Temp Pulse Resp B/P Pulse Ox O2 Delivery O2 Flow Rate FiO2 05/20/16 07:19 36.7 72 20 146/73 94 Room Air 05/20/16 04:00 Room Air 05/20/16 03:10 36.4 68 18 132/62 95 Room Air 05/20/16 00:16 Room Air 05/19/16 23:06 37.1 66 18 139/68 97 Room Air Exam CONST: A&O x4, NAD, healthy for age appearing male CHEST: RRR, lungs decreased, but ctab ABD: soft, mildly tender over pelvic area/fem fem tunnel, + bs x 4 Quad EXT: BL groin incision C/D/I with pushpa. + local tenderness. + distal doppler pulses. Intake & Output 8-Hour Column 05/19/16 05/19/16 05/20/16 15:59 23:59 07:59 Intake Total 360 ml 440 ml 300 ml Output Total 500 ml 275 ml 325 ml Balance -140 ml 165 ml -25 ml 24-Hour Column 05/20/16 07:59 Intake Total 1100 ml Output Total 1100 ml Balance 0 ml Laboratory and Microbiology Results Past 24 Hours Test 05/20/16 05:17 Range/Units White Blood Count 10.49 4.8-10.8 K/uL Red Blood Count 2.85 4.7-6.1 M/uL Hemoglobin 9.2 14.0-18.0 g/dL Hematocrit 26.9 42-52 % Mean Corpuscular Volume 94.4 80-100 fL Mean Corpuscular Hemoglobin 32.3 25-34 pg Mean Corpuscular Hemoglobin Concent 34.2 32-36 g/dl RDW Standard Deviation 60.2 36.4-46.3 fL RDW Coefficient of Variation 17.6 11.5-14.5 % Platelet Count 95 130-400 K/uL Mean Platelet Volume 11.2 7.4-10.4 fL Sodium Level 144 136-145 mmol/L Potassium Level 3.6 3.5-5.1 mmol/L Chloride Level 111 98-107 mmol/L Carbon Dioxide Level 23 21-32 mmol/L Anion Gap 10.0 3-11 mmol/L Blood Urea Nitrogen 34 7-18 mg/dl Creatinine 1.00 0.60-1.40 mg/dl Est Creatinine Clear Calc Drug Dose 44.7 ml/min Estimated GFR () 78.1 Estimated GFR (Non- 67.4 BUN/Creatinine Ratio 34.0 10-20 Random Glucose 120 70-99 mg/dl Calcium Level 7.8 8.5-10.1 mg/dl ASSESSMENT and PLAN: s/p PEVAR and R-L fem fem BPG AAA Post op anemia Retroperitoneal adenopathy Pt doing well post op. Hgb stable, over 9. Appreciate recs from oncology. Remove bowen today for voiding trial. Transfer to med/surg. D/C to rehab when approved.
--- NOTE | 2016-05-20 11:39 | DIAGNOSTIC IMAGING REPORT ---
CT OF THE CHEST WITHOUT IV CONTRAST CLINICAL HISTORY: Abdominal adenopathy. COMPARISON STUDY: None. CT DOSE: 208.69 mGy.cm TECHNIQUE: Axial images of the chest were obtained without IV contrast. Images were reviewed in the axial, sagittal, and coronal planes. IV contrast was not administered for this examination. FINDINGS: There are multiple enlarged lower cervical, bilateral supraclavicular, mediastinal and bilateral axillary lymph nodes. An index left lower cervical/upper mediastinal lymph node measures 4 x 2.9 x 2.1 cm. An index right paratracheal node measures 2.5 cm in short axis diameter. An index right axillary node measures 1.1 cm in short axis diameter. The heart is moderately enlarged. There is no pericardial effusion. There are are small bilateral pleural effusions with associated atelectasis. There is no pneumothorax. Groundglass opacities likely reflect atelectasis. Central airways are patent. There are healed left rib fractures. There is a moderate compression fracture of T8 as well as a moderate compression fracture of T10. There is infiltration surrounding the compression fractures, greater at the T10 level. There is minimal retropulsion at each level. Visualized portions of the upper abdomen partially visualize an aortic endovascular stent graft as well as moderate retroperitoneal lymphadenopathy. IMPRESSION: 1. Moderate lower cervical, mediastinal and bilateral axillary lymphadenopathy. 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 Metastatic disease could appear similar although is considered less likely. 2. Moderate T8 and T10 compression fractures with minimal retropulsion at each level. These fractures are likely acute to subacute. 3. Small bilateral pleural effusions with associated atelectasis. 4. Redemonstration of retroperitoneal lymphadenopathy which is better depicted on recent abdominal CT. Electronically signed by: Pavan Balderas M.D. 05/20/2016 11:38 AM Dictated Date/Time: 05/20/2016 11:27 AM
[2016-05-20] MEDS: CIPROFLOXACIN / D5W 400 MG in PREMIXED IN D5W 200 ML IV SCH (12:09)
[2016-05-20] MEDS: CALCIUM 600MG + VIT D 400 IU TAB PO SCH (12:10)
--- NOTE | 2016-05-20 13:28 | Progress Note ---
Subjective Date of Service: May 20, 2016. Subjective Pt evaluation today including: conversation w/ patient, physical exam, lab review, conversation w/ library sales consultant, review of inpatient medication list Pain: no pain PO Intake: adequate Voiding: bowen catheter in place patient feeling well, sitting up in a chair today no issues over night discussed need for CT of the chest to look further into lymphadenopathy patient's main concern is SNF placement for rehabilitation Review of Systems Constitutional: + fatigue, + weakness All Other Systems: Reviewed and Negative Medications Current Inpatient Medications Medications (Trade) Dose Ordered Sig/Art Route Start Time Stop Time Status Last Admin Dose Admin Morphine Sulfate (MoRPHine SULFATE INJ) If PO analgesic is orde... Q2H PRN IV 05/15/16 12:15 05/29/16 12:14 Oxycodone/ Acetaminophen (Percocet 5-325mg Tab) `1-2 TABS FOR MODER... Q4H PRN PO 05/15/16 12:15 05/29/16 12:14 05/18/16 04:56 2 TAB Ondansetron HCl (Zofran Inj) 4 mg Q6H PRN IV 05/15/16 12:15 06/14/16 12:14 Aspirin (Ecotrin Tab) 81 mg DAILY PO 05/16/16 09:00 06/15/16 08:59 05/20/16 08:59 81 MG Calcium/Vitamin D (Caltrate Plus Tab) 1 tab DAILY@1200 PO 05/16/16 12:00 06/15/16 11:59 05/20/16 12:10 1 TAB Cholecalciferol (Vitamin D Tab) 1,000 inter.unit BID PO 05/15/16 21:00 06/14/16 20:59 05/20/16 08:58 1,000 INTER.UNIT Clopidogrel Bisulfate (plAVix TAB) 75 mg QPM PO 05/15/16 21:00 06/14/16 20:59 05/19/16 21:59 75 MG Lisinopril (Zestril Tab) 40 mg DAILY PO 05/16/16 09:00 06/15/16 08:59 05/20/16 08:58 40 MG Pravastatin Sodium (Pravachol Tab) 20 mg QPM PO 05/15/16 21:00 06/14/16 20:59 05/19/16 21:59 20 MG Tamsulosin HCl (Flomax Cap) 0.4 mg DAILY PO 05/16/16 09:00 06/15/16 08:59 05/20/16 08:59 0.4 MG Miscellaneous Information (Order Awaiting Action) 1 ea QS N/A 05/15/16 16:00 06/14/16 15:59 Morphine Sulfate (MoRPHine SULFATE INJ) If PO analgesic is orde... Q2H PRN IV 05/15/16 13:30 05/29/16 13:29 05/16/16 02:59 2 MG Amiodarone HCl (Cordarone Tab) 200 mg TIDM PO 05/16/16 12:30 06/15/16 12:29 05/20/16 12:09 200 MG Metoprolol Tartrate (Lopressor Tab) 25 mg BID PO 05/16/16 21:00 06/15/16 20:59 05/20/16 08:58 25 MG Enoxaparin Sodium (Lovenox Inj) 40 mg DAILY SQ 05/18/16 09:00 06/17/16 08:59 05/20/16 08:59 40 MG Ciprofloxacin (Consult) 1 ea UD PRN N/A 05/18/16 08:00 06/17/16 07:59 Ciprofloxacin (Cipro Tab) 500 mg BID PO 05/20/16 12:00 05/28/16 07:59 Metronidazole (Flagyl Tab) 500 mg Q8 PO 05/20/16 14:00 05/28/16 07:59 Objective Vital Signs Date Time Temp Pulse Resp B/P Pulse Ox O2 Delivery O2 Flow Rate FiO2 05/20/16 11:40 36.7 64 16 134/71 94 Room Air 05/20/16 07:19 36.7 72 20 146/73 94 Room Air 05/20/16 04:00 Room Air 05/20/16 03:10 36.4 68 18 132/62 95 Room Air 05/20/16 00:16 Room Air 05/19/16 23:06 37.1 66 18 139/68 97 Room Air 05/19/16 20:00 Room Air 05/19/16 19:25 37.1 77 18 142/68 97 Room Air 05/19/16 16:04 36.7 73 16 144/64 97 Room Air 05/19/16 16:00 95 Room Air Physical Exam General Appearance: no apparent distress, + thin ENT: normal ENT inspection, hearing grossly normal, pharynx normal Neck: supple, no adenopathy, no JVD, trachea midline Respiratory/Chest: chest non-tender, lungs clear, normal breath sounds, no respiratory distress, no accessory muscle use Cardiovascular: regular rate, rhythm, no edema, no gallop, no JVD, no murmur Abdomen: normal bowel sounds, non tender, soft, no organomegaly Extremities: normal range of motion, non-tender, normal inspection, no pedal edema, no calf tenderness Neurologic/Psychiatric: 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, no motor/sensory deficits, alert, normal mood/affect, oriented x 3 Skin: normal color, warm/dry, no rash Lymphatic: no adenopathy Laboratory Results Last 24 Hours Test 2617 05:17 White Blood Count 10.49 K/uL Red Blood Count 2.85 M/uL Hemoglobin 9.2 g/dL Hematocrit 26.9 % Mean Corpuscular Volume 94.4 fL Mean Corpuscular Hemoglobin 32.3 pg Mean Corpuscular Hemoglobin Concent 34.2 g/dl RDW Standard Deviation 60.2 fL RDW Coefficient of Variation 17.6 % Platelet Count 95 K/uL Mean Platelet Volume 11.2 fL Sodium Level 144 mmol/L Potassium Level 3.6 mmol/L Chloride Level 111 mmol/L Carbon Dioxide Level 23 mmol/L Anion Gap 10.0 mmol/L Blood Urea Nitrogen 34 mg/dl Creatinine 1.00 mg/dl Est Creatinine Clear Calc Drug Dose 44.7 ml/min Estimated GFR () 78.1 Estimated GFR (Non- 67.4 BUN/Creatinine Ratio 34.0 Random Glucose 120 mg/dl Calcium Level 7.8 mg/dl Assessment and Plan POD#5 s/p Abdominal Aortic Endovascular Repair - management per vascular surgery team - cont morphine and Percocet for pain control Sigmoid Diverticulitis - cont Flagyl and ciprofloxacin Day #3 - no symptoms, would complete 10-14 days total Anemia - unclear etiology - transfused on 1u pRBC 2.3.17 - Hb stable at 9.2, continue to monitor - CT abdomen showed no intra abdominal bleed Meseteric Lymphadenopathy - appreciate oncology consultation - CT chest today shows axillary, cervical and mediastinal lymphadenopathy favoring a lymphoma - no B symptoms over the past few months - will discuss further with oncology, could pursue a biopsy now or as outpatient H/o CVA - cont ASA and plavix HTN - stable on Lisinopril BPH - cont flomax PPx - lovenox FULL CODE Disposition- transfer to medical floor, evaluate with therapy, d/c bowen today will likely need SNF with rehab, CM is aware
[2016-05-20] MEDS: METRONIDAZOLE 500 MG TAB PO SCH ×2 (13:40→21:54)
[2016-05-20] MEDS: CIPROFLOXACIN 500 MG TAB PO SCH (13:41)
[2016-05-20] MEDS: CLOPIDOGREL BISULFATE 75 MG TAB PO SCH (21:53)
[2016-05-20] MEDS: PRAVASTATIN SOD 20 MG TAB PO SCH (21:53)
[2016-05-21] MEDS: CIPROFLOXACIN 500 MG TAB PO SCH ×3 (00:22→20:49)
[2016-05-21] MEDS: METRONIDAZOLE 500 MG TAB PO SCH ×3 (05:53→21:49)
[2016-05-21 07:56] VITALS: BP 160/66; PULSE 72; TEMP 36.4; O2SAT 94
[2016-05-21] MEDS: ASPIRIN 81 MG ECTAB PO SCH (09:46)
[2016-05-21] MEDS: CHOLECALCIFEROL 1000 INTER.UNIT TAB PO SCH ×2 (09:47→20:49)
[2016-05-21] MEDS: TAMSULOSIN HCL 0.4 MG CAP PO SCH (09:47)
[2016-05-21] MEDS: ENOXAPARIN 40 MG/0.4 ML SYR SQ SCH (09:48)
[2016-05-21 09:49] VITALS: BP 149/75; PULSE 86
[2016-05-21] MEDS: AMIODARONE 200 MG TAB PO SCH ×3 (09:50→18:16)
[2016-05-21] MEDS: LISINOPRIL 40 MG TAB PO SCH (09:51)
[2016-05-21] MEDS: METOPROLOL TARTRATE 25 MG TAB PO SCH ×2 (09:51→20:48)
--- NOTE | 2016-05-21 10:14 | Progress Note ---
Progress Note Date of Service: May 21, 2016. Subjective 85 yo m POD #6 after PEVAR and fem fem BPG, seen in f/u today. Pt admits mild pain in incisions. Denies any other complaints. Is frustrated at length of stay in hospital. Objective Vital Signs Vital Signs Past 12 Hours Date Time Temp Pulse Resp B/P Pulse Ox O2 Delivery O2 Flow Rate FiO2 05/21/16 09:49 86 149/75 05/21/16 07:56 36.4 72 20 160/66 94 Room Air 05/21/16 00:20 Room Air 05/20/16 23:09 36.4 65 16 147/70 97 Room Air Exam CONST: A&O x4, NAD, healthy for age appearing male CHEST: RRR, lungs decreased, but ctab ABD: soft, mildly tender over pelvic area/fem fem tunnel, + bs x 4 Quad EXT: BL groin incision C/D/I with pushpa. + local tenderness and old ecchymosis. + distal doppler pulse Intake & Output 8-Hour Column 05/20/16 05/21/16 05/21/16 16:00 00:00 08:00 Intake Total 200 ml Balance 200 ml 24-Hour Column 05/21/16 08:00 Intake Total 200 ml Balance 200 ml ASSESSMENT and PLAN: s/p PEVAR and fem fem BPG Pt doing well post op. Pending recs from oncology, ok for d/c from vascular standpoint to rehab when set up.
--- NOTE | 2016-05-21 10:40 | Hematology/Oncology Prog Note ---
Hematology/Onc Progress Note Date of Service May 21, 2016. Diagnoses Retroperitoneal adenopathy Mild thrombocytopenia Anemia Medications Medications Administered Medications (Trade) Dose Ordered Sig/Art Route Start Time Stop Time Status Last Admin Dose Admin Sodium Chloride (Nss 1000ml) 1,000 ml @ 100 mls/hr Q10H IV 05/15/16 06:00 05/15/16 15:59 DC 05/15/16 07:29 100 MLS/HR Hydrocortisone Sodium Succinate (Solu-Cortef IV) 100 mg STK-MED ONCE .ROUTE 05/15/16 07:17 05/15/16 07:18 DC 05/15/16 07:45 100 MG Iodixanol (Visipaque 150ml) 20,400 mg ONE ONCE FLUSH 05/15/16 11:13 05/15/16 11:15 DC 05/15/16 11:13 20,400 MG Heparin Sodium/ Sodium Chloride (Heparin Sod/Ns 2 Units/Ml) 100 unit ONE ONCE IV 05/15/16 11:13 05/15/16 11:15 DC 05/15/16 11:13 100 UNIT Bupivacaine HCl/ Epinephrine Bitart (Sensorcaine/ Epinephrine 0.5% Mpf 1:200,000) 11 ml ONE ONCE INFIL 05/15/16 11:13 05/15/16 11:15 DC 05/15/16 11:13 11 ML Gelatin (Gelfoam Size 100) 1 ea ONE ONCE TOP 05/15/16 12:05 05/15/16 12:06 DC 05/15/16 12:05 1 EA Thrombin (Thrombin 20,000 Units (Recombinant)) 20,000 units ONE ONCE TOP 05/15/16 12:07 05/15/16 12:08 DC 05/15/16 12:07 20,000 UNITS Bacitracin (Bacitracin 50,000 Units) 50,000 units ONE ONCE IR 05/15/16 12:07 05/15/16 12:08 DC 05/15/16 12:07 50,000 UNITS Oxycodone/ Acetaminophen `1-2 TABS FOR MODER... Q4H PRN PO 05/15/16 12:15 05/29/16 12:14 05/18/16 04:56 2 TAB Cefazolin Sodium/ Dextrose (Ancef Iv/D5 50ml) 55 ml @ 100 mls/hr Q8H IV 05/15/16 16:00 05/16/16 00:32 DC 05/15/16 23:45 100 MLS/HR Enoxaparin Sodium 30 mg 30 mg Q12H SQ 05/16/16 08:00 05/16/16 08:59 DC 05/16/16 07:33 30 MG Dextrose/Sodium Chloride (D5W And 1/2nss) 1,000 ml @ 100 mls/hr Q10H IV 05/15/16 14:15 05/16/16 10:02 DC 05/16/16 07:31 100 MLS/HR Aspirin (Ecotrin Tab) 81 mg DAILY PO 05/16/16 09:00 06/15/16 08:59 05/20/16 08:59 81 MG Calcium/Vitamin D (Caltrate Plus Tab) 1 tab DAILY@1200 PO 05/16/16 12:00 06/15/16 11:59 05/20/16 12:10 1 TAB Cholecalciferol (Vitamin D Tab) 1,000 inter.unit BID PO 05/15/16 21:00 06/14/16 20:59 05/20/16 21:54 1,000 INTER.UNIT Clopidogrel Bisulfate (plAVix TAB) 75 mg QPM PO 05/15/16 21:00 06/14/16 20:59 05/20/16 21:53 75 MG Lisinopril (Zestril Tab) 40 mg DAILY PO 05/16/16 09:00 06/15/16 08:59 05/20/16 08:58 40 MG Pravastatin Sodium (Pravachol Tab) 20 mg QPM PO 05/15/16 21:00 06/14/16 20:59 05/20/16 21:53 20 MG Tamsulosin HCl (Flomax Cap) 0.4 mg DAILY PO 05/16/16 09:00 06/15/16 08:59 05/20/16 08:59 0.4 MG Fentanyl Citrate (Fentanyl Inj) 25 mcg Q5M PRN IV 05/15/16 13:15 05/15/16 15:00 DC 05/15/16 13:10 25 MCG Morphine Sulfate If PO analgesic is orde... Q2H PRN IV 05/15/16 13:30 05/29/16 13:29 05/16/16 02:59 2 MG Sodium Chloride (Nss 500ml) 500 ml @ 999 mls/hr Q31M ONCE IV 05/15/16 15:30 05/15/16 16:00 DC 05/15/16 15:41 999 MLS/HR Hydralazine HCl 10 mg 10 mg TODAY@2045 ONCE IV. 05/15/16 20:45 05/15/16 20:46 DC 05/15/16 20:53 10 MG Furosemide/Syringe (Lasix Inj/ Syringe) 2 ml @ 4 mls/min ONE ONCE IV 05/16/16 02:00 05/16/16 02:01 DC 05/16/16 02:09 4 MLS/MIN Pantoprazole Sodium (Protonix Tab) 40 mg QAM PO 05/16/16 09:00 05/16/16 12:14 DC 05/16/16 07:48 40 MG Potassium Chloride (Klor-Con M10) 40 meq NOW ONCE PO 05/16/16 07:45 05/16/16 07:46 DC 05/16/16 07:48 40 MEQ Metoprolol Tartrate 5 mg 5 mg NOW ONCE IV 05/16/16 07:30 05/16/16 07:31 DC 05/16/16 07:32 5 MG Magnesium Sulfate 1 gm/Prmx 100 ml @ 100 mls/hr NOW STAT IV 05/16/16 07:32 05/16/16 08:31 DC 05/16/16 07:49 100 MLS/HR Amiodarone HCL/ Dextrose 100 ml @ 600 mls/hr NOW ONCE IV 05/16/16 08:15 05/16/16 08:24 DC 05/16/16 09:11 600 MLS/HR Amiodarone HCL/ Dextrose 200 ml @ 33.3 mls/hr Q6H1M IV 05/16/16 08:30 05/16/16 14:30 DC 05/16/16 09:12 33.3 MLS/HR Amiodarone HCL/ Dextrose (Nexterone / D5w) 200 ml @ 16.7 mls/hr [id number] IV 05/16/16 14:45 05/17/16 12:30 DC 05/17/16 02:24 16.7 MLS/HR Amiodarone HCl (Cordarone Tab) 200 mg TIDM PO 05/16/16 12:30 06/15/16 12:29 05/20/16 18:09 200 MG Metoprolol Tartrate (Lopressor Tab) 25 mg BID PO 05/16/16 21:00 06/15/16 20:59 05/20/16 21:52 25 MG Enoxaparin Sodium 40 mg 40 mg DAILY SQ 05/18/16 09:00 06/17/16 08:59 05/20/16 08:59 40 MG Ciprofloxacin/ Dextrose 400 mg/ Prmx 200 ml @ 100 mls/hr Q12H IV 05/18/16 09:00 05/20/16 12:12 DC 05/20/16 12:09 100 MLS/HR Metronidazole/Prmx (Flagyl / Nss/ Premixed Nss) 100 ml @ 100 mls/hr Q8H IV 05/18/16 08:00 05/20/16 12:12 DC 05/20/16 08:58 100 MLS/HR Ciprofloxacin (Cipro Tab) 500 mg BID PO 05/20/16 12:00 05/28/16 07:59 05/21/16 00:22 500 MG Metronidazole (Flagyl Tab) 500 mg Q8 PO 05/20/16 14:00 05/28/16 07:59 05/21/16 05:53 500 MG Subjective Review of his chest CT does reveal some mediastinal adenopathy. They comment that there is axillary adenopathy but the lymph nodes are actually quite small in that area. Otherwise he seems to be doing well. He is growing impatient with being in the hospital Review of Systems: Constitutional: Negative for weight loss, night sweats, or fever Eyes: Negative for event change of vision ENT: Negative for epistaxis, nasal discharge, sore throat, or deafness Cardiovascular: Negative for chest pain, palpitations, dizziness, diaphoresis Respiratory: Negative for new shortness of breath,hemoptysis, or purulent cough Gastrointestinal: Negative for diarrhea, hematemesis, melena, nausea, vomiting , or dyspepsia Integumentary (skin): Negative for rash or jaundice discoloration Genitourinary: Negative for urinary frequency, hematuria, or dysuria Neurological: Negative for weakness, seizure activity, headache, or dizziness Lymphatic/Hematologic: Negative for petechiae, bleeding or new adenopathy Musculoskeletal: Negative for new joint or back pain Allergic/Immunologic: Negative for unusual rash or pruritis. Vital Signs Vital Signs Past 12 Hours Date Time Temp Pulse Resp B/P Pulse Ox O2 Delivery O2 Flow Rate FiO2 05/21/16 09:49 86 149/75 05/21/16 07:56 36.4 72 20 160/66 94 Room Air 05/21/16 00:20 Room Air 05/20/16 23:09 36.4 65 16 147/70 97 Room Air Physical Exam Constitutional: vitals are stable. Eyes: Eyes are RIC EOMI without conjuctival erythema or icterus. ENT: External examination was negative for masses. Neck: Negative for masses or palpable thyromegaly Respiratory: Lung sounds were generally clear bilaterally Cardiovascular: Heart was RRR without significant murmur, gallops aoe rubs Gastrointestinal: No palpable hepatic or splenomegaly. The abdomen was soft with normal bowel sounds. Lymphatic system: there was no palpable peripheral lymphadenopathy Musculoskeletal System: The musculoskeletal system seemed concordant with age. Skin: The skin was negative for jaundice. Neurologic exam: The exam was negative for any focal findings. Deep tendon reflexes were equal and symmetrical. Psychiatric exam: Was essentially negative with normal mood and effect. Extremities: Some ecchymosis that is old at the site of stent placement in the inguinal areas Assessment & Plan I reviewed the results of the CT scans with the patient once again. I feel that he will most likely need a laparoscopic biopsy of an abdominal lymph node to obtain enough tissue for accurate characterization of his lymphadenopathy. So that that procedure was not "slip through the cracks" I would ask that a surgeon be consulted perhaps not to do the surgery now but within the next few weeks as an outpatient. We will arrange for follow-up in our clinic to occur in the next 2-3 weeks. This was discussed with the hospitalist Dr. Hernandes.
[2016-05-21] MEDS: CALCIUM 600MG + VIT D 400 IU TAB PO SCH (12:19)
[2016-05-21 13:05] VITALS: BP 133/66; PULSE 67
--- NOTE | 2016-05-21 14:33 | Progress Note ---
Subjective Date of Service: May 21, 2016. Subjective Pt evaluation today including: conversation w/ patient, physical exam, chart review, lab review, review of studies, review of inpatient medication list Frustrated with length of stay here No worsening pain Does not want any further biopsy or treatment Review of Systems Constitutional: No chills, No fever Respiratory: No cough, No dyspnea on exertion, No shortness of breath, No sputum, No wheezing Cardiac: No chest pain, No orthopnea Abdomen: No diarrhea, No nausea, No pain, No vomiting Musculoskeletal: No joint pain, No muscle pain Male : No dysuria, No urinary frequency Objective Vital Signs Date Time Temp Pulse Resp B/P Pulse Ox O2 Delivery O2 Flow Rate FiO2 05/21/16 13:05 67 133/66 05/21/16 09:49 86 149/75 05/21/16 08:30 Room Air 05/21/16 07:56 36.4 72 20 160/66 94 Room Air 05/21/16 00:20 Room Air 05/20/16 23:09 36.4 65 16 147/70 97 Room Air 05/20/16 15:50 Room Air 05/20/16 15:05 36.5 71 18 153/70 97 Room Air Physical Exam General Appearance: WD/WN, no apparent distress Neck: supple, no JVD Respiratory/Chest: lungs clear, normal breath sounds Cardiovascular: no edema, no gallop Abdomen: non tender, soft Neurologic/Psychiatric: alert, oriented x 3 Assessment and Plan POD# 6 s/p Abdominal Aortic Endovascular Repair - management per vascular surgery team - cont morphine and Percocet for pain control Sigmoid Diverticulitis - cont Flagyl and ciprofloxacin Day # 4 - no symptoms, would complete 10-14 days total Anemia - unclear etiology - transfused on 1u pRBC 2.3.17 - Hb stable at 9.2, continue to monitor - CT abdomen showed no intra abdominal bleed Meseteric Lymphadenopathy - appreciate oncology consultation - CT chest today shows axillary, cervical and mediastinal lymphadenopathy favoring a lymphoma - no B symptoms over the past few months - will discuss further with oncology, could pursue a biopsy now or as outpatient , pt would like to defer at this time as OP, states prefers to pursue on his own, refuses to have surgery consulted as inpatient H/o CVA - cont ASA and plavix HTN - stable on Lisinopril BPH - cont flomax PPx - lovenox FULL CODE
[2016-05-21 15:40] VITALS: BP 135/64; PULSE 71; TEMP 36.2; O2SAT 96
[2016-05-21] MEDS: CLOPIDOGREL BISULFATE 75 MG TAB PO SCH (20:48)
[2016-05-21] MEDS: PRAVASTATIN SOD 20 MG TAB PO SCH (20:49)
[2016-05-21 23:55] VITALS: BP 144/68; PULSE 61; TEMP 36.4; O2SAT 95
[2016-05-22] VITALS (7 sets, daily range): BP systolic 119–139; BP diastolic 64–68; PULSE 64–77; TEMP 36.7–37.1; O2SAT 94–98
[2016-05-22] MEDS: METRONIDAZOLE 500 MG TAB PO SCH ×3 (06:04→21:29)
[2016-05-22 06:54] LABS: HEMATOCRIT 26.8 % (42-52); MEAN CELL VOLUME 94.7 fL (80-100); MEAN CORPUSCULAR HEMOGLOBIN 31.8 pg (25-34); MEAN CORPUSCULAR HGB CONC 33.6 g/dl (32-36); MEAN PLATELET VOLUME 10.4 fL (7.4-10.4); PLATELET COUNT 136 K/uL (130-400); RED BLOOD COUNT 2.83 M/uL (4.7-6.1); WHITE BLOOD COUNT 13.64 K/uL (4.8-10.8)
[2016-05-22 07:26] LABS: CREATININE 0.97 mg/dl (0.60-1.40)
[2016-05-22] MEDS: CIPROFLOXACIN 500 MG TAB PO SCH ×2 (08:31→21:25)
[2016-05-22] MEDS: ASPIRIN 81 MG ECTAB PO SCH (08:31)
[2016-05-22] MEDS: AMIODARONE 200 MG TAB PO SCH ×3 (08:31→18:24)
[2016-05-22] MEDS: TAMSULOSIN HCL 0.4 MG CAP PO SCH (08:32)
[2016-05-22] MEDS: SACCHAROMYCES BOUL (FLORASTOR) 250 MG CAP PO SCH (08:32)
[2016-05-22] MEDS: METOPROLOL TARTRATE 25 MG TAB PO SCH ×2 (08:33→21:25)
[2016-05-22] MEDS: CHOLECALCIFEROL 1000 INTER.UNIT TAB PO SCH ×2 (08:33→21:29)
[2016-05-22] MEDS: ENOXAPARIN 40 MG/0.4 ML SYR SQ SCH (08:34)
[2016-05-22] MEDS: LISINOPRIL 40 MG TAB PO SCH (08:34)
[2016-05-22] MEDS: CALCIUM 600MG + VIT D 400 IU TAB PO SCH (12:13)
--- NOTE | 2016-05-22 12:23 | Hospitalist Progress Note ---
Hospitalist Progress Note Date of Service May 22, 2016. Subjective Pt evaluation today including: conversation w/ patient, physical exam, chart review, lab review, review of inpatient medication list Pain: 2/10 lower abdominal pain PO Intake: Tolerating PO diet Voiding: no voiding problems The patient reports not feeling well. He states that he feels very weak and fatigued, as if he has no energy at all. He also complains of some shortness of breath at rest while talking with me. He complains of a dull 2/10 pain in his lower abdomen. He states that he continues to have diarrhea. The patient denies fevers, chills, sweats, chest pain, palpitations, claudication, cough, wheezing, dyspnea on exertion, nausea, vomiting, dysuria, hematuria, urinary retention, paralysis, numbness and tingling. Additional Comments: See HPI for pertinent positives and negatives. All other systems reviewed and negative. Objective Vital Signs Date Time Temp Pulse Resp B/P Pulse Ox O2 Delivery O2 Flow Rate FiO2 05/22/16 09:54 94 Room Air 05/22/16 07:49 37.1 72 18 134/64 94 Room Air 05/22/16 07:30 Room Air 05/22/16 00:00 Room Air 05/21/16 23:55 36.4 61 16 144/68 95 Room Air 05/21/16 15:40 36.2 71 16 135/64 96 Room Air 05/21/16 15:30 Room Air 05/21/16 13:05 67 133/66 Physical Exam General Appearance: WD/WN, no apparent distress, + thin Eyes: normal inspection, PERRL, EOMI ENT: normal ENT inspection, hearing grossly normal, pharynx normal, + pertinent finding (dry oral mucosa) Neck: supple, no JVD, trachea midline Respiratory/Chest: lungs clear, normal breath sounds, no respiratory distress, + decreased breath sounds Cardiovascular: regular rate, rhythm, no gallop, no murmur Abdomen: normal bowel sounds, soft, + tenderness (LLQ TTP, suprapubic area markedly TTP), + pertinent finding (large area of ecchymosis at left groin) Extremities: non-tender, normal inspection, no pedal edema Neurologic/Psychiatric: alert, normal mood/affect, oriented x 3 Skin: normal color, warm/dry, no rash Laboratory Results Last 24 Hours Test 05/22/16 06:43 White Blood Count 13.64 K/uL Red Blood Count 2.83 M/uL Hemoglobin 9.0 g/dL Hematocrit 26.8 % Mean Corpuscular Volume 94.7 fL Mean Corpuscular Hemoglobin 31.8 pg Mean Corpuscular Hemoglobin Concent 33.6 g/dl RDW Standard Deviation 59.6 fL RDW Coefficient of Variation 17.2 % Platelet Count 136 K/uL Mean Platelet Volume 10.4 fL Creatinine 0.97 mg/dl Est Creatinine Clear Calc Drug Dose 46.1 ml/min Estimated GFR () 81.0 Estimated GFR (Non- 69.9 Assessment and Plan 85 y/o male with a history of HTN, HLD, anemia, BPH, h/o CVA who presents s/p PEVAR repair of AAA with Dr. Morales on 05/15 for medical management. AAA repair--POD #7 -Pain management per primary team -Morphine and Percocet for pain control--pt has not needed in several days Sigmoid diverticulitis -Continue Flagyl 500 mg PO TID and ciprofloxacin 500 mg PO BID. Day # 5, total of 10-14 day course Diarrhea--persistent for days -C. diff and stool cultures pending -Continue Florastor 250 mg PO qd Acute on chronic anemia -Likely acute blood loss anemia secondary to surgery -Transfused on 2u pRBC 2.3.17 -Hgb stable at 9.0, continue to monitor -CT abdomen showed no intra abdominal bleed Mesenteric Lymphadenopathy -CT chest shows axillary, cervical and mediastinal lymphadenopathy favoring a lymphoma -No B symptoms over the past few months -Consulted heme/onc appreciate recs: recommend biopsy in near future as an outpatient -Pt does not want biopsy now, refusing to have general surgery consulted to talk about future exploratory laparoscopy/biopsy A-fib--developed a-fib while in ICU, currently in SR -Continue Lopressor 25 mg PO BID and amiodarone 200 mg PO TID HTN--stable -Continue lisinopril 40 mg PO qd HLD -Continue pravastatin 20 mg PO qd BPH -Continue tamsulosin 0.4 mg PO qd H/o CVA -Continue ASA and Plavix DVT prophylaxis -Enoxaparin 40 mg SC q24h -RYAN [place] and SCDs Code Status -Level I, FULL RESUSCITATION STATUS Dispo -Awaiting placement. Referral placed to [facility] per pt request. Currently no bed available but anticipate a bed opening up soon -Case management is following
[2016-05-22] MEDS ORDERED: METRONIDAZOLE 250 MG TAB PO STA (12:37)
[2016-05-22] MEDS ORDERED: METRONIDAZOLE 500 MG TAB PO SCH (14:00)
--- NOTE | 2016-05-22 15:25 | Progress Note ---
Progress Note Date of Service: May 22, 2016. Subjective 85 yo m s/p PEVAR and fem-fem BPG, seen in f/u today. Pt states feeling ok. Admits BL groin pain with ambulation and occasional aching of back depending on position. Denies any other new complaints. Objective Vital Signs Vital Signs Past 12 Hours Date Time Temp Pulse Resp B/P Pulse Ox O2 Delivery O2 Flow Rate FiO2 05/22/16 12:11 64 138/65 05/22/16 09:54 94 Room Air 05/22/16 07:49 37.1 72 18 134/64 94 Room Air 05/22/16 07:30 Room Air Exam CONST: A&O x4, NAD, healthy for age appearing male CHEST: RRR, lungs decreased, but ctab ABD: soft, mildly tender over pelvic area/fem fem tunnel and BL flanks, old ecchymosis noted abd and BL flanks, + bs x 4 Quad EXT: BL groin incision C/D/I with pushpa. + local tenderness and old ecchymosis. + distal doppler pulse Intake & Output 8-Hour Column 05/21/16 05/22/16 05/22/16 16:00 00:00 08:00 Intake Total 240 ml Balance 240 ml 24-Hour Column 05/22/16 08:00 Intake Total 240 ml Balance 240 ml Laboratory and Microbiology Results Past 24 Hours Test 05/22/16 06:43 05/22/16 13:05 Range/Units White Blood Count 13.64 4.8-10.8 K/uL Red Blood Count 2.83 4.7-6.1 M/uL Hemoglobin 9.0 14.0-18.0 g/dL Hematocrit 26.8 42-52 % Mean Corpuscular Volume 94.7 80-100 fL Mean Corpuscular Hemoglobin 31.8 25-34 pg Mean Corpuscular Hemoglobin Concent 33.6 32-36 g/dl RDW Standard Deviation 59.6 36.4-46.3 fL RDW Coefficient of Variation 17.2 11.5-14.5 % Platelet Count 136 130-400 K/uL Mean Platelet Volume 10.4 7.4-10.4 fL Creatinine 0.97 0.60-1.40 mg/dl Est Creatinine Clear Calc Drug Dose 46.1 ml/min Estimated GFR () 81.0 Estimated GFR (Non- 69.9 Magnesium Level 1.9 1.8-2.4 mg/dl Microbiology Results 05/22/16 Shiga Toxin Test, Received Pending 05/22/16 Stool Culture, Received Pending 05/22/16 C.difficile Toxin B Gene (PCR) - Final, Complete Positive for C. difficile toxin B gene ASSESSMENT and PLAN: s/p PEVAR and fem-fem BPG Pt shahram + for C Diff today, already on flagyl and cipro. OK for d/c to rehab when placed. Discussed with SS today and hospitalist.
[2016-05-22] MEDS: CLOPIDOGREL BISULFATE 75 MG TAB PO SCH (21:27)
[2016-05-22] MEDS: PRAVASTATIN SOD 20 MG TAB PO SCH (21:28)
[2016-05-23] MEDS: METRONIDAZOLE 500 MG TAB PO SCH ×3 (06:03→22:01)
[2016-05-23 06:54] LABS: HEMATOCRIT 26.2 % (42-52); MEAN CELL VOLUME 96.3 fL (80-100); MEAN CORPUSCULAR HGB CONC 33.2 g/dl (32-36); MEAN PLATELET VOLUME 10.9 fL (7.4-10.4); PLATELET COUNT 162 K/uL (130-400); RED BLOOD COUNT 2.72 M/uL (4.7-6.1); WHITE BLOOD COUNT 13.01 K/uL (4.8-10.8)
[2016-05-23 07:18] LABS: BUN/CREATININE RATIO 29.7 (10-20); CALCIUM 7.7 mg/dl (8.5-10.1); CREATININE 0.98 mg/dl (0.60-1.40); MAGNESIUM 1.9 mg/dl (1.8-2.4); POTASSIUM 3.4 mmol/L (3.5-5.1)
[2016-05-23 07:34] VITALS: BP 130/69; PULSE 70; TEMP 36.4; O2SAT 95
[2016-05-23 08:00] VITALS: O2SAT 95
[2016-05-23] MEDS: AMIODARONE 200 MG TAB PO SCH ×3 (08:37→18:19)
[2016-05-23] MEDS: METOPROLOL TARTRATE 25 MG TAB PO SCH ×2 (08:38→21:59)
[2016-05-23] MEDS: TAMSULOSIN HCL 0.4 MG CAP PO SCH (08:38)
[2016-05-23] MEDS: ASPIRIN 81 MG ECTAB PO SCH (08:38)
[2016-05-23] MEDS: LISINOPRIL 40 MG TAB PO SCH (08:38)
[2016-05-23] MEDS: CHOLECALCIFEROL 1000 INTER.UNIT TAB PO SCH ×2 (08:39→22:01)
[2016-05-23] MEDS: CIPROFLOXACIN 500 MG TAB PO SCH ×2 (08:39→21:59)
[2016-05-23] MEDS: SACCHAROMYCES BOUL (FLORASTOR) 250 MG CAP PO SCH (08:39)
[2016-05-23] MEDS: ENOXAPARIN 40 MG/0.4 ML SYR SQ SCH (08:40)
[2016-05-23] MEDS ORDERED: POTASSIUM CHLORIDE 10 MEQ TABCR PO STA (09:04)
--- NOTE | 2016-05-23 09:26 | Hematology/Oncology Prog Note ---
Hematology/Onc Progress Note Date of Service May 23, 2016. Diagnoses Retroperitoneal adenopathy Mild thrombocytopenia Anemia Medications Medications Administered Medications (Trade) Dose Ordered Sig/Art Route Start Time Stop Time Status Last Admin Dose Admin Sodium Chloride (Nss 1000ml) 1,000 ml @ 100 mls/hr Q10H IV 05/15/16 06:00 05/15/16 15:59 DC 05/15/16 07:29 100 MLS/HR Hydrocortisone Sodium Succinate (Solu-Cortef IV) 100 mg STK-MED ONCE .ROUTE 05/15/16 07:17 05/15/16 07:18 DC 05/15/16 07:45 100 MG Iodixanol (Visipaque 150ml) 20,400 mg ONE ONCE FLUSH 05/15/16 11:13 05/15/16 11:15 DC 05/15/16 11:13 20,400 MG Heparin Sodium/ Sodium Chloride (Heparin Sod/Ns 2 Units/Ml) 100 unit ONE ONCE IV 05/15/16 11:13 05/15/16 11:15 DC 05/15/16 11:13 100 UNIT Bupivacaine HCl/ Epinephrine Bitart (Sensorcaine/ Epinephrine 0.5% Mpf 1:200,000) 11 ml ONE ONCE INFIL 05/15/16 11:13 05/15/16 11:15 DC 05/15/16 11:13 11 ML Gelatin (Gelfoam Size 100) 1 ea ONE ONCE TOP 05/15/16 12:05 05/15/16 12:06 DC 05/15/16 12:05 1 EA Thrombin (Thrombin 20,000 Units (Recombinant)) 20,000 units ONE ONCE TOP 05/15/16 12:07 05/15/16 12:08 DC 05/15/16 12:07 20,000 UNITS Bacitracin (Bacitracin 50,000 Units) 50,000 units ONE ONCE IR 05/15/16 12:07 05/15/16 12:08 DC 05/15/16 12:07 50,000 UNITS Oxycodone/ Acetaminophen `1-2 TABS FOR MODER... Q4H PRN PO 05/15/16 12:15 05/29/16 12:14 05/18/16 04:56 2 TAB Cefazolin Sodium/ Dextrose (Ancef Iv/D5 50ml) 55 ml @ 100 mls/hr Q8H IV 05/15/16 16:00 05/16/16 00:32 DC 05/15/16 23:45 100 MLS/HR Enoxaparin Sodium 30 mg 30 mg Q12H SQ 05/16/16 08:00 05/16/16 08:59 DC 05/16/16 07:33 30 MG Dextrose/Sodium Chloride (D5W And 1/2nss) 1,000 ml @ 100 mls/hr Q10H IV 05/15/16 14:15 05/16/16 10:02 DC 05/16/16 07:31 100 MLS/HR Aspirin (Ecotrin Tab) 81 mg DAILY PO 05/16/16 09:00 06/15/16 08:59 05/23/16 08:38 81 MG Calcium/Vitamin D (Caltrate Plus Tab) 1 tab DAILY@1200 PO 05/16/16 12:00 06/15/16 11:59 05/22/16 12:13 1 TAB Cholecalciferol (Vitamin D Tab) 1,000 inter.unit BID PO 05/15/16 21:00 06/14/16 20:59 05/23/16 08:39 1,000 INTER.UNIT Clopidogrel Bisulfate (plAVix TAB) 75 mg QPM PO 05/15/16 21:00 06/14/16 20:59 05/22/16 21:27 75 MG Lisinopril (Zestril Tab) 40 mg DAILY PO 05/16/16 09:00 06/15/16 08:59 05/23/16 08:38 40 MG Pravastatin Sodium (Pravachol Tab) 20 mg QPM PO 05/15/16 21:00 06/14/16 20:59 05/22/16 21:28 20 MG Tamsulosin HCl (Flomax Cap) 0.4 mg DAILY PO 05/16/16 09:00 06/15/16 08:59 05/23/16 08:38 0.4 MG Fentanyl Citrate (Fentanyl Inj) 25 mcg Q5M PRN IV 05/15/16 13:15 05/15/16 15:00 DC 05/15/16 13:10 25 MCG Morphine Sulfate If PO analgesic is orde... Q2H PRN IV 05/15/16 13:30 05/29/16 13:29 05/16/16 02:59 2 MG Sodium Chloride (Nss 500ml) 500 ml @ 999 mls/hr Q31M ONCE IV 05/15/16 15:30 05/15/16 16:00 DC 05/15/16 15:41 999 MLS/HR Hydralazine HCl 10 mg 10 mg TODAY@2045 ONCE IV. 05/15/16 20:45 05/15/16 20:46 DC 05/15/16 20:53 10 MG Furosemide/Syringe (Lasix Inj/ Syringe) 2 ml @ 4 mls/min ONE ONCE IV 05/16/16 02:00 05/16/16 02:01 DC 05/16/16 02:09 4 MLS/MIN Pantoprazole Sodium (Protonix Tab) 40 mg QAM PO 05/16/16 09:00 05/16/16 12:14 DC 05/16/16 07:48 40 MG Potassium Chloride (Klor-Con M10) 40 meq NOW ONCE PO 05/16/16 07:45 05/16/16 07:46 DC 05/16/16 07:48 40 MEQ Metoprolol Tartrate 5 mg 5 mg NOW ONCE IV 05/16/16 07:30 05/16/16 07:31 DC 05/16/16 07:32 5 MG Magnesium Sulfate 1 gm/Prmx 100 ml @ 100 mls/hr NOW STAT IV 05/16/16 07:32 05/16/16 08:31 DC 05/16/16 07:49 100 MLS/HR Amiodarone HCL/ Dextrose 100 ml @ 600 mls/hr NOW ONCE IV 05/16/16 08:15 05/16/16 08:24 DC 05/16/16 09:11 600 MLS/HR Amiodarone HCL/ Dextrose 200 ml @ 33.3 mls/hr Q6H1M IV 05/16/16 08:30 05/16/16 14:30 DC 05/16/16 09:12 33.3 MLS/HR Amiodarone HCL/ Dextrose (Nexterone / D5w) 200 ml @ 16.7 mls/hr [id number] IV 05/16/16 14:45 05/17/16 12:30 DC 05/17/16 02:24 16.7 MLS/HR Amiodarone HCl (Cordarone Tab) 200 mg TIDM PO 05/16/16 12:30 06/15/16 12:29 05/23/16 08:37 200 MG Metoprolol Tartrate (Lopressor Tab) 25 mg BID PO 05/16/16 21:00 06/15/16 20:59 05/23/16 08:38 25 MG Enoxaparin Sodium 40 mg 40 mg DAILY SQ 05/18/16 09:00 06/17/16 08:59 05/23/16 08:40 40 MG Ciprofloxacin/ Dextrose 400 mg/ Prmx 200 ml @ 100 mls/hr Q12H IV 05/18/16 09:00 05/20/16 12:12 DC 05/20/16 12:09 100 MLS/HR Metronidazole/Prmx (Flagyl / Nss/ Premixed Nss) 100 ml @ 100 mls/hr Q8H IV 05/18/16 08:00 05/20/16 12:12 DC 05/20/16 08:58 100 MLS/HR Ciprofloxacin (Cipro Tab) 500 mg BID PO 05/20/16 12:00 05/28/16 07:59 05/23/16 08:39 500 MG Metronidazole (Flagyl Tab) 500 mg Q8 PO 05/20/16 14:00 05/28/16 07:59 05/23/16 06:03 500 MG Saccharomyces Boulardii (Florastor Cap) 250 mg DAILY PO 05/22/16 09:00 06/21/16 08:59 05/23/16 08:39 250 MG Subjective Notes reflect that he prefers not to have a surgical consult at this point. He is aware and we have re-told him that he has significant adenopathy that needs biopsied. Review of Systems: Constitutional: Negative for weight loss, night sweats, or fever Eyes: Negative for event change of vision ENT: Negative for epistaxis, nasal discharge, sore throat, or deafness Cardiovascular: Negative for chest pain, palpitations, dizziness, diaphoresis Respiratory: Negative for new shortness of breath,hemoptysis, or purulent cough Gastrointestinal: Negative for diarrhea, hematemesis, melena, nausea, vomiting , or dyspepsia Integumentary (skin): Negative for rash or jaundice discoloration Genitourinary: Negative for urinary frequency, hematuria, or dysuria Neurological: Negative for weakness, seizure activity, headache, or dizziness Lymphatic/Hematologic: Negative for petechiae, bleeding or new adenopathy Musculoskeletal: Negative for new joint pain but does complain of back pain lower thoracic area Allergic/Immunologic: Negative for unusual rash or pruritis. Vital Signs Vital Signs Past 12 Hours Date Time Temp Pulse Resp B/P Pulse Ox O2 Delivery O2 Flow Rate FiO2 05/23/16 07:34 36.4 70 20 130/69 95 Room Air 05/22/16 23:50 Room Air 05/22/16 23:20 36.7 65 18 119/65 94 Room Air 05/22/16 21:26 74 134/65 Physical Exam Constitutional: vitals are stable. Thin pleasant elderly gentleman Eyes: Eyes are RIC EOMI without conjuctival erythema or icterus. ENT: External examination was negative for masses. Neck: Negative for masses or palpable thyromegaly Respiratory: Lung sounds were generally clear bilaterally Cardiovascular: Heart was RRR without significant murmur, gallops aoe rubs Gastrointestinal: No palpable hepatic or splenomegaly. The abdomen was soft with normal bowel sounds. Lymphatic system: there was no palpable peripheral lymphadenopathy Musculoskeletal System: The musculoskeletal system seemed concordant with age. Skin: The skin was negative for jaundice. Resolving ecchymosis in the inguinal areas particularly. Neurologic exam: The exam was negative for any focal findings. Deep tendon reflexes were equal and symmetrical. Psychiatric exam: Was essentially negative with normal mood and effect. Extremities: Negative for edema or erythema Laboratory Last 24 Hours Test 05/22/16 13:05 05/23/16 06:35 Magnesium Level 1.9 mg/dl 1.9 mg/dl White Blood Count 13.01 K/uL Red Blood Count 2.72 M/uL Hemoglobin 8.7 g/dL Hematocrit 26.2 % Mean Corpuscular Volume 96.3 fL Mean Corpuscular Hemoglobin 32.0 pg Mean Corpuscular Hemoglobin Concent 33.2 g/dl RDW Standard Deviation 60.8 fL RDW Coefficient of Variation 17.5 % Platelet Count 162 K/uL Mean Platelet Volume 10.9 fL Sodium Level 144 mmol/L Potassium Level 3.4 mmol/L Chloride Level 113 mmol/L Carbon Dioxide Level 21 mmol/L Anion Gap 10.0 mmol/L Blood Urea Nitrogen 29 mg/dl Creatinine 0.98 mg/dl Est Creatinine Clear Calc Drug Dose 45.6 ml/min Estimated GFR () 80.0 Estimated GFR (Non- 69.0 BUN/Creatinine Ratio 29.7 Random Glucose 136 mg/dl Calcium Level 7.7 mg/dl Assessment & Plan Adenopathy once again will need to be biopsied. I do worry that he may drift through and not return to our clinic. I've asked our clinic to arrange for a follow-up in about 2 weeks. We will sign off for now then. Please reconsult if necessary.
[2016-05-23] MEDS: CALCIUM 600MG + VIT D 400 IU TAB PO SCH (11:05)
--- NOTE | 2016-05-23 11:44 | Progress Note ---
Subjective Date of Service: May 23, 2016. Subjective Pt evaluation today including: conversation w/ patient, physical exam, chart review, lab review, review of studies, conversation w/ educational consultant, review of inpatient medication list Feeling a little bit better, was having's soft stool 4 times yesterday, this morning so far once time, no diarrhea No fever or chill, no abdominal pain, eating and voiding okay Review of Systems Constitutional: + fatigue, + weakness, No chills, No fever, No problem reported , No sweats, No weight loss Eyes: No diplopia, No discharge, No eye pain, No redness, No worsening of vision ENT: No dental problems, No hearing loss, No nasal symptoms, No sore throat, No tinnitus, No trouble swallowing, No unusual epistaxis Respiratory: No cough, No dyspnea at rest, No dyspnea on exertion, No hemoptysis, No shortness of breath, No sputum, No wheezing Cardiac: No PND, No chest pain, No claudication, No edema, No orthopnea, No palpitations Abdomen: No constipation, No diarrhea, No nausea, No pain, No vomiting Musculoskeletal: No calf pain, No joint pain, No muscle pain, No swelling Male : No dysuria, No hematuria, No incontinence, No nocturia more than once/ night, No slowing stream, No urinary frequency Neurologic: No balance problems, No memory loss, No numbness/tingling, No paralysis, No vertigo, No weakness Psychiatric: No anhedonism, No anxiety, No depression symptoms, No insomnia, No substance abuse Heme: No abnormal bleeding/bruising, No clotting problems, No night sweats, No swollen lymph nodes Endo: No excessive thirst, No excessive urination, No fatigue Skin: No bleeding, No color change, No itch, No new/changing skin lesions, No rash Objective Vital Signs Date Time Temp Pulse Resp B/P Pulse Ox O2 Delivery O2 Flow Rate FiO2 05/23/16 08:00 95 Room Air 05/23/16 07:34 36.4 70 20 130/69 95 Room Air 05/22/16 23:50 Room Air 05/22/16 23:20 36.7 65 18 119/65 94 Room Air 05/22/16 21:26 74 134/65 05/22/16 18:26 77 134/66 05/22/16 16:00 Room Air 05/22/16 15:25 36.9 69 18 139/68 98 Room Air 05/22/16 12:11 64 138/65 Physical Exam General Appearance: WD/WN, no apparent distress, + thin, + pertinent finding ( frail, mild pale) Eyes: normal inspection, PERRL, EOMI, sclerae normal ENT: normal ENT inspection, hearing grossly normal, pharynx normal Neck: supple, no adenopathy, thyroid normal, no JVD, no carotid bruits, trachea midline Respiratory/Chest: chest non-tender, lungs clear, normal breath sounds, no respiratory distress, no accessory muscle use Cardiovascular: regular rate, rhythm, no edema, no gallop, no JVD, no murmur Abdomen: normal bowel sounds, non tender, soft, no organomegaly, no pulsatile mass, + pertinent finding (stable in right groin area local looks good, no red or drainages) Extremities: normal range of motion, non-tender, normal inspection, no pedal edema, no calf tenderness, normal capillary refill, pelvis stable Neurologic/Psychiatric: hairspring adjuster II-XII nml as tested, no motor/sensory deficits, alert, normal mood/affect, oriented x 3 Skin: normal color, warm/dry, no rash Lymphatic: no adenopathy Laboratory Results Last 24 Hours Test 05/22/16 13:05 05/23/16 06:35 Magnesium Level 1.9 mg/dl 1.9 mg/dl White Blood Count 13.01 K/uL Red Blood Count 2.72 M/uL Hemoglobin 8.7 g/dL Hematocrit 26.2 % Mean Corpuscular Volume 96.3 fL Mean Corpuscular Hemoglobin 32.0 pg Mean Corpuscular Hemoglobin Concent 33.2 g/dl RDW Standard Deviation 60.8 fL RDW Coefficient of Variation 17.5 % Platelet Count 162 K/uL Mean Platelet Volume 10.9 fL Sodium Level 144 mmol/L Potassium Level 3.4 mmol/L Chloride Level 113 mmol/L Carbon Dioxide Level 21 mmol/L Anion Gap 10.0 mmol/L Blood Urea Nitrogen 29 mg/dl Creatinine 0.98 mg/dl Est Creatinine Clear Calc Drug Dose 45.6 ml/min Estimated GFR () 80.0 Estimated GFR (Non- 69.0 BUN/Creatinine Ratio 29.7 Random Glucose 136 mg/dl Calcium Level 7.7 mg/dl Assessment and Plan 85 y/o male with a history of HTN, HLD, anemia, BPH, h/o CVA who presents s/p PEVAR repair of AAA with Dr. Morales on 05/15/2016 for medical management. AAA repair--POD #8, continue stable For the pain control, PT OT, DVT prophylaxis, discharge plan will be per primary team, patient still has pushpa in the groin area, this will be taking care by primary team Sigmoid diverticulitis, has been stable C. difficile colitis which was identified on 05/22/2016, diarrhea is improving and slowing down Has been already on Flagyl 500 mg PO TID and ciprofloxacin 500 mg PO BID. Day # 6, total of 14 day course, we'll continue -Continue Florastor 250 mg PO qd Acute on chronic anemia stable Mesenteric Lymphadenopathy -CT chest shows axillary, cervical and mediastinal lymphadenopathy favoring a lymphoma -No B symptoms over the past few months -Consulted heme/onc appreciate recs: recommend biopsy in near future as an outpatient -Pt does not want biopsy now, refusing to have general surgery consulted to talk about future exploratory laparoscopy/biopsy A-fib--developed a-fib while in ICU, currently in SR -Continue Lopressor 25 mg PO BID and amiodarone 200 mg PO TID, patient is not on any blood thinner Will discussed with patient with risk and benefit HTN HLD BPH H/o CVA all condition is stable, continue current medication DVT prophylaxis -Enoxaparin 40 mg SC q24h -RYAN Bell Code Status FULL RESUSCITATION STATUS Dispo will be per primary team, I feel medically he is ready to be discharged I told patient to follow-up with PCP in 1 week Continued [facility] stay due to: home environment unsafe for pt Discharge planning: fdc facility
[2016-05-23 13:24] LABS: FERRITIN 360.7 ng/ml (8.0-388.0)
[2016-05-23 15:13] VITALS: BP 131/80; PULSE 73; TEMP 36.5; O2SAT 97
--- NOTE | 2016-05-23 15:46 | Progress Note ---
Progress Note Date of Service: May 23, 2016. Subjective 85 yo m s/p PEVAR and R to L fem fem BPG, seen in f/u today. Pt states feeling ok today, fatigued. Denies any new complaints. Objective Vital Signs Vital Signs Past 12 Hours Date Time Temp Pulse Resp B/P Pulse Ox O2 Delivery O2 Flow Rate FiO2 05/23/16 15:13 36.5 73 16 131/80 97 Room Air 05/23/16 08:00 95 Room Air 05/23/16 07:34 36.4 70 20 130/69 95 Room Air Exam CONST: A&O x4, NAD, healthy for age appearing male CHEST: RRR, lungs decreased, but ctab ABD: soft, mildly tender over pelvic area/fem fem tunnel and BL flanks, old ecchymosis noted abd and BL flanks, + bs x 4 Quad EXT: BL groin incision C/D/I with pushpa. + local tenderness and old ecchymosis. + distal doppler pulse Intake & Output 8-Hour Column 05/22/16 05/23/16 05/23/16 16:00 00:00 08:00 Intake Total 300 ml 120 ml Output Total 0 ml Balance 300 ml 120 ml 0 ml 24-Hour Column 05/23/16 08:00 Intake Total 420 ml Output Total 0 ml Balance 420 ml Laboratory and Microbiology Results Past 24 Hours Test 05/23/16 06:35 05/23/16 12:28 Range/Units White Blood Count 13.01 4.8-10.8 K/uL Red Blood Count 2.72 4.7-6.1 M/uL Hemoglobin 8.7 14.0-18.0 g/dL Hematocrit 26.2 42-52 % Mean Corpuscular Volume 96.3 80-100 fL Mean Corpuscular Hemoglobin 32.0 25-34 pg Mean Corpuscular Hemoglobin Concent 33.2 32-36 g/dl RDW Standard Deviation 60.8 36.4-46.3 fL RDW Coefficient of Variation 17.5 11.5-14.5 % Platelet Count 162 130-400 K/uL Mean Platelet Volume 10.9 7.4-10.4 fL Sodium Level 144 136-145 mmol/L Potassium Level 3.4 3.5-5.1 mmol/L Chloride Level 113 98-107 mmol/L Carbon Dioxide Level 21 21-32 mmol/L Anion Gap 10.0 3-11 mmol/L Blood Urea Nitrogen 29 7-18 mg/dl Creatinine 0.98 0.60-1.40 mg/dl Est Creatinine Clear Calc Drug Dose 45.6 ml/min Estimated GFR () 80.0 Estimated GFR (Non- 69.0 BUN/Creatinine Ratio 29.7 10-20 Random Glucose 136 70-99 mg/dl Calcium Level 7.7 8.5-10.1 mg/dl Magnesium Level 1.9 1.8-2.4 mg/dl Iron Level 51 35-175 mcg/dl Total Iron Binding Capacity 146 250-450 mcg/dl Ferritin 360.7 8.0-388.0 ng/ml Vitamin B12 Level 538 211-911 pg/mL Folate 6.72 >5.38 ng/mL ASSESSMENT and PLAN: s/p PEVAR and R to L fem fem BPG AAA C Diff infection Post op anemia Pt doing generally well post op. Hgb slightly lower today. Start Iron. OK for d/c to rehab when bed available.
[2016-05-23] MEDS: FERROUS SULFATE 325 MG TAB PO SCH (18:28)
[2016-05-23 18:30] VITALS: BP 171/65; PULSE 76
[2016-05-23] MEDS: PRAVASTATIN SOD 20 MG TAB PO SCH (21:59)
[2016-05-23 22:00] VITALS: BP 152/69; PULSE 75
[2016-05-23] MEDS: CLOPIDOGREL BISULFATE 75 MG TAB PO SCH (22:03)
[2016-05-23 23:00] VITALS: BP 135/71; PULSE 65; TEMP 36.9; O2SAT 98
[2016-05-24 05:43] LABS: HEMATOCRIT 25.5 % (42-52); MEAN CORPUSCULAR HEMOGLOBIN 32.7 pg (25-34); MEAN CORPUSCULAR HGB CONC 33.7 g/dl (32-36); MEAN PLATELET VOLUME 10.6 fL (7.4-10.4); PLATELET COUNT 177 K/uL (130-400); RED BLOOD COUNT 2.63 M/uL (4.7-6.1); WHITE BLOOD COUNT 13.69 K/uL (4.8-10.8)
[2016-05-24] MEDS: METRONIDAZOLE 500 MG TAB PO SCH ×2 (06:15→13:43)
[2016-05-24] MEDS: OXYCODONE/ACETAMINOPHEN 5-325 TAB PO PRN (06:16)
[2016-05-24 06:21] LABS: BUN/CREATININE RATIO 31.5 (10-20); CALCIUM 7.5 mg/dl (8.5-10.1); MAGNESIUM 1.9 mg/dl (1.8-2.4); POTASSIUM 3.7 mmol/L (3.5-5.1)
[2016-05-24 07:00] VITALS: BP 156/73; PULSE 67; TEMP 36.7; O2SAT 96
[2016-05-24 08:01] VITALS: BP 151/68; PULSE 70; TEMP 36.8; O2SAT 96
[2016-05-24] MEDS: AMIODARONE 200 MG TAB PO SCH ×2 (08:30→12:47)
[2016-05-24] MEDS: FERROUS SULFATE 325 MG TAB PO SCH (08:30)
[2016-05-24] MEDS: SACCHAROMYCES BOUL (FLORASTOR) 250 MG CAP PO SCH (09:06)
[2016-05-24] MEDS: METOPROLOL TARTRATE 25 MG TAB PO SCH (09:06)
[2016-05-24] MEDS: TAMSULOSIN HCL 0.4 MG CAP PO SCH (09:06)
[2016-05-24] MEDS: CHOLECALCIFEROL 1000 INTER.UNIT TAB PO SCH (09:07)
[2016-05-24] MEDS: CIPROFLOXACIN 500 MG TAB PO SCH (09:07)
[2016-05-24] MEDS: ASPIRIN 81 MG ECTAB PO SCH (09:07)
[2016-05-24] MEDS: ENOXAPARIN 40 MG/0.4 ML SYR SQ SCH (09:08)
--- NOTE | 2016-05-24 09:45 | Progress Note ---
Progress Note Date of Service: May 24, 2016. Subjective 85 yo m s/p PEVAR and R-L fem fem BPG, seen in f/u today. Pt states feeling ok. Admits mild pain in incisions and back/flank area, but improving. Denies any new complaints. Objective Vital Signs Vital Signs Past 12 Hours Date Time Temp Pulse Resp B/P Pulse Ox O2 Delivery O2 Flow Rate FiO2 05/24/16 08:01 36.8 70 18 151/68 96 Room Air 05/24/16 07:00 36.7 67 19 156/73 96 Room Air 05/24/16 00:15 Room Air 05/23/16 23:00 36.9 65 18 135/71 98 Room Air 05/23/16 22:00 75 152/69 Exam CONST: A&O x4, NAD, healthy for age appearing male CHEST: RRR, lungs decreased, but ctab ABD: soft, mildly tender over pelvic area/fem fem tunnel and BL flanks, old ecchymosis noted abd and BL flanks, + bs x 4 Quad EXT: BL groin incision C/D/I with pushpa. + local tenderness and old ecchymosis. + distal doppler pulse. palpable DP LLE and RLE. Intake & Output 8-Hour Column 05/23/16 05/24/16 05/24/16 16:00 00:00 08:00 Intake Total 480 ml Balance 480 ml 24-Hour Column 05/24/16 08:00 Intake Total 480 ml Balance 480 ml Laboratory and Microbiology Results Past 24 Hours Test 05/23/16 12:28 05/23/16 15:30 05/24/16 05:15 Range/Units Iron Level 51 35-175 mcg/dl Total Iron Binding Capacity 146 250-450 mcg/dl Ferritin 360.7 8.0-388.0 ng/ml Vitamin B12 Level 538 211-911 pg/mL Folate 6.72 >5.38 ng/mL Stool Occult Blood POSITIVE NEGATIVE White Blood Count 13.69 4.8-10.8 K/uL Red Blood Count 2.63 4.7-6.1 M/uL Hemoglobin 8.6 14.0-18.0 g/dL Hematocrit 25.5 42-52 % Mean Corpuscular Volume 97.0 80-100 fL Mean Corpuscular Hemoglobin 32.7 25-34 pg Mean Corpuscular Hemoglobin Concent 33.7 32-36 g/dl RDW Standard Deviation 61.0 36.4-46.3 fL RDW Coefficient of Variation 17.4 11.5-14.5 % Platelet Count 177 130-400 K/uL Mean Platelet Volume 10.6 7.4-10.4 fL Sodium Level 145 136-145 mmol/L Potassium Level 3.7 3.5-5.1 mmol/L Chloride Level 115 98-107 mmol/L Carbon Dioxide Level 22 21-32 mmol/L Anion Gap 8.0 3-11 mmol/L Blood Urea Nitrogen 31 7-18 mg/dl Creatinine 1.00 0.60-1.40 mg/dl Est Creatinine Clear Calc Drug Dose 44.7 ml/min Estimated GFR () 78.1 Estimated GFR (Non- 67.4 BUN/Creatinine Ratio 31.5 10-20 Random Glucose 122 70-99 mg/dl Calcium Level 7.5 8.5-10.1 mg/dl Magnesium Level 1.9 1.8-2.4 mg/dl ASSESSMENT and PLAN: s/p PEVAR and R-L fem fem BPG AAA post op anemia C diff infection Pt doing well post op. Ok for d/c to rehab when placement available. Will continue flagyl and cipro at discharge per medicine.
[2016-05-24 11:17] VITALS: O2SAT 96
[2016-05-24] MEDS: LISINOPRIL 40 MG TAB PO SCH (11:20)
[2016-05-24] MEDS ORDERED: FRRS300 PO (12:06)
[2016-05-24] MEDS ORDERED: OXYC-57 PO (12:06)
[2016-05-24] MEDS ORDERED: CPR500 PO (12:06)
[2016-05-24] MEDS ORDERED: SACC250C3 PO (12:06)
[2016-05-24] MEDS ORDERED: MTR500 PO (12:06)
--- NOTE | 2016-05-24 12:10 | Discharge Instructions ---
Discharge Instructions Admission Reason for Admission: Abdominal Aortic Aneurysm (Pseudo) Discharge Discharge Diagnosis / Problem: s/p endovascular aneurysm repair and femoral bypass, AAA,C diff infection, Discharge Goals Goal(s): Therapeutic intervention Activity Recommendations Activity Limitations: per Instructions/Follow-up section Lifting Limitations: no more than 10 pounds Exercise/Sports Limitations: gradually increase as tolerated May Resume Sexual Activity: when tolerated Driving or Machine Use: resume in 1 week May shower, no bathing. . Instructions / Follow-Up Instructions / Follow-Up ADDITIONAL DX: 1. lumbar compression fx 2. lymphadenopathy 3. Paroxysmal A fib with RVR(short period post op only) Pt to have the following Follow Up appt: 1. with Dr Morales in office in 1 week for staple removal. Call [phone] for appt. 2. PCP within [address] Garcia/Dr Bearden, Heme/Onc, in 2 weeks 4. Cardiology, with [facility], in 2 weeks. Pt discussed with Hospitalist team regarding lumbar compression fx noted on CT scan and appropriateness of TLSO brace. TLSO brace can be applied if it does not compress pt's cross femoral bypass at pelvis. SPECIAL CARE INSTRUCTIONS: Medications: * Continue to take your medications as directed. Incision/Puncture Site Care: * You will have an incision or puncture in each of your groins. Liquid glue will be used to seal your incisions/puncture site. This will lift off as the incisions/ puncture sites heal. * If Liquid glue is not used, there will be small dressings covering your incisions. After you get home, you may remove the dressings and shower - allowing the warm soapy water to run over it. * Be sure to dry the sites well and keep them dry. * DO NOT SOAK IN A TUB/POOL/etc. UNTIL ALL SURGICAL SITES ARE HEALED. DO NOT REMOVE THE GLUE UNTIL THE INCISIONS HEAL. Restrictions: * Limit yourself to parole officer activity for the first week. * You may walk and go up and down steps. * Avoid excessive bending or movement at the level of the incisions or punctures. Risks and Possible Complications: * Infection/Drainage/Bleeding - Drainage or bleeding from the incisions/ puncture site should be minimal. If you have excessive bleeding or drainage, call our office ([phone]) right away. * Pain/Numbness - You may experience some mild pain or soreness at your incision sites. You may also have some numbness around the incisions or into the insides of your thighs. Bruising is normal and should resolve within 2 weeks. * Changes in Appetite or Bowel Habits - Mostly related to anesthesia and pain medication, some patients have reported decreased appetite and/or problems with constipation. These symptoms usually improve over a few weeks. Remembering to take an [id number] stool softener, as directed, will help you to avoid constipation. Call our office and seek emergent treatment if you develop: * Fever or chills * Have a temperature greater than 101 degrees F * Any redness or purulent drainage from your incisions or punctures * Severe abdominal, chest or back pain SKIN IRRITATION: * You may experience some redness and/or swelling in the area where radiation was administered. If any skin irritation occurs, please contact your family physician. You will be receiving a call from the Vascular Surgery Nurse after you are discharged. FOLLOW UP VISIT: It is important for you to keep your follow up appointments with your medical provider. Keep any scheduled doctor appointments. Current Hospital Diet Patient's current hospital diet: AHA Diet (Heart Healthy) Discharge Diet Recommended Diet: AHA Diet (Heart Healthy) Fluid Restriction: None Procedures Procedures Performed: Percutaneous Endovascular Anerysm Repair, Placement of Second Mainbody, Insertion of Iliac Plug Left Iliac, Cross Femoral Bypass Pending Studies Studies pending at discharge: no Laboratory Results Hemoglobin A1c Test 05/16/16 05:00 Range/Units Estimated Average Glucose 120 mg/dl Hemoglobin A1c 5.8 H 4.5-5.6 % Medical Emergencies . Who to Call and When: Medical Emergencies: If at any time you feel your situation is an emergency, please call 911 immediately. . Non-Emergent Contact Non-Emergency issues call your: Primary Care Provider . "Provider Documentation" section prepared by Sweetie Billingsley. VTE Core Measure Inpt VTE Proph given/why not?: Enoxaparin (Lovenox)[facility] Drug Monitoring Program Search Results: patient reviewed within database, no issues identified
[2016-05-24] MEDS ORDERED: LPR25 PO (12:33)
[2016-05-24] MEDS ORDERED: VLTG EXT (12:33)
[2016-05-24] MEDS ORDERED: MCLIN (12:33)
[2016-05-24] MEDS ORDERED: LDDP5 TD (12:33)
--- NOTE | 2016-05-24 12:39 | Hospitalist Progress Note ---
Hospitalist Progress Note Date of Service May 24, 2016. (Belen Noriega ., RITA) Subjective Pt evaluation today including: conversation w/ patient, physical exam, chart review, lab review, conversation w/ showroom consultant (Spoke to Sweetie Billingsley PA-C) , review of inpatient medication list Pain: No pain currently PO Intake: Tolerating PO diet Voiding: no voiding problems Patient reports feeling better. He states that he is still weak and fatigued, but that seems to be improving. He currently denies any back or abdominal pain as he had just received some pain medication prior to my examination. He does state that his right knee feels numb but denies any pain or loss of range of motion. He had pain in the right knee the other day after ambulating in the hallway, however. The patient denies fevers, chills, sweats, chest pain, palpitations, claudication, cough, wheezing, shortness of breath, nausea, vomiting, abdominal pain, dysuria, hematuria, urinary retention, and paralysis. Additional Comments: See HPI for pertinent positives and negatives. All other systems reviewed and negative. (Belen Noriega ., RITA) Objective Vital Signs Date Time Temp Pulse Resp B/P Pulse Ox O2 Delivery O2 Flow Rate FiO2 05/24/16 11:17 96 Room Air 05/24/16 08:01 36.8 70 18 151/68 96 Room Air 05/24/16 07:20 Room Air 05/24/16 07:00 36.7 67 19 156/73 96 Room Air 05/24/16 00:15 Room Air 05/23/16 23:00 36.9 65 18 135/71 98 Room Air 05/23/16 22:00 75 152/69 05/23/16 18:30 76 171/65 05/23/16 16:00 Room Air 05/23/16 15:13 36.5 73 16 131/80 97 Room Air (Belen Noriega PA-C) Physical Exam General Appearance: WD/WN, no apparent distress, + thin Eyes: normal inspection, PERRL, EOMI ENT: normal ENT inspection, hearing grossly normal, pharynx normal Neck: supple, no JVD, trachea midline Respiratory/Chest: lungs clear, normal breath sounds, no respiratory distress Cardiovascular: regular rate, rhythm, no gallop, no murmur Abdomen: normal bowel sounds, non tender, soft Extremities: normal range of motion, non-tender, normal inspection, no pedal edema, + pertinent finding (right knee non-tender to palpation) Neurologic/Psychiatric: alert, normal mood/affect, oriented x 3, + sensory deficit (reports decreased sensation over right knee) Skin: normal color, warm/dry, no rash (Belen Noriega ., ROSIO-C) Laboratory Results Last 24 Hours Test 05/23/16 15:30 05/24/16 05:15 Stool Occult Blood POSITIVE White Blood Count 13.69 K/uL Red Blood Count 2.63 M/uL Hemoglobin 8.6 g/dL Hematocrit 25.5 % Mean Corpuscular Volume 97.0 fL Mean Corpuscular Hemoglobin 32.7 pg Mean Corpuscular Hemoglobin Concent 33.7 g/dl RDW Standard Deviation 61.0 fL RDW Coefficient of Variation 17.4 % Platelet Count 177 K/uL Mean Platelet Volume 10.6 fL Sodium Level 145 mmol/L Potassium Level 3.7 mmol/L Chloride Level 115 mmol/L Carbon Dioxide Level 22 mmol/L Anion Gap 8.0 mmol/L Blood Urea Nitrogen 31 mg/dl Creatinine 1.00 mg/dl Est Creatinine Clear Calc Drug Dose 44.7 ml/min Estimated GFR () 78.1 Estimated GFR (Non- 67.4 BUN/Creatinine Ratio 31.5 Random Glucose 122 mg/dl Calcium Level 7.5 mg/dl Magnesium Level 1.9 mg/dl (Belen Noriega ., PA-C) Assessment and Plan 85 y/o male with a history of HTN, HLD, anemia, BPH, h/o CVA who presents s/p PEVAR repair of AAA with Dr. Morales on 05/15 for medical management. AAA repair--POD #9 -Pain management per primary team Sigmoid diverticulitis -Continue Flagyl 500 mg PO TID and ciprofloxacin 500 mg PO BID. Day # 7, total of 14 day course Diarrhea--persistent for days -C. diff positive, stool cultures negative for shiga toxin and salmonella -Pt already on Flagyl for diverticulitis, continue for 14 day course -Continue Florastor 250 mg PO qd Back pain--persistent, CT showed acute/subacute compression fracture at T10 -Lidoderm patch TD qd x 12 hours, then remove -Calcitonin nasal spray 1 spray in 1 nostril, alternate nostrils daily -Try fitting for TLSO brace at [facility]--may use if it does not compress left iliac cross femoral bypass Arthritis of right knee -Voltaren gel TD QID to right knee Acute on chronic anemia -Likely acute blood loss anemia secondary to surgery -Transfused on 2u pRBC 2.3.17 -Hgb stable at 8.6, continue to monitor -CT abdomen showed no intra abdominal bleed Mesenteric Lymphadenopathy -CT chest shows axillary, cervical and mediastinal lymphadenopathy favoring a lymphoma -No B symptoms over the past few months -Consulted heme/onc appreciate recs: recommend biopsy in near future as an outpatient -Pt does not want biopsy now, refusing to have general surgery consulted to talk about future exploratory laparoscopy/biopsy A-fib--developed a-fib while in ICU, currently in SR -Continue Lopressor 25 mg PO BID and amiodarone 200 mg PO TID HTN--stable -Continue lisinopril 40 mg PO qd HLD -Continue pravastatin 20 mg PO qd BPH -Continue tamsulosin 0.4 mg PO qd H/o CVA -Continue ASA and Plavix DVT prophylaxis -Enoxaparin 40 mg SC q24h -RYAN [place] and [facility] Code Status -Level I, FULL RESUSCITATION STATUS Dispo -No beds available in [place], where pt lives. Pt agreeable to [facility], can accept at 1500 today -Pt stable for discharge to rehab facility from medical standpoint (Belen Noriega ., RITA) Attending Attestation: Pt seen/examined, chart reviewed, and care plan d/w ROSIO Noriega. I agree with the leigh components of her documentation except - amiodarone will be ONCE daily. Pt c/o mid-lower back pain as well as right knee pain and "numbness." Denies shortness of breath, chest pain, abd pain. Vitals - afebrile, VSS otherwise gen - NAD, thin neck - no JVD heart - RRR, s1, s2 lungs - CTA b/l back - tender lower thoracic vertebral area in the midline with palpation; l- spine w/o tenderness abd - soft, NT ext - pushpa b/l groin clean, no drainage musculo - right knee - crepitus with passive ROM; minimal effusion; no redness or warmth labs - Hb 8.6 Cr 1 A/P: 1. recent PAF - resolved, no recurrences. Drop the amiodarone down to 200mg once daily. F/u with [facility] as outpatient in 2-3 weeks to see if this med is needed long-term. 2. thoracic compression fracture, presumed osteoporotic - add lidoderm patches ; add calcitonin nasal spray; ultram or norco prn. Consider TLSO brace, if ok with vascular. 3. right knee pain - has at the very least OA; I don't see signs of gout or pseudogout; could he have element of neuropathy extending down the leg to the knee? voltaren gel QID to right knee. other plans per Ms. Noriega's note. from medical standpoint can d/c to rehab recommend repeat labs in about 5 days for stability Kwesi LOVE MD (Torres Love MD)
[2016-05-24] MEDS: CALCIUM 600MG + VIT D 400 IU TAB PO SCH (12:47)
[2016-05-24] MEDS ORDERED: CALCITONIN SALMON NA 200 IU/AC 3.7 ML BTL SCH (13:00)
[2016-05-24] MEDS ORDERED: DICLOFENAC SOD 1% GEL 100 GM TUBE EXT SCH (13:00)
[2016-05-24] MEDS ORDERED: LIDODERM (LIDOCAINE) PATCH 5% TD SCH (13:00)
[2016-05-24] MEDS ORDERED: CRD200 PO (13:36)
[2016-05-24 14:18] VITALS: BP 151/68; PULSE 70; TEMP 36.8; O2SAT 96
[2016-05-24 15:36] VITALS: BP 123/72; PULSE 130; TEMP 36.6; O2SAT 94
[2016-05-24 15:40] VITALS: PULSE 84
--- NOTE | 2016-06-04 09:23 | DISCHARGE SUMMARY ---
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 DISCHARGE DIAGNOSES: 1. Status post percutaneous endovascular aneurysm repair in right to left femoral to femoral artery bypass. 2. Abdominal aortic aneurysm. 3. Clostridium diff infection. 4. Lumbar compression fracture. 5. Lymphadenopathy. 6. Paroxysmal atrial fibrillation with rapid ventricular response. DISCHARGE CONDITION: Stable. CONSULTATIONS IN THE HOSPITAL: Included: 1. Hematology/oncology. 2. Critical care. 3. Hospitalist. PROCEDURES IN THE HOSPITAL: Include percutaneous endovascular aneurysm repair and right to left femoral to femoral artery bypass graft performed on 05/15/2016 without any significant complications and an EBL of 250 mL. HISTORY OF PRESENT ILLNESS: Mr. 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 He was recommended to undergo repair endovascularly. The procedure, risks, benefits and alternatives were discussed at length with the patient. He expressed understanding and agreement to proceed. HOSPITAL COURSE: Mr. Holcomb was admitted 05/15/2016 after undergoing his percutaneous endovascular aneurysm repair and fem-fem bypass. He was noted to have some postop anemia which was corrected with a total of 3 units of PRBC. A postoperative evaluation of his surgical sites did not demonstrate any active bleeding in his abdomen or pelvic area. A CT scan that was performed postoperatively was found to have some lymphadenopathy and was recommended to have a consultation with oncology due to concerning appearance of the lymphadenopathy. The patient was also followed by medicine due to other multiple medical problems and did have some diarrhea which was concerning. Postoperatively he was tested for C. diff which was positive. There had been some mild colitis demonstrated on his CT scan for which he had already been started on Flagyl and Cipro treatment and this was continued. Due to the patient requiring somewhat more extensive surgery that originally planned he remained in the hospital and due to his deconditioned state was recommended to be discharged to a rehab center where he can regain his strength before returning home as he does not have regular personal lines underwriter's there. The patient was agreeable and was to be discharged to [facility] for rehabilitation. Additionally, the patient was noted to have a short period of time in atrial fibrillation with rapid ventricular rate which occurred the day of surgery and resolved without any further recurrence. PHYSICAL EXAMINATION: VITAL SIGNS: On day of discharge his vital signs were as follows: Temperature of 36.6, pulse of 70, respiratory rate of 18, blood pressure of 123/72, pulse oximetry of 96% on room air. CONSTITUTIONAL: The patient is a mildly chronically ill appearing elderly male in no acute distress. He was ambulating with a walker. HEAD: Normocephalic and atraumatic. EYES: EOMI. EARS, NOSE, THROAT EXAMINATION: Demonstrated no hearing loss, rhinorrhea or pharyngeal erythema. NECK: Supple, nontender with a midline trachea without masses or crepitus. LUNG EXAMINATION: Demonstrated no dyspnea. They were clear to auscultation bilaterally. CARDIOVASCULAR EXAMINATION: Demonstrated nondisplaced apical impulse with a regular rate and rhythm without murmurs, lifts, heaves, thrills or gallops. Peripheral pulses are full and equal in all extremities unless otherwise noted, specifically they were normal in his carotid, brachial, radial and femoral pulses. Bilateral lower extremity distal pulses were +1 with brisk capillary refill and no sign of distal ischemia. ABDOMEN: Soft, nontender with normoactive bowel sounds in all 4 quadrants without guarding or rebound. There is some mild tenderness over his bilateral flanks where there is some ecchymosis, which is old and soft as well as some tenderness over his cross femoral bypass tunnel and some old ecchymosis there as well. EXTREMITIES: Bilateral upper extremities demonstrate no cyanosis, edema, clubbing, varicosities or ulcers. His bilateral groin incisions are well approximated and healing appropriately. There are pushpa in place. The wounds are clean, dry, and intact. He has some mild local ecchymosis and edema which is decreased and his legs do not demonstrate significant edema. There are no ulcerations distally. NEUROLOGIC: The patient has grossly intact cranial nerves and grossly intact sensation and appears to be moving all extremities equally without any focal deficits. DIET UPON DISCHARGE: Should be a low-cholesterol AHA diet. MEDICATIONS: Reconciled on the chart and are as per his discharge instructions. Followup should be with Dr. Morales within 2 weeks for evaluation and removal of his pushpa, with his PCP within 2 weeks, with hematology/oncology in about 2 weeks and cardiology with the [facility] in about 2 weeks. The patient was advised to call our office with any questions or concerns. BRANDON
--- NOTE | 2016-06-14 21:34 | OPERATIVE REPORT ---
DATE OF OPERATION: 05/15/2016 PREOPERATIVE DIAGNOSIS: Abdominal aortic aneurysm. POSTOPERATIVE DIAGNOSIS: Same. PROCEDURES: Bilateral cannulation of the aorta, insertion of aortic endograft with 1 docking limb, insertion of a left iliac plug 18 mm and cross femoral bypass. SURGEON: Dr. Morales. ENTRY LEVEL PARALEGAL: Sweetie Billingsley PA-C. ANESTHETIC: General/MAC. PROCEDURE INDICATIONS: The patient is an 85-year-old gentleman with enlarging abdominal aortic aneurysm. Repair was recommended. He was an endovascular candidate. We did go over the risks, options and benefits and agreed to have this procedure. He understood the risks, options and benefits and agreed to have this procedure. PROCEDURE IN DETAIL: The patient was taken to the operating room and placed in supine position. After the abdomen and groins were prepped and draped in a standard sterile manner, local anesthetic was administered. Both femoral arteries were then punctured. A 5-Macanese sheath was inserted on both sides. Hand injection was then performed, which showed both puncture sites to be the anterior common femoral arteries. An 0.035 wire was inserted in both sides and a Kumpe catheter was then used to exchange the wires for a stiffer wire. Prior to doing this, both groins were preclosed with Perclose devices. This was done without difficulty. Two were used on each side. Once the stiffer wires were used, the left side sheath was exchanged to a 12 Macanese sheath. The right side was exchanged to an 18-Macanese. Once this was done, a 23 x 12 x 16 graft was inserted through the right groin. A pigtail was inserted through the left. Arteriography was performed. This was done to danilo the renal arteries. Once they were marked, the graft was deployed. This was confirmed with another injection. The top of the graft was just below the renal arteries. At that point, the hooks were deployed. The graft had been released down to the gate. We then did multiple attempts to cannulate the gate from the left side. It was crimped at the lower portion. Multiple wires and multiple catheters were used. None were successful in cannulating the gate. At that point, due to the patient's age, we decided to place another graft and do a cross femoral bypass. A 23 x 12 x 14 graft was then inserted through the right groin. It was placed on an 180-degree rotation from the previous graft and deployed at the same level of the graft. Once this was done, the Q50 balloon was inserted and the graft was dilated through its entirety. Next, a 6-Macanese destination was inserted through the left groin. We then deployed an 18-mm Amplatzer plug at the common iliac artery in the midportion. A pigtail was inserted through right side. An angiogram was then done at that point, which showed no evidence of endoleak. At that point, both groins were cut down, exposing the common femoral arteries on both sides with the sheath still in place. The arteries were then clamped and sheaths removed from both sides. A longitudinal arteriotomy was done on the arteries on both sides. They were of good caliber with mild plaque present. An 18 mm Propaten Gilliam graft was then brought to the operative field. It was ring. This was passed through the subcutaneous total suprapubically from one groin to another. The donor site was then done first. The graft was beveled and end-to-side anastomosis was accomplished to the right common femoral artery using a running CV5 Gilliam-Magnus suture. Once this was completed, clamps were placed on the graft and circulation restored to the right leg. The graft was then trimmed the appropriate length and beveled and the anastomosis of the left groin was done using a running CV5 Gilliam-Magnus suture again in the usual vascular fashion. Prior to completing this closure, backbleeding and forward bleeding was allowed to occur and the final few sutures were placed and securely tied. Clamps were then removed. Excellent flow was seen in the left leg also. Adequate hemostasis was then noted in both groins. Wounds were then closed in the usual fashion using running 2-0 Vicryl for the femoral sheath, 3-0 Vicryl running suture for the subcutaneous layer and pushpa for the skin. Sterile dressings were applied to the groins. The patient left the operating room in satisfactory condition and tolerated the procedure well. Sweetie Billingsley assisted due to lack of resident availability. I attest to the content of the Intraoperative Record and any orders documented therein. Any exceptio ns are noted below.
== END 2016-05-24 17:50 | DRG 269 ==
LOC: ENRESERVDT → ENRESERVTM → C.ACU 05:57 → UNDOADMIN 12:13 → C.MSICU 12:13 → C.2T 05-17 21:16 → C.MSW 05-20 13:19 → C.2T 05-20 13:19
PROVIDERS: ADMIT Surgery Vascular Surgery; ATTEND Surgery Vascular Surgery
PROC: 04V03DZ Restriction of Abdominal Aorta with Intraluminal Device, Percutaneous Approach (ICD-10-PCS; principal; 2016-05-15 08:00)
PROC: 04VD3DZ Restriction of Left Common Iliac Artery with Intraluminal Device, Percutaneous Approach (ICD-10-PCS; principal; 2016-05-15 08:00)
PROC: 041 Lower Arteries, Bypass (ICD-10-PCS; principal; 2016-05-15 08:00)
DX: I71.4 Abdominal aortic aneurysm, without rupture (principal); D62 Acute posthemorrhagic anemia; K57.32 Diverticulitis of large intestine without perforation or abscess without bleeding; C85.90 Non-Hodgkin lymphoma, unspecified, unspecified site; A04.7 Enterocolitis due to Clostridium difficile; M80.08XA Age-related osteoporosis with current pathological fracture, vertebra(e), initial encounter for fracture; Z91.041 Radiographic dye allergy status; Z79.82 Long term (current) use of aspirin; Z79.899 Other long term (current) drug therapy; Z79.02 Long term (current) use of antithrombotics/antiplatelets; Z86.73 Personal history of transient ischemic attack (TIA), and cerebral infarction without residual deficits; I10 Essential (primary) hypertension; Z82.49 Family history of ischemic heart disease and other diseases of the circulatory system; Z80.9 Family history of malignant neoplasm, unspecified; Z84.1 Family history of disorders of kidney and ureter; N40.1 Benign prostatic hyperplasia with lower urinary tract symptoms; R32 Unspecified urinary incontinence; Z88.8 Allergy status to other drugs, medicaments and biological substances; R39.11 Hesitancy of micturition; K59.00 Constipation, unspecified; E78.5 Hyperlipidemia, unspecified; D69.6 Thrombocytopenia, unspecified; I45.10 Unspecified right bundle-branch block; I73.9 Peripheral vascular disease, unspecified; M17.11 Unilateral primary osteoarthritis, right knee; I48.0 Paroxysmal atrial fibrillation; L82.1 Other seborrheic keratosis

== ENCOUNTER → 2016-06-14 | Outpatient (CLI) | payer OTHER ==
[~2016-06-14] MED LIST changes: +CPR500 PO; +CRD200 PO; +FRRS300 PO; +LDDP5 TD; +LPR25 PO; +MCLIN; +MTR500 PO; +OXYC-57 PO; +SACC250C3 PO; -TRAM-10 PO; +VLTG EXT; -[UNRECOGNIZED DRUG - REMARK] SCH
[2016-06-14 17:59] LABS: ALT/SGPT 21 U/L (12-78); BLOOD UREA NITROGEN 40 mg/dl (7-18); BUN/CREATININE RATIO 33.5 (10-20); CALCIUM 9.1 mg/dl (8.5-10.1); CARBON DIOXIDE 28 mmol/L (21-32); CHLORIDE 106 mmol/L (98-107); GLUCOSE 127 mg/dl (70-99); POTASSIUM 4.4 mmol/L (3.5-5.1); SODIUM 140 mmol/L (136-145)
[2016-06-14 18:08] LABS: ALB/GLOB RATIO 1.1 (0.9-2); ALKALINE PHOSPHATASE 91 U/L (45-117); AST/SGOT 16 U/L (15-37); TOTAL IRON BINDING CAPACITY 195 mcg/dl (250-450)
[2016-06-14 18:24] LABS: HEMATOCRIT 34.5 % (42-52); MEAN CELL VOLUME 101.2 fL (80-100); MEAN CORPUSCULAR HEMOGLOBIN 33.4 pg (25-34); PLATELET COUNT 265 K/uL (130-400); RED BLOOD COUNT 3.41 M/uL (4.7-6.1); WHITE BLOOD COUNT 15.63 K/uL (4.8-10.8)
[2016-06-14 23:03] LABS: BASO % 0.1 %; BASO ABS # 0.02 K/uL (0-0.2); COMPLETE YES; EOS % 1.7 %; IG% 0.2 %; LYMPH % 61.2 %; LYMPH ABS # 9.56 K/uL (1.2-3.4); MONO % 6.6 %; NEUT % 30.2 %
--- NOTE | 2016-06-20 06:09 | CODING QUERY MEDICAL NECESSITY ---
SUPPORTING DIAGNOSIS NEEDED A supporting diagnosis is required for the test/procedure performed on this patient in order for us to be reimbursed by the patient's insurance. Please provide a supporting diagnosis for the following test/procedure listed below next to the test name along with your signature. *If there is no additional diagnosis for this patient that would support the following test/procedure please document that below next to the test/procedure. Test(s)/Procedure(s) that require a supporting diagnosis: * FOLATE LEVEL DIAGNOSIS: * VITAMIN B-12 LEVEL DIAGNOSIS: * DOS: 06/14/16 Provider Signature: Date: Thank you Arianna Caba Health Information Management Once completed, please kindly fax back to [phone] For questions please call [phone]
== END | disposition home or self-care (01) ==
LOC: C.LABMFLN 13:27
PROVIDERS: ATTEND Family Medicine
DX: I10 Essential (primary) hypertension (principal); C85.90 Non-Hodgkin lymphoma, unspecified, unspecified site; A04.7 Enterocolitis due to Clostridium difficile; I48.0 Paroxysmal atrial fibrillation; D64.9 Anemia, unspecified

== ENCOUNTER → 2016-07-15 | Outpatient (CLI) | payer OTHER ==
[~2016-07-15] MED LIST changes: +OPTIRAY 320 IV PRN
--- NOTE | 2016-07-15 11:35 | DIAGNOSTIC IMAGING REPORT ---
CTA ABDOMEN AND PELVIS HISTORY: Assess ABDOMINAL AORTIC ANEURYSM, W/OUT RUPTURE TECHNIQUE: Multiaxial CT images of the abdomen and pelvis were performed both before and after the intravenous demonstration of contrast to evaluate the abdominal aorta. Delayed postcontrast sequences were also obtained. COMPARISON STUDY: Abdomen and pelvis CT 05/17/2016. FINDINGS: The heart is mildly enlarged. Patchy bibasilar densities may represent atelectasis or pneumonia. Vertebroplasty at the moderate L4 compression fracture. Mild endplate compression fractures at L3 and L5 remain unchanged. Progressive acute on chronic moderate to severe compression fracture at T10. This demonstrates 2 mm of retropulsion and mild central canal narrowing at this location. Mild body wall edema. The liver, common pancreas, and adrenal glands are unremarkable. No hydronephrosis. A 1.5 cm left renal cyst. Hyperdense material within the gallbladder may be due to vicarious excretion of contrast. Bladder wall thickening is likely chronic. There are few bladder diverticula. The prostate gland remains enlarged. Extensive colonic diverticulosis. No bowel wall thickening or obstruction. The significant retroperitoneal, mesenteric, and pelvic lymphadenopathy is again noted. Dominant lymph node is seen within the left retroperitoneal space and measures 3.8 cm. Heterogeneous enhancement within the spleen. There is a tiny subcapsular hematoma within the lateral aspect of the spleen which measures 3 mm. In retrospect, this is likely stable from the prior study and is likely old. Mild focal narrowing at the origin of the celiac artery and superior mesenteric artery. Focal stenosis at the proximal bilateral renal arteries of approximately 75%. The patient is status post aortobiiliac stent graft repair of an abdominal aortic aneurysm. The left common iliac artery is occluded. There is reconstitution of flow at the bifurcation of the left external and internal iliac arteries. There is a femoral-femoral bypass graft which is patent. Small bilateral femoral hematomas are almost completely resolved. Aneurysm sac remains unchanged at 4.2 x 2.9 cm. No extravasation of contrast within the aneurysm sac to suggest a leak at this time. Significant improvement/resolution of the facet and superior to the sigmoid colon. IMPRESSION: 1. Aortobiiliac stent graft repair of an abdominal aortic aneurysm. The aneurysm sac remains unchanged and measures 4.2 x 2.9 cm. No evidence for endoleak at this time. 2. Extensive abdominal/pelvic lymphadenopathy which is highly suspicious for a lymphoproliferative disorder or metastatic disease. 3. Tiny old subcapsular splenic hematoma. 4. Progressive acute on chronic compression fracture at T10 which demonstrates minimal retropulsion and mild central canal narrowing. Additional compression fractures within the lumbar spine remain unchanged. 5. Approximately 75% stenosis within the proximal bilateral bilateral renal arteries. 6. The diverticulitis seen in the prior study has essentially resolved. 7. 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 Electronically signed by: Ken Cerna M.D. 07/15/2016 11:34 AM Dictated Date/Time: 07/15/2016 11:15 AM
== END | disposition home or self-care (01) ==
LOC: C.CTS 08:20
PROVIDERS: ATTEND Physician Assistant
DX: Z98.890 Other specified postprocedural states (principal); I71.4 Abdominal aortic aneurysm, without rupture

== ENCOUNTER → 2016-07-17 | Outpatient (CLI) | payer OTHER ==
[~2016-07-17] MED LIST changes: -OPTIRAY 320 IV PRN
[2016-07-17 17:52] LABS: ALT/SGPT 26 U/L (12-78); AST/SGOT 11 U/L (15-37); BLOOD UREA NITROGEN 43 mg/dl (7-18); BUN/CREATININE RATIO 32.7 (10-20); CARBON DIOXIDE 30 mmol/L (21-32); CHLORIDE 110 mmol/L (98-107); CHOLESTEROL 143 mg/dl (0-200); GLUCOSE 108 mg/dl (70-99); POTASSIUM 3.8 mmol/L (3.5-5.1); SODIUM 145 mmol/L (136-145); TRIGLYCERIDES 192 mg/dl (0-150); VERY LOW DENSITY LIPOPROT CALC 38 mg/dl
[2016-07-17 17:55] LABS: CHOLESTEROL/HDL RATIO 3.2; HDL CHOLESTEROL 45 mg/dl; LDL CHOLESTEROL CALCULATED 60 mg/dl
[2016-07-17 18:01] LABS: HEMATOCRIT 35.7 % (42-52); MEAN CELL VOLUME 106.3 fL (80-100); MEAN CORPUSCULAR HEMOGLOBIN 34.8 pg (25-34); MEAN CORPUSCULAR HGB CONC 32.8 g/dl (32-36); MEAN PLATELET VOLUME 10.4 fL (7.4-10.4); PLATELET COUNT 136 K/uL (130-400); RED BLOOD COUNT 3.36 M/uL (4.7-6.1)
[2016-07-17 19:14] LABS: BASO ABS # 0.09 K/uL (0-0.2); BASOPHIL % 0.9 % (0-2); COMPLETE YES; EOSINOPHIL % 2.6 %; LYMPH ABS # 1.77 K/uL (1.2-3.4); LYMPHOCYTE % 17.4 %; NEUTROPHILS % 27.8 %; SMUDGE CELLS PRESENT; VARIANT LYM ABS # 4.88 K/uL; VARIANT LYMPHOCYTE % 47.8 %
== END | disposition home or self-care (01) ==
LOC: C.LABMFLN 14:05
PROVIDERS: ATTEND Family Medicine
DX: I10 Essential (primary) hypertension (principal); E78.00 Pure hypercholesterolemia, unspecified; C85.90 Non-Hodgkin lymphoma, unspecified, unspecified site; R35.0 Frequency of micturition; E55.9 Vitamin D deficiency, unspecified; I67.9 Cerebrovascular disease, unspecified

== ENCOUNTER → 2017-03-26 | Outpatient (CLI) | payer OTHER ==
[2017-03-26 18:19] LABS: BLOOD UREA NITROGEN 30 mg/dl (7-18); CREATININE 1.31 mg/dl (0.60-1.40); GLUCOSE 84 mg/dl (70-99)
[2017-03-26 18:20] LABS: BUN/CREATININE RATIO 22.7 (10-20); CALCIUM 9.4 mg/dl (8.5-10.1); CARBON DIOXIDE 30 mmol/L (21-32); CHLORIDE 103 mmol/L (98-107); POTASSIUM 4.2 mmol/L (3.5-5.1); SODIUM 139 mmol/L (136-145)
[2017-03-26 18:31] LABS: ALB/GLOB RATIO 2.1 (0.9-2); ALKALINE PHOSPHATASE 104 U/L (45-117); ALT/SGPT 23 U/L (12-78); AST/SGOT 21 U/L (15-37)
[2017-03-26 19:26] LABS: COMPLETE YES; EOSINOPHIL % 0.9 %; HEMATOCRIT 44.3 % (42-52); LYMPH ABS # 23.01 K/uL (1.2-3.4); LYMPHOCYTE % 55.8 %; MEAN CELL VOLUME 109.4 fL (80-100); MEAN CORPUSCULAR HEMOGLOBIN 36.5 pg (25-34); MEAN CORPUSCULAR HGB CONC 33.4 g/dl (32-36); MEAN PLATELET VOLUME 10.7 fL (7.4-10.4); NEUTROPHILS % 8.8 %; PLATELET COUNT 96 K/uL (130-400); RED BLOOD COUNT 4.05 M/uL (4.7-6.1); VARIANT LYM ABS # 12.41 K/uL; VARIANT LYMPHOCYTE % 30.1 %; WHITE BLOOD COUNT 41.23 K/uL (4.8-10.8)
[2017-03-26 19:28] LABS: SMUDGE CELLS PRESENT
== END | disposition home or self-care (01) ==
LOC: C.LABMFLN 11:48
PROVIDERS: ATTEND Family Medicine
DX: E78.00 Pure hypercholesterolemia, unspecified (principal); I48.0 Paroxysmal atrial fibrillation; R63.4 Abnormal weight loss